=== PATIENT | female | born 1945 | race Caucasian/White ===

== ENCOUNTER 2020-11-27 16:31 | Inpatient (IN) | payer MEDICAID ==
[~2020-11-27] VITALS: Ht 160 cm; Wt 92.0 kg
[2020-11-27 19:00] VITALS: BP 133/82
[2020-11-27 23:00] VITALS: BP 123/80
[2020-11-27] MEDS: IV NORMAL SALINE 1000ML BAG 1,000 ML IV SCH (23:12)
[2020-11-27] MEDS: MORPHINE SULFATE 2 MG/ML VIAL. IV PRN (23:12)
[2020-11-27] MEDS: CIPROFLOXACIN 200MG PREMIX 100 ML IV SCH (23:13)
[2020-11-28] MEDS: MORPHINE SULFATE 2 MG/ML VIAL. IV PRN ×4 (02:33→18:28)
[2020-11-28 03:00] VITALS: BP 152/104
[2020-11-28 05:34] LABS: BASO % 0 % (0-3); EOS # 0.1 x10^3/uL (0.0-0.7); EOS % 1 % (0-3); HEMATOCRIT 39.7 % (36.0-47.0); HEMOGLOBIN 12.9 g/dL (12.0-15.5); LYMPH # 1.6 x10^3/uL (1.0-4.8); LYMPH % 12 % (24-48); MEAN CORPUSCULAR HEMOGLOBIN 27 pg (25-35); MEAN CORPUSCULAR HGB CONC 33 g/dL (31-37); MEAN CORPUSCULAR VOLUME 84 fL (79-100); MONO # 0.8 x10^3/uL (0.0-1.1); MONO % 7 % (0-9); NEUT # 10.2 x10^3/uL (1.8-7.7); NEUT % 80 % (31-73); PLATELET COUNT 415 x10^3/uL (140-400); RED BLOOD COUNT 4.73 x10^6/uL (3.50-5.40); RED CELL DISTRIBUTION WIDTH 15.4 % (11.5-14.5); WHITE BLOOD COUNT 12.7 x10^3/uL (4.0-11.0)
[2020-11-28 06:24] LABS: ALBUMIN 3.3 g/dL (3.4-5.0); ALBUMIN/GLOBULIN RATIO 0.9 (1.0-1.7); CALCIUM 8.9 mg/dL (8.5-10.1); CREATININE 0.8 mg/dL (0.6-1.0); GFR 70.5; POTASSIUM 3.5 mmol/L (3.5-5.1); TOTAL BILIRUBIN 0.4 mg/dL (0.2-1.0); TOTAL PROTEIN 7.1 g/dL (6.4-8.2)
[2020-11-28 07:00] VITALS: BP 116/73
--- NOTE | 2020-11-28 09:01 | PDOC2 ---
CONSULT Date of Consult Date of Consult DATE: 11/28/20 TIME: 08:52 Reason for Consult Reason for Consult: cholelithiasis Referring Physician Referring Physician: ER Identification/Chief Complaint Chief Complaint abdominal pain Source Source: Chart review, Patient History of Present Illness Reason for Visit: Patient is a poor historian. Report longstanding hx of upper abdominal pain. Worsening this last week. Acidic foods seem to aggravate pain. She does report intermittent issues with diarrhea chronically Thinks shes had ulcers in the past, not really sure-her almond sorter is not present Past Medical History Past Medical History fibromyalsia CENTRAL NERVOUS SYSTEM: Seizure GI: GERD, Peptic Ulcer disease (?) Psych: Depression Past Surgical History Past Surgical History: Cholecystectomy, Hysterectomy Family History Family History: Family History Unknown Social History No ALCOHOL: none Drugs: None Current Medications Current Medications Current Medications Sodium Chloride 1,000 ml @ 75 mls/hr [id number] IV Last administered on 11/27/20at 23:12; Start 11/27/20 at 22:45 Metronidazole 100 ml @ 100 mls/hr Q12HR IV Last administered on 11/27/20at 23:45; Start 11/27/20 at 23:00 Ciprofloxacin/ Dextrose 100 ml @ 100 mls/hr Q12HR IV Last administered on 11/27/20at 23:13; Start 11/27/20 at 23:00 Morphine Sulfate (Morphine Sulfate) 2 mg PRN Q3HRS PRN IV PAIN Last administered on 11/28/20at 05:38; Start 11/27/20 at 22:45 Ondansetron HCl (Zofran) 4 mg PRN Q4HRS PRN IVP NAUSEA/VOMITING; Start 11/27/20 at 22:45 Allergies Allergies: Coded Allergies: No Known Drug Allergies (Unverified , 11/27/20) ROS General: YES: Fatigue; No: Chills PSYCHOLOGICAL ROS: No: Anxiety, Depression Eyes: No Blurry vision, No Double vision HEENT: No: Heacaches, Sore Throat Hematological and Lymphatic: No: Bleeding Problems, Blood Clots Respiratory: No: Cough, Shortness of breath Cardiovascular: No Chest Pain, No Palpitations Gastrointestinal: Yes Other (see hpi) Genitourinary: No Dysuria, No Retention Musculoskeletal: No Joint Pain, No Muscle Pain Neurological: No Impaired Coord/balance, No Numbness/Tingling Skin: No Pruritus, No Rash Physical Exam General: Alert, Oriented X3, Cooperative HEENT: Atraumatic, PERRLA Lungs: Clear to auscultation, Normal air movement Heart: Regular rate, Normal S1, Normal S2 Abdomen: Normal bowel sounds, Soft, Other (mild epigastric TTP) Extremities: No clubbing, No cyanosis Skin: No rashes, No breakdown Neuro: Normal gait, Normal speech Psych/Mental Status: Mental status NL, Mood NL MUSCULOSKELETAL: No deformity, No swelling Vitals VITALS Vital Signs Date Time Temp Pulse Resp B/P (MAP) Pulse Ox O2 Delivery O2 Flow Rate FiO2 11/28/20 07:00 97.5 85 18 116/73 (87) 95 Room Air 97.5 Labs Labs Laboratory Tests Test 11/28/20 04:10 White Blood Count 12.7 x10^3/uL (4.0-11.0) Red Blood Count 4.73 x10^6/uL (3.50-5.40) Hemoglobin 12.9 g/dL (12.0-15.5) Hematocrit 39.7 % (36.0-47.0) Mean Corpuscular Volume 84 fL (79-100) Mean Corpuscular Hemoglobin 27 pg (25-35) Mean Corpuscular Hemoglobin Concent 33 g/dL (31-37) Red Cell Distribution Width 15.4 % (11.5-14.5) Platelet Count 415 x10^3/uL (140-400) Neutrophils (%) (Auto) 80 % (31-73) Lymphocytes (%) (Auto) 12 % (24-48) Monocytes (%) (Auto) 7 % (0-9) Eosinophils (%) (Auto) 1 % (0-3) Basophils (%) (Auto) 0 % (0-3) Neutrophils # (Auto) 10.2 x10^3/uL (1.8-7.7) Lymphocytes # (Auto) 1.6 x10^3/uL (1.0-4.8) Monocytes # (Auto) 0.8 x10^3/uL (0.0-1.1) Eosinophils # (Auto) 0.1 x10^3/uL (0.0-0.7) Basophils # (Auto) 0.0 x10^3/uL (0.0-0.2) Sodium Level 142 mmol/L (136-145) Potassium Level 3.5 mmol/L (3.5-5.1) Chloride Level 104 mmol/L (98-107) Carbon Dioxide Level 25 mmol/L (21-32) Anion Gap 13 (6-14) Blood Urea Nitrogen 11 mg/dL (7-20) Creatinine 0.8 mg/dL (0.6-1.0) Estimated GFR (Cockcroft-Gault) 70.5 BUN/Creatinine Ratio 14 (6-20) Glucose Level 124 mg/dL (70-99) Calcium Level 8.9 mg/dL (8.5-10.1) Total Bilirubin 0.4 mg/dL (0.2-1.0) Aspartate Amino Transf (AST/SGOT) 36 U/L (15-37) Alanine Aminotransferase (ALT/SGPT) 21 U/L (14-59) Alkaline Phosphatase 102 U/L (46-116) Total Protein 7.1 g/dL (6.4-8.2) Albumin 3.3 g/dL (3.4-5.0) Albumin/Globulin Ratio 0.9 (1.0-1.7) Laboratory Tests Test 11/28/20 04:10 White Blood Count 12.7 x10^3/uL (4.0-11.0) Red Blood Count 4.73 x10^6/uL (3.50-5.40) Hemoglobin 12.9 g/dL (12.0-15.5) Hematocrit 39.7 % (36.0-47.0) Mean Corpuscular Volume 84 fL (79-100) Mean Corpuscular Hemoglobin 27 pg (25-35) Mean Corpuscular Hemoglobin Concent 33 g/dL (31-37) Red Cell Distribution Width 15.4 % (11.5-14.5) Platelet Count 415 x10^3/uL (140-400) Neutrophils (%) (Auto) 80 % (31-73) Lymphocytes (%) (Auto) 12 % (24-48) Monocytes (%) (Auto) 7 % (0-9) Eosinophils (%) (Auto) 1 % (0-3) Basophils (%) (Auto) 0 % (0-3) Neutrophils # (Auto) 10.2 x10^3/uL (1.8-7.7) Lymphocytes # (Auto) 1.6 x10^3/uL (1.0-4.8) Monocytes # (Auto) 0.8 x10^3/uL (0.0-1.1) Eosinophils # (Auto) 0.1 x10^3/uL (0.0-0.7) Basophils # (Auto) 0.0 x10^3/uL (0.0-0.2) Sodium Level 142 mmol/L (136-145) Potassium Level 3.5 mmol/L (3.5-5.1) Chloride Level 104 mmol/L (98-107) Carbon Dioxide Level 25 mmol/L (21-32) Anion Gap 13 (6-14) Blood Urea Nitrogen 11 mg/dL (7-20) Creatinine 0.8 mg/dL (0.6-1.0) Estimated GFR (Cockcroft-Gault) 70.5 BUN/Creatinine Ratio 14 (6-20) Glucose Level 124 mg/dL (70-99) Calcium Level 8.9 mg/dL (8.5-10.1) Total Bilirubin 0.4 mg/dL (0.2-1.0) Aspartate Amino Transf (AST/SGOT) 36 U/L (15-37) Alanine Aminotransferase (ALT/SGPT) 21 U/L (14-59) Alkaline Phosphatase 102 U/L (46-116) Total Protein 7.1 g/dL (6.4-8.2) Albumin 3.3 g/dL (3.4-5.0) Albumin/Globulin Ratio 0.9 (1.0-1.7) Assessment/Plan Assessment/Plan abdominal pain s/p marc many years ago Ct findings with possible distal CBD stone--LFTS normal wall thickening to duodenum--possible doudenitis vs PUD, possible doudenal soft tissue density await Gi RAQUEL Pimentel APRN Nov 28, 2020 09:01
[2020-11-28] MEDS: CIPROFLOXACIN 200MG PREMIX 100 ML IV SCH ×2 (09:05→21:27)
--- NOTE | 2020-11-28 09:23 | PDOC2 ---
GI CONSULT Date of Service: DATE: 11/28/20 TIME: 09:23 Reason For Consult: cholelithiasis HPI: HPI: 74 y/o female sent from [facility]. Ill for >1 month w/ fatigue and "pins and needles" feeling all over abdomen (but mostly BLQ) - occurs randomly. Also describes intermittent epigastric pain and says "I can't eat citrus." No n/v. Had diarrhea once a couple days ago. CT A/P w/ IV contrast showed focal mucosal defect in the left lateral wall of the duodenal bulb with mild wall thickening and subtle adjacent fat stranding suggestive of mild duodenitis probably secondary to peptic ulcer disease, also anterior to this there is an ill-defined 1.4cm soft tissue density within the duodenal bulb (prominent fold vs neoplasm), slightly worsening intrapheatic and extrahepatic biliary ductal dilation w/ smooth tapering distally w/ 6cm calcified focus in distal CBD, sigmoid diverticulosis, small to moderate hiatal hernia, atrophic pancreas w/ fat infiltration. H/o GERD - thinks she takes a pill for this but not sure what; her shellfish shucker manages her medications. No dysphagia, constipation, hematochezia, or melena. Has lost 24 pounds - timing unclear. Reports previous EGDs and colonoscopies - "it's been a long time." These were performed in [place] and somewhere in the area. Says "I have four ulcers." Thinks she had cholecystectomy at time of hysterectomy after miscarriage. Doesn't recall specific details. Denies liver and pancreas history. Denies NSAID use. D/w nurse - no med list available for review. PMH: PMH: fibromyalgia, depression, seizures hysterectomy, cholecystectomy, ankle surgeries w/ hardware FH: Family History: No pertinent hx Social History: Smoke: No ALCOHOL: rare (on New Year's Christine if her doctor says it's okay) Drugs: None ROS: GEN: +fatigue HEENT: Denies blurred vision, sore throat CV: Denies chest pain RESP: Denies shortness of air, cough GI: Per HPI : Denies hematuria, dysuria ENDO: +weight loss NEURO: Denies confusion, dizziness MSK: Denies weakness, joint pain/swelling SKIN: Denies jaundice, pruritus Vitals: Vitals: Vital Signs Date Time Temp Pulse Resp B/P (MAP) Pulse Ox O2 Delivery O2 Flow Rate FiO2 11/28/20 07:00 97.5 85 18 116/73 (87) 95 Room Air 97.5 Labs: Labs: Laboratory Tests Test 11/28/20 04:10 White Blood Count 12.7 x10^3/uL (4.0-11.0) Red Blood Count 4.73 x10^6/uL (3.50-5.40) Hemoglobin 12.9 g/dL (12.0-15.5) Hematocrit 39.7 % (36.0-47.0) Mean Corpuscular Volume 84 fL (79-100) Mean Corpuscular Hemoglobin 27 pg (25-35) Mean Corpuscular Hemoglobin Concent 33 g/dL (31-37) Red Cell Distribution Width 15.4 % (11.5-14.5) Platelet Count 415 x10^3/uL (140-400) Neutrophils (%) (Auto) 80 % (31-73) Lymphocytes (%) (Auto) 12 % (24-48) Monocytes (%) (Auto) 7 % (0-9) Eosinophils (%) (Auto) 1 % (0-3) Basophils (%) (Auto) 0 % (0-3) Neutrophils # (Auto) 10.2 x10^3/uL (1.8-7.7) Lymphocytes # (Auto) 1.6 x10^3/uL (1.0-4.8) Monocytes # (Auto) 0.8 x10^3/uL (0.0-1.1) Eosinophils # (Auto) 0.1 x10^3/uL (0.0-0.7) Basophils # (Auto) 0.0 x10^3/uL (0.0-0.2) Sodium Level 142 mmol/L (136-145) Potassium Level 3.5 mmol/L (3.5-5.1) Chloride Level 104 mmol/L (98-107) Carbon Dioxide Level 25 mmol/L (21-32) Anion Gap 13 (6-14) Blood Urea Nitrogen 11 mg/dL (7-20) Creatinine 0.8 mg/dL (0.6-1.0) Estimated GFR (Cockcroft-Gault) 70.5 BUN/Creatinine Ratio 14 (6-20) Glucose Level 124 mg/dL (70-99) Calcium Level 8.9 mg/dL (8.5-10.1) Total Bilirubin 0.4 mg/dL (0.2-1.0) Aspartate Amino Transf (AST/SGOT) 36 U/L (15-37) Alanine Aminotransferase (ALT/SGPT) 21 U/L (14-59) Alkaline Phosphatase 102 U/L (46-116) Total Protein 7.1 g/dL (6.4-8.2) Albumin 3.3 g/dL (3.4-5.0) Albumin/Globulin Ratio 0.9 (1.0-1.7) Allergies: Coded Allergies: No Known Drug Allergies (Unverified , 11/27/20) Medications: Current Medications Medications (Trade) Dose Ordered Sig/Lucas Route PRN Reason Start Time Stop Time Status Last Admin Dose Admin Sodium Chloride 1,000 ml @ 75 mls/hr [id number] IV 11/27/20 22:45 11/27/20 23:12 Metronidazole 100 ml @ 100 mls/hr Q12HR IV 11/27/20 23:00 11/27/20 23:45 Ciprofloxacin/ Dextrose 100 ml @ 100 mls/hr Q12HR IV 11/27/20 23:00 11/28/20 09:05 Morphine Sulfate (Morphine Sulfate) 2 mg PRN Q3HRS PRN IV PAIN 11/27/20 22:45 11/28/20 05:38 Imaging: Imaging: per HPI PE: GEN: NAD HEENT: Atraumatic, PERRL LUNGS: CTAB HEART: RRR ABD: NABS, S/ND/NT EXTREMITY: No edema SKIN: No rashes, no jaundice NEURO/PSYCH: A & O 3 A/P: A/P: Fatigue, abd pain, weight loss Leukocytosis Abnormal CT: focal mucosal defect in left lateral wall of duodenal bulb with mild wall thickening and subtle adjacent fat stranding suggestive of mild duodenitis, 1.4cm soft tissue density within duodenal bulb, slightly worsening intrapheatic and extrahepatic biliary ductal dilation w/ smooth tapering distally, 6cm calcified focus in distal CBD GERD, hiatal hernia, h/o PUD CRC screen - reports normal colonoscopies in the past Diverticulosis S/p cholecystectomy ?dementia -- Abd pain and weight loss w/ duodenal abnormalities, ?choledocholithaisis, worsening biliary dilation - LFTs normal. D/w Deanne/surgery. D/w Dr. Horowitz - will ask for MRCP. NPO, IV PPI for now. ?need for atbx MELONIE CASTANO Nov 28, 2020 09:23
--- NOTE | 2020-11-28 10:10 | NUR ---
SW following. Discussed with RN, pt from home alone, room air, NPO. Surgery and GI following. RN ordering PT/OT. Pt reporting she has a caregiver everyday. SW awaiting further plan of care. SW will continue to follow.
[2020-11-28] MEDS: ONDANSETRON PF 4 MG/2 ML VIAL. IVP PRN ×2 (10:30→18:20)
[2020-11-28] MEDS: PANTOPRAZOLE IV PUSH 40 MG VIAL. IVP SCH (10:30)
--- NOTE | 2020-11-28 10:52 | PDOC1 ---
History and Physical Date of Admission Date of Admission DATE: 11/28/20 TIME: 10:51 Identification/Chief Complaint Chief Complaint abdominal pain, transfer from [facility] History of Present Illness History of Present Illness 74 yr old female with complaint of persistent abdominal pain Reports previous EGDs and colonoscopies with hx PUD Past Medical History Past Medical History PMH: PMH: fibromyalgia, depression, seizures hysterectomy, cholecystectomy, ankle surgeries w/ hardware FH: Family History: No pertinent hx Social History: Smoke: No ALCOHOL: rare (on New Year's Christine if her doctor says it's okay) Drugs: None CENTRAL NERVOUS SYSTEM: Seizure GI: GERD, Peptic Ulcer disease (?) Psych: Depression Dermatology: No pertinent hx Past Surgical History Past Surgical History: Cholecystectomy, Hysterectomy Family History Family History: Family History Unknown Social History Smoke: No ALCOHOL: none Drugs: None Current Medications Current Medications Current Medications Sodium Chloride 1,000 ml @ 75 mls/hr [id number] IV Last administered on 11/27/20at 23:12; Start 11/27/20 at 22:45 Metronidazole 100 ml @ 100 mls/hr Q12HR IV Last administered on 11/28/20at 10:20; Start 11/27/20 at 23:00 Ciprofloxacin/ Dextrose 100 ml @ 100 mls/hr Q12HR IV Last administered on 11/28/20at 09:05; Start 11/27/20 at 23:00 Morphine Sulfate (Morphine Sulfate) 2 mg PRN Q3HRS PRN IV PAIN Last administered on 11/28/20at 10:27; Start 11/27/20 at 22:45 Ondansetron HCl (Zofran) 4 mg PRN Q4HRS PRN IVP NAUSEA/VOMITING Last administered on 11/28/20at 10:30; Start 11/27/20 at 22:45 Pantoprazole Sodium (PROTONIX VIAL for IV PUSH) 40 mg DAILYAC IVP Last administered on 11/28/20at 10:30; Start 11/28/20 at 10:00 Allergies Allergies: Coded Allergies: No Known Drug Allergies (Unverified , 11/27/20) ROS General: No: Chills, Night Sweats, Fatigue, Malaise, Appetite, Other PSYCHOLOGICAL ROS: No: Anxiety, Behavioral Disorder, Concentration difficultie, Decreased libido, Depression, Disorientation, Hallucinations, Hostility, Ir ritablity, Memory difficulties, Mood Swings, Obsessive thoughts, Physical abuse, Sexual abuse, Sleep disturbances, Suicidal ideation, Other Eyes: No Blurry vision, No Decreased vision, No Double vision, No Dry eyes, No Excessive tearing, No Eye Pain, No Itchy Eyes, No Loss of vision, No Photophobia, No Scotomata, No Uses contacts, No Uses glasses, No Other HEENT: No: Heacaches, Visual Changes, Hearing change, Nasal congestion, Nasal discharge, Oral lesions, Sinus pain, Sore Throat, Epistaxis, Sneezing, Snoring, Tinnitus, Vertigo, Vocal changes, Other ALLERGY AND IMMUNOLOGY: No: Hives, Insect Bite Sensitivity, Itchy/Watery Eyes, Nasal Congestion, Post Nasal Drip, Seasonal Allergies, Other Hematological and Lymphatic: No: Bleeding Problems, Blood Clots, Blood Transfusions, Brusing, Night Sweats, Pallor, Swollen Lymph Nodes, Other ENDOCRINE: No: Breast Changes, Galactorrhea, Hair Pattern Changes, Hot Flashes, Malaise/lethargy, Mood Swings, Palpitations, Polydipsia/polyuria, Skin Changes, Temperature Intolerance, Unexpected Weight Changes, Other Breast: No New/Changing Breast Lumps, No Nipple changes, No Nipple discharge, No Other Respiratory: No: Cough, Hemoptysis, Orthopnea, Pleuritic Pain, Shortness of breath, SOB with excertion, Sputum Changes, Stridor, Tachypnea, Wheezing, Other Cardiovascular: No Chest Pain, No Palpitations, No Orthopnea, No Paroxysmal Noc. Dyspnea, No Edema, No Lt Headedness, No Other Gastrointestinal: Yes Nausea, Yes Abdominal Pain; No Vomiting, No Diarrhea, No Constipation, No Melena, No Hematochezia, No Other Genitourinary: No Dysuria, No Frequency, No Incontinence, No Hematuria, No Retention, No Discharge, No Urgency, No Pain, No Flank Pain, No Other, No , No , No , No , No , No , No Musculoskeletal: Yes Gait Disturbance Neurological: No Behavorial Changes, No Bowel/Bladder ControlChng, No Confusion, No Dizziness, No Gait Disturbance, No Headaches, No Impaired Coord/balance, No Memory Loss, No Numbness/Tingling, No Seizures, No Speech Pr oblems, No Tremors, No Visual Changes, No Weakness, No Other Skin: No Dry Skin, No Eczema, No Hair Changes, No Lumps, No Mole Changes, No Mottling, No Nail Changes, No Pruritus, No Rash, No Skin Lesion Changes, No Other, No Acne Physical Exam General: Alert, Oriented X3, Cooperative, No acute distress HEENT: PERRLA Lungs: Clear to auscultation, Normal air movement Heart: RRR Breasts: Not examined Abdomen: Normal bowel sounds, Soft, No tenderness Rectal Exam: not examined PELVIC: Examination not indicated Extremities: No cyanosis Neuro: Normal speech, Strength at 5/5 X4 ext, Cranial nerves 3-12 NL Psych/Mental Status: Mental status NL, Mood NL Vitals Vitals Vital Signs Date Time Temp Pulse Resp B/P (MAP) Pulse Ox O2 Delivery O2 Flow Rate FiO2 11/28/20 07:00 97.5 85 18 116/73 (87) 95 Room Air 97.5 Labs Labs Laboratory Tests Test 11/28/20 04:10 White Blood Count 12.7 x10^3/uL (4.0-11.0) Red Blood Count 4.73 x10^6/uL (3.50-5.40) Hemoglobin 12.9 g/dL (12.0-15.5) Hematocrit 39.7 % (36.0-47.0) Mean Corpuscular Volume 84 fL (79-100) Mean Corpuscular Hemoglobin 27 pg (25-35) Mean Corpuscular Hemoglobin Concent 33 g/dL (31-37) Red Cell Distribution Width 15.4 % (11.5-14.5) Platelet Count 415 x10^3/uL (140-400) Neutrophils (%) (Auto) 80 % (31-73) Lymphocytes (%) (Auto) 12 % (24-48) Monocytes (%) (Auto) 7 % (0-9) Eosinophils (%) (Auto) 1 % (0-3) Basophils (%) (Auto) 0 % (0-3) Neutrophils # (Auto) 10.2 x10^3/uL (1.8-7.7) Lymphocytes # (Auto) 1.6 x10^3/uL (1.0-4.8) Monocytes # (Auto) 0.8 x10^3/uL (0.0-1.1) Eosinophils # (Auto) 0.1 x10^3/uL (0.0-0.7) Basophils # (Auto) 0.0 x10^3/uL (0.0-0.2) Sodium Level 142 mmol/L (136-145) Potassium Level 3.5 mmol/L (3.5-5.1) Chloride Level 104 mmol/L (98-107) Carbon Dioxide Level 25 mmol/L (21-32) Anion Gap 13 (6-14) Blood Urea Nitrogen 11 mg/dL (7-20) Creatinine 0.8 mg/dL (0.6-1.0) Estimated GFR (Cockcroft-Gault) 70.5 BUN/Creatinine Ratio 14 (6-20) Glucose Level 124 mg/dL (70-99) Calcium Level 8.9 mg/dL (8.5-10.1) Total Bilirubin 0.4 mg/dL (0.2-1.0) Aspartate Amino Transf (AST/SGOT) 36 U/L (15-37) Alanine Aminotransferase (ALT/SGPT) 21 U/L (14-59) Alkaline Phosphatase 102 U/L (46-116) Total Protein 7.1 g/dL (6.4-8.2) Albumin 3.3 g/dL (3.4-5.0) Albumin/Globulin Ratio 0.9 (1.0-1.7) Laboratory Tests Test 11/28/20 04:10 White Blood Count 12.7 x10^3/uL (4.0-11.0) Red Blood Count 4.73 x10^6/uL (3.50-5.40) Hemoglobin 12.9 g/dL (12.0-15.5) Hematocrit 39.7 % (36.0-47.0) Mean Corpuscular Volume 84 fL (79-100) Mean Corpuscular Hemoglobin 27 pg (25-35) Mean Corpuscular Hemoglobin Concent 33 g/dL (31-37) Red Cell Distribution Width 15.4 % (11.5-14.5) Platelet Count 415 x10^3/uL (140-400) Neutrophils (%) (Auto) 80 % (31-73) Lymphocytes (%) (Auto) 12 % (24-48) Monocytes (%) (Auto) 7 % (0-9) Eosinophils (%) (Auto) 1 % (0-3) Basophils (%) (Auto) 0 % (0-3) Neutrophils # (Auto) 10.2 x10^3/uL (1.8-7.7) Lymphocytes # (Auto) 1.6 x10^3/uL (1.0-4.8) Monocytes # (Auto) 0.8 x10^3/uL (0.0-1.1) Eosinophils # (Auto) 0.1 x10^3/uL (0.0-0.7) Basophils # (Auto) 0.0 x10^3/uL (0.0-0.2) Sodium Level 142 mmol/L (136-145) Potassium Level 3.5 mmol/L (3.5-5.1) Chloride Level 104 mmol/L (98-107) Carbon Dioxide Level 25 mmol/L (21-32) Anion Gap 13 (6-14) Blood Urea Nitrogen 11 mg/dL (7-20) Creatinine 0.8 mg/dL (0.6-1.0) Estimated GFR (Cockcroft-Gault) 70.5 BUN/Creatinine Ratio 14 (6-20) Glucose Level 124 mg/dL (70-99) Calcium Level 8.9 mg/dL (8.5-10.1) Total Bilirubin 0.4 mg/dL (0.2-1.0) Aspartate Amino Transf (AST/SGOT) 36 U/L (15-37) Alanine Aminotransferase (ALT/SGPT) 21 U/L (14-59) Alkaline Phosphatase 102 U/L (46-116) Total Protein 7.1 g/dL (6.4-8.2) Albumin 3.3 g/dL (3.4-5.0) Albumin/Globulin Ratio 0.9 (1.0-1.7) Images Images It helps to think and talk about your own wishes for healthcare in case youre ever not able to tell your loved ones or healthcare team what your wishes are. If you became really sick tomorrow, would your loved ones or healthcare team know what your wishes were? Here are some examples of different sets of goals and health care directives for your conversations: My wish is to use all medical therapies including resuscitation (such as CPR) and artificial life- sustaining treatments (such as machines and medicine) in an intensive care unit, to keep me alive if at all possible. My wish is to live as long as possible, but I dont want attempts to bring me back to life if my heart and breathing stop. I would like full medical care but without using resuscitation or artificial life-sustaining intensive treatments, if these are unlikely to make me live longer or restore me to a certain quality of life. I will accept treatments that try to fix medical problems, but if Im not getting better or going to have a certain quality of life, I would want to switch to focusing only on my comfort and letting my happen naturally. My wish is for healthcare to focus on my comfort and lessen suffering. I would like medical care that focuses only on my quality of life and that allows me to naturally. Consider: What does a good quality of life mean for me? For many people, it is the ability to live independently and tell their own story. I may define it differently. Under what circumstances would I not want to be kept alive by medical treatments, resuscitation, or intensive care? What kind of changes to my health or life might make me change my mind? If I clearly am facing the last chapter of my life, how do I want the story to end? Who do I want to speak for me if I cant speak for myself? Do they understand my preferences? Are they willing to assume the role of my Durable Power of Casing Tester? Can I change my Goals of Care Designation? Yes, your Goals of Care Designation can be changed at any time. It should be reviewed if: your health condition changes your circumstances change (such as new understanding) you are transferred or admitted to another healthcare setting dpoa review to pt portal and questions 22 min VTE Prophylaxis Ordered VTE Prophylaxis Devices: Yes VTE Pharmacological Prophylaxi: Yes Assessment/Plan Assessment/Plan impression Intractable abdominal hi Choledocholithiasis Ct findings with possible distal CBD stone--LFTS normal wall thickening to duodenum--possible doudenitis vs PUD, possible doudenal soft tissue density morbid obesity hx CAD PREDIABETES MAJOR depressive disorder osteoarthritis incontinence, urinary, chronis HX PUD, Duodenal ulcer hyperlipidemia Epilepsy hx COPD PLAN Admit per GI/ Dr. Horowitz - MRCP. NPO, IV PPI for now. iv pain control D/W ER Justifications for Admission Other Justification KHAI CARTER MD Nov 28, 2020 10:51
[2020-11-28] MEDS ORDERED: TRAZ-118 PO (10:58)
[2020-11-28] MEDS ORDERED: ONDA4TAB7 PO (10:58)
[2020-11-28 11:00] VITALS: BP 134/77
[2020-11-28] MEDS ORDERED: DULO60CA6 PO (11:00)
[2020-11-28] MEDS ORDERED: CETI10TA74 PO (11:00)
[2020-11-28] MEDS ORDERED: LEVE500T6 PO (11:00)
[2020-11-28] MEDS ORDERED: MONT10TA49 PO (11:01)
[2020-11-28] MEDS ORDERED: LISI2.5T PO (11:07)
[2020-11-28] MEDS ORDERED: PROAIR RESPICL90 MCG IH (11:07)
[2020-11-28] MEDS ORDERED: PRAV40TA2 PO (11:07)
[2020-11-28] MEDS ORDERED: DICL20GE TP (11:07)
[2020-11-28] MEDS ORDERED: CARV25TA2 PO (11:07)
[2020-11-28] MEDS ORDERED: FLUT9.9S NS (11:07)
[2020-11-28] MEDS ORDERED: FAMO40TA4 PO (11:07)
[2020-11-28] MEDS ORDERED: QUET50TA5 PO (11:07)
[2020-11-28] MEDS ORDERED: SUCR1TAB PO (11:07)
[2020-11-28] MEDS: IV NORMAL SALINE 1000ML BAG 1,000 ML IV SCH (12:14)
[2020-11-28 15:00] VITALS: BP 110/69
--- NOTE | 2020-11-28 17:04 | NUR ---
Dr. Manriquez gave order to decrease pt IV fluids to 50ml/hr
[2020-11-28 19:00] VITALS: BP 119/76
[2020-11-28 23:00] VITALS: BP 109/66
[2020-11-29 02:26] LABS: BILIRUBIN,URINE NEGATIVE (NEG); CLARITY,URINE CLEAR; COLOR,URINE YELLOW; NITRITE,URINE NEGATIVE (NEG); PH,URINE 6.5 (<5.0-8.0); PROTEIN,URINE NEGATIVE (NEG-TRACE); UROBILINOGEN,URINE 0.2 mg/dL (0.2 mg/dL)
[2020-11-29 02:32] LABS: BACTERIA,URINE 0 /HPF (0-FEW); RBC,URINE 0 /HPF (0-2)
[2020-11-29 03:00] VITALS: BP 99/45
[2020-11-29] MEDS: IV NORMAL SALINE 1000ML BAG 1,000 ML IV SCH ×2 (03:27→14:45)
[2020-11-29 07:00] VITALS: BP 99/52
[2020-11-29] MEDS: MORPHINE SULFATE 2 MG/ML VIAL. IV PRN (07:43)
[2020-11-29] MEDS: ONDANSETRON PF 4 MG/2 ML VIAL. IVP PRN (07:43)
[2020-11-29] MEDS: PANTOPRAZOLE IV PUSH 40 MG VIAL. IVP SCH (07:43)
[2020-11-29 07:51] LABS: HEMATOCRIT 34.9 % (36.0-47.0); HEMOGLOBIN 11.3 g/dL (12.0-15.5); RED BLOOD COUNT 4.12 x10^6/uL (3.50-5.40); RED CELL DISTRIBUTION WIDTH 15.5 % (11.5-14.5); WHITE BLOOD COUNT 9.8 x10^3/uL (4.0-11.0)
[2020-11-29 08:01] LABS: ALBUMIN 2.7 g/dL (3.4-5.0); ALBUMIN/GLOBULIN RATIO 0.8 (1.0-1.7); CALCIUM 8.2 mg/dL (8.5-10.1); CREATININE 0.9 mg/dL (0.6-1.0); GFR 61.5; POTASSIUM 3.5 mmol/L (3.5-5.1); TOTAL BILIRUBIN 0.3 mg/dL (0.2-1.0); TOTAL PROTEIN 5.9 g/dL (6.4-8.2)
[2020-11-29] MEDS: CIPROFLOXACIN 200MG PREMIX 100 ML IV SCH ×4 (08:34→20:28)
--- NOTE | 2020-11-29 09:27 | PDOC ---
Date of Service: DATE: 11/29/20 TIME: 09:22 Subjective: Subjective: Feels fine, just waiting. Had a hard time sleeping because it gets light so early. Objective: Vital Signs: Vital Signs Date Time Temp Pulse Resp B/P (MAP) Pulse Ox O2 Delivery O2 Flow Rate FiO2 11/29/20 07:00 98.0 72 18 99/52 (68) 94 Room Air 98.0 Labs: Laboratory Tests Test 11/29/20 02:00 11/29/20 07:00 Urine Collection Type Unknown Urine Color Yellow Urine Clarity Clear Urine pH 6.5 Urine Specific [place] <=1.005 Urine Protein Negative mg/dL Urine Glucose (UA) Negative mg/dL Urine Ketones (Stick) Negative mg/dL Urine Blood Negative Urine Nitrite Negative Urine Bilirubin Negative Urine Urobilinogen Dipstick 0.2 mg/dL Urine Leukocyte Esterase Trace Urine RBC 0 /HPF Urine WBC 5-10 /HPF Urine Squamous Epithelial Cells Few /LPF Urine Bacteria 0 /HPF White Blood Count 9.8 x10^3/uL Red Blood Count 4.12 x10^6/uL Hemoglobin 11.3 g/dL Hematocrit 34.9 % Mean Corpuscular Volume 85 fL Mean Corpuscular Hemoglobin 27 pg Mean Corpuscular Hemoglobin Concent 32 g/dL Red Cell Distribution Width 15.5 % Platelet Count 369 x10^3/uL Sodium Level 143 mmol/L Potassium Level 3.5 mmol/L Chloride Level 109 mmol/L Carbon Dioxide Level 26 mmol/L Anion Gap 8 Blood Urea Nitrogen 6 mg/dL Creatinine 0.9 mg/dL Estimated GFR (Cockcroft-Gault) 61.5 BUN/Creatinine Ratio 7 Glucose Level 97 mg/dL Calcium Level 8.2 mg/dL Total Bilirubin 0.3 mg/dL Aspartate Amino Transf (AST/SGOT) 24 U/L Alanine Aminotransferase (ALT/SGPT) 19 U/L Alkaline Phosphatase 84 U/L Total Protein 5.9 g/dL Albumin 2.7 g/dL Albumin/Globulin Ratio 0.8 PE: GEN: NAD LUNGS: CTAB HEART: RRR ABD: NABS, S/ND/NT NEURO/PSYCH: A & O 3 A/P: Fatigue, abd pain (none today), weight loss Mild anemia Abnormal duodenum, biliary dilation, focus in distal CBD s/p cholecystectomy w/ h/o PUD -- Awaiting MRCP. LFTs still normal. Urine cx pending. Check anemia parameters for completeness. Justicifation of Admission Dx: Justifications for Admission: Justification of Admission Dx: Yes MELONIE CASTANO Nov 29, 2020 09:27
--- NOTE | 2020-11-29 10:22 | NUR ---
SW following. Discussed with RN, pt from home alone, room air, NPO. Pt having an MRCP today. PT/OT ordered - RN feels pt doesn't really need therapy, as she got up to the restroom with ASHLEY JOEL speaking to Dr. Manriquez about cancelling therapy orders. RN advised no SW needs at this time. SW will continue to follow.
--- NOTE | 2020-11-29 13:32 | PDOC ---
[employer] PROGRESS NOTE Date of Service DOS: DATE: 11/29/20 TIME: 13:29 Chief Complaint Chief Complaint Intractable abdominal hi Choledocholithiasis Ct findings with possible distal CBD stone--LFTS normal wall thickening to duodenum--possible doudenitis vs PUD, possible doudenal soft tissue density morbid obesity hx CAD PREDIABETES MAJOR depressive disorder osteoarthritis incontinence, urinary, chronis HX PUD, Duodenal ulcer hyperlipidemia Epilepsy hx COPD PLAN Admit per GI/ Dr. Horowitz - MRCP. NPO, IV PPI for now. iv pain control History of Present Illness History of Present Illness 74 yr old female with complaint of persistent abdominal pain Reports previous EGDs and colonoscopies with hx PUD 11/29/2020: Afebrile. Patient reports improvement in abdominal pain. Plan for MRCP today. Discussed with RN. Vitals/I&O Vitals/I&O: Vital Signs Date Time Temp Pulse Resp B/P (MAP) Pulse Ox O2 Delivery O2 Flow Rate FiO2 11/29/20 08:00 Room Air 11/29/20 07:00 98.0 72 18 99/52 (68) 94 98.0 I & O 11/28/20 11/28/20 11/29/20 15:00 23:00 07:00 Intake Total 120 ml 1425 ml Balance 120 ml 1425 ml Physical Exam General: Alert, Oriented X3, Cooperative, No acute distress Heart: Regular rate, Normal S1, Normal S2 Abdomen: Normal bowel sounds, Soft Extremities: No cyanosis Skin: No rashes, No breakdown Labs Labs: Laboratory Tests Test 11/29/20 02:00 11/29/20 07:00 Urine Collection Type Unknown Urine Color Yellow Urine Clarity Clear Urine pH 6.5 (<5.0-8.0) Urine Specific [place] <=1.005 (1.000-1.030) Urine Protein Negative mg/dL (NEG-TRACE) Urine Glucose (UA) Negative mg/dL (NEG) Urine Ketones (Stick) Negative mg/dL (NEG) Urine Blood Negative (NEG) Urine Nitrite Negative (NEG) Urine Bilirubin Negative (NEG) Urine Urobilinogen Dipstick 0.2 mg/dL (0.2 mg/dL) Urine Leukocyte Esterase Trace (NEG) Urine RBC 0 /HPF (0-2) Urine WBC 5-10 /HPF (0-4) Urine Squamous Epithelial Cells Few /LPF Urine Bacteria 0 /HPF (0-FEW) White Blood Count 9.8 x10^3/uL (4.0-11.0) Red Blood Count 4.12 x10^6/uL (3.50-5.40) Hemoglobin 11.3 g/dL (12.0-15.5) Hematocrit 34.9 % (36.0-47.0) Mean Corpuscular Volume 85 fL (79-100) Mean Corpuscular Hemoglobin 27 pg (25-35) Mean Corpuscular Hemoglobin Concent 32 g/dL (31-37) Red Cell Distribution Width 15.5 % (11.5-14.5) Platelet Count 369 x10^3/uL (140-400) Sodium Level 143 mmol/L (136-145) Potassium Level 3.5 mmol/L (3.5-5.1) Chloride Level 109 mmol/L (98-107) Carbon Dioxide Level 26 mmol/L (21-32) Anion Gap 8 (6-14) Blood Urea Nitrogen 6 mg/dL (7-20) Creatinine 0.9 mg/dL (0.6-1.0) Estimated GFR (Cockcroft-Gault) 61.5 BUN/Creatinine Ratio 7 (6-20) Glucose Level 97 mg/dL (70-99) Calcium Level 8.2 mg/dL (8.5-10.1) Iron Level 28 ug/dL (50-170) Total Iron Binding Capacity 307 ug/dL (250-450) Iron Saturation 9 % (15-34) Total Bilirubin 0.3 mg/dL (0.2-1.0) Aspartate Amino Transf (AST/SGOT) 24 U/L (15-37) Alanine Aminotransferase (ALT/SGPT) 19 U/L (14-59) Alkaline Phosphatase 84 U/L (46-116) Total Protein 5.9 g/dL (6.4-8.2) Albumin 2.7 g/dL (3.4-5.0) Albumin/Globulin Ratio 0.8 (1.0-1.7) Vitamin B12 Level 480 pg/mL (247-911) Comment Review of Relevant I have reviewed the following items anurag (where applicable) has been applied. Justifications for Admission Other Justification ROSS LIZARRAGA MD Nov 29, 2020 13:32
--- NOTE | 2020-11-29 14:49 | RAD ---
EXAMINATION: MRI and MRCP abdomen without IV contrast. INDICATION: Abdominal pain and weight loss, possible choledocholithiasis on CT exam. TECHNIQUE: Multiplanar multisequence MRI and MRCP abdomen without IV contrast. 3-D coronal heavily T2 -weighted MRCP sequence performed. COMPARISON: CT dated 11/27/2020. FINDINGS: Within limitation of noncontrast exam, Normal morphology and size of the liver without focal lesion. No steatosis or deposition. Cholecystec jayesh. Dilated central intrahepatic and extrahepatic ducts with smooth tapering distally, the maximum diameter of the common bile duct measures 1.2 cm. There is a 5 mm nonobstructing distal choledocholit hiasis. Additional, questionable 3 mm filling defect at the ampulla. No splenomegaly. Moderate atrophic pancreatic parenchyma with fat infiltration. Prominent main pancre atic duct at the head with smooth tapering distally, measures 4 mm in maximum diameter. No adrenal nodule. No hydronephrosis. Subcentimeter simple right renal cysts measuring up to 0.9 mm. Unchanged small to moderate size hiatal hernia. Small uncomplicated D2 duodenal diverticulum. Redemon strated ill-defined 1.4 cm intermediate T2 signal intensity soft tissue within the duodenal bulb (ser ies 9 image 18). No bowel dilation. No lymphadenopathy in the abdomen by size criteria. No ascites. N ormal caliber abdominal aorta. No suspicious osseous lesion. Degenerative changes in the spine. Trace bilateral pleural effusions, new since prior exam. IMPRESSION: Within limitation of noncontrast exam, 1. Redemonstrated central intra and extrahepatic biliary ductal dilation with smooth tapering distall y. Questionable 3 mm filling defect at the ampulla, may represent an obstructing choledocholithiasis. Additional, 5 mm nonobstructing distal choledocholithiasis identified. 2. Redemonstrated ill-defined 1.4 cm soft tissue within the duodenal bulb, differential again include s prominent fold versus neoplasm. Recommend correlation with upper GI endoscopy. 3. New trace bilateral pleural effusions. Electronically signed by: Hector Nuñez MD (11/29/2020 2:46 PM) [facility]
[2020-11-29 15:00] VITALS: BP 113/65
--- NOTE | 2020-11-29 15:55 | PDOC ---
SURGICAL PROGRESS NOTE DATE: 11/29/20 TIME: 15:53 Subjective Pt without c/o, no n/V, denies significant pain Vital Signs Vital Signs Date Time Temp Pulse Resp B/P (MAP) Pulse Ox O2 Delivery O2 Flow Rate FiO2 11/29/20 08:00 Room Air 11/29/20 07:00 98.0 72 18 99/52 (68) 94 98.0 I&O Intake and Output 11/29/20 07:00 Intake Total 1545 ml Balance 1545 ml Intake Oral 120 ml IV Total 525 ml Other 900 ml # Voids 2 General: Alert, Oriented X3, Cooperative, No acute distress Abdomen: Soft, No tenderness Labs Laboratory Tests Test 11/28/20 04:10 11/29/20 02:00 11/29/20 07:00 White Blood Count 12.7 x10^3/uL (4.0-11.0) 9.8 x10^3/uL (4.0-11.0) Red Blood Count 4.73 x10^6/uL (3.50-5.40) 4.12 x10^6/uL (3.50-5.40) Hemoglobin 12.9 g/dL (12.0-15.5) 11.3 g/dL (12.0-15.5) Hematocrit 39.7 % (36.0-47.0) 34.9 % (36.0-47.0) Mean Corpuscular Volume 84 fL (79-100) 85 fL (79-100) Mean Corpuscular Hemoglobin 27 pg (25-35) 27 pg (25-35) Mean Corpuscular Hemoglobin Concent 33 g/dL (31-37) 32 g/dL (31-37) Red Cell Distribution Width 15.4 % (11.5-14.5) 15.5 % (11.5-14.5) Platelet Count 415 x10^3/uL (140-400) 369 x10^3/uL (140-400) Neutrophils (%) (Auto) 80 % (31-73) Lymphocytes (%) (Auto) 12 % (24-48) Monocytes (%) (Auto) 7 % (0-9) Eosinophils (%) (Auto) 1 % (0-3) Basophils (%) (Auto) 0 % (0-3) Neutrophils # (Auto) 10.2 x10^3/uL (1.8-7.7) Lymphocytes # (Auto) 1.6 x10^3/uL (1.0-4.8) Monocytes # (Auto) 0.8 x10^3/uL (0.0-1.1) Eosinophils # (Auto) 0.1 x10^3/uL (0.0-0.7) Basophils # (Auto) 0.0 x10^3/uL (0.0-0.2) Sodium Level 142 mmol/L (136-145) 143 mmol/L (136-145) Potassium Level 3.5 mmol/L (3.5-5.1) 3.5 mmol/L (3.5-5.1) Chloride Level 104 mmol/L (98-107) 109 mmol/L (98-107) Carbon Dioxide Level 25 mmol/L (21-32) 26 mmol/L (21-32) Anion Gap 13 (6-14) 8 (6-14) Blood Urea Nitrogen 11 mg/dL (7-20) 6 mg/dL (7-20) Creatinine 0.8 mg/dL (0.6-1.0) 0.9 mg/dL (0.6-1.0) Estimated GFR (Cockcroft-Gault) 70.5 61.5 BUN/Creatinine Ratio 14 (6-20) 7 (6-20) Glucose Level 124 mg/dL (70-99) 97 mg/dL (70-99) Calcium Level 8.9 mg/dL (8.5-10.1) 8.2 mg/dL (8.5-10.1) Total Bilirubin 0.4 mg/dL (0.2-1.0) 0.3 mg/dL (0.2-1.0) Aspartate Amino Transf (AST/SGOT) 36 U/L (15-37) 24 U/L (15-37) Alanine Aminotransferase (ALT/SGPT) 21 U/L (14-59) 19 U/L (14-59) Alkaline Phosphatase 102 U/L (46-116) 84 U/L (46-116) Total Protein 7.1 g/dL (6.4-8.2) 5.9 g/dL (6.4-8.2) Albumin 3.3 g/dL (3.4-5.0) 2.7 g/dL (3.4-5.0) Albumin/Globulin Ratio 0.9 (1.0-1.7) 0.8 (1.0-1.7) Urine Collection Type Unknown Urine Color Yellow Urine Clarity Clear Urine pH 6.5 (<5.0-8.0) Urine Specific [place] <=1.005 (1.000-1.030) Urine Protein Negative mg/dL (NEG-TRACE) Urine Glucose (UA) Negative mg/dL (NEG) Urine Ketones (Stick) Negative mg/dL (NEG) Urine Blood Negative (NEG) Urine Nitrite Negative (NEG) Urine Bilirubin Negative (NEG) Urine Urobilinogen Dipstick 0.2 mg/dL (0.2 mg/dL) Urine Leukocyte Esterase Trace (NEG) Urine RBC 0 /HPF (0-2) Urine WBC 5-10 /HPF (0-4) Urine Squamous Epithelial Cells Few /LPF Urine Bacteria 0 /HPF (0-FEW) Iron Level 28 ug/dL (50-170) Total Iron Binding Capacity 307 ug/dL (250-450) Iron Saturation 9 % (15-34) Vitamin B12 Level 480 pg/mL (247-911) Laboratory Tests Test 11/29/20 02:00 11/29/20 07:00 Urine Collection Type Unknown Urine Color Yellow Urine Clarity Clear Urine pH 6.5 (<5.0-8.0) Urine Specific [place] <=1.005 (1.000-1.030) Urine Protein Negative mg/dL (NEG-TRACE) Urine Glucose (UA) Negative mg/dL (NEG) Urine Ketones (Stick) Negative mg/dL (NEG) Urine Blood Negative (NEG) Urine Nitrite Negative (NEG) Urine Bilirubin Negative (NEG) Urine Urobilinogen Dipstick 0.2 mg/dL (0.2 mg/dL) Urine Leukocyte Esterase Trace (NEG) Urine RBC 0 /HPF (0-2) Urine WBC 5-10 /HPF (0-4) Urine Squamous Epithelial Cells Few /LPF Urine Bacteria 0 /HPF (0-FEW) White Blood Count 9.8 x10^3/uL (4.0-11.0) Red Blood Count 4.12 x10^6/uL (3.50-5.40) Hemoglobin 11.3 g/dL (12.0-15.5) Hematocrit 34.9 % (36.0-47.0) Mean Corpuscular Volume 85 fL (79-100) Mean Corpuscular Hemoglobin 27 pg (25-35) Mean Corpuscular Hemoglobin Concent 32 g/dL (31-37) Red Cell Distribution Width 15.5 % (11.5-14.5) Platelet Count 369 x10^3/uL (140-400) Sodium Level 143 mmol/L (136-145) Potassium Level 3.5 mmol/L (3.5-5.1) Chloride Level 109 mmol/L (98-107) Carbon Dioxide Level 26 mmol/L (21-32) Anion Gap 8 (6-14) Blood Urea Nitrogen 6 mg/dL (7-20) Creatinine 0.9 mg/dL (0.6-1.0) Estimated GFR (Cockcroft-Gault) 61.5 BUN/Creatinine Ratio 7 (6-20) Glucose Level 97 mg/dL (70-99) Calcium Level 8.2 mg/dL (8.5-10.1) Iron Level 28 ug/dL (50-170) Total Iron Binding Capacity 307 ug/dL (250-450) Iron Saturation 9 % (15-34) Total Bilirubin 0.3 mg/dL (0.2-1.0) Aspartate Amino Transf (AST/SGOT) 24 U/L (15-37) Alanine Aminotransferase (ALT/SGPT) 19 U/L (14-59) Alkaline Phosphatase 84 U/L (46-116) Total Protein 5.9 g/dL (6.4-8.2) Albumin 2.7 g/dL (3.4-5.0) Albumin/Globulin Ratio 0.8 (1.0-1.7) Vitamin B12 Level 480 pg/mL (247-911) I have reviewed the following MRCP with concern for CBD stone Assessment/Plan duodenal abnormals agree with w/u per GI OK to try clears and ADAT and work towards d/c Justicifation of Admission Dx: Justifications for Admission: Justification of Admission Dx: Yes ALANNA DELGADO MD Nov 29, 2020 15:55
[2020-11-29 19:00] VITALS: BP 105/50
[2020-11-29 23:00] VITALS: BP 115/66
[2020-11-30] MEDS: IV NORMAL SALINE 1000ML BAG 1,000 ML IV SCH ×2 (01:37→17:18)
[2020-11-30 03:00] VITALS: BP 119/53
[2020-11-30 07:00] VITALS: BP 125/75
[2020-11-30] MEDS: CIPROFLOXACIN 200MG PREMIX 100 ML IV SCH ×2 (08:47→20:43)
[2020-11-30] MEDS: PANTOPRAZOLE 40 MG TABLET.DR. PO SCH (08:52)
--- NOTE | 2020-11-30 10:08 | PDOC ---
PROGRESS NOTES Date of Service: DATE: 11/30/20 TIME: 10:07 Chief Complaint Chief Complaint Intractable abdominal pain Choledocholithiasis Ct findings with possible distal CBD stone--LFTS normal wall thickening to duodenum--possible doudenitis vs PUD, possible doudenal soft tissue density morbid obesity hx CAD PREDIABETES MAJOR depressive disorder osteoarthritis incontinence, urinary, chronis HX PUD, Duodenal ulcer hyperlipidemia Epilepsy hx COPD PLAN Admit per GI/ Dr. Horowitz - MRCP. NPO, IV PPI for now. iv pain control History of Present Illness History of Present Illness 74 yr old female with complaint of persistent abdominal pain Reports previous EGDs and colonoscopies with hx PUD 11/29/2020: Afebrile. Patient reports improvement in abdominal pain. Plan for MRCP today. Discussed with RN. 11/30/2020: Intractable abdominal pain Choledocholithiasis Ct findings with possible distal CBD stone--LFTS normal wall thickening to duodenum--possible doudenitis vs PUD, possible doudenal soft tissue density morbid obesity hx CAD PREDIABETES MAJOR depressive disorder osteoarthritis incontinence, urinary, chronis Afebrile. improvement in abdominal pain. Plan for MRCP 11-29. Discussed with RN. try clears and ADAT distal CBD s/p cholecystectomy w/ h/o PUD pursue outpt ERCP. Vitals Vitals Vital Signs Date Time Temp Pulse Resp B/P (MAP) Pulse Ox O2 Delivery O2 Flow Rate FiO2 11/30/20 07:00 98.4 78 18 125/75 (92) 93 Room Air 98.4 Physical Exam Physical Exam lying in bed in NAD General: Alert, Oriented X3, Cooperative, No acute distress Heart: Regular rate, Normal S1, Normal S2 Lungs: Clear Abdomen: Normal bowel sounds, Soft, No tenderness Extremities: No cyanosis Skin: No rashes, No breakdown Labs LABS INDICATION: Abdominal pain and weight loss, possible choledocholithiasis on CT exam. TECHNIQUE: Multiplanar multisequence MRI and MRCP abdomen without IV contrast. 3-D coronal heavily T2-weighted MRCP sequence performed. COMPARISON: CT dated 11/27/2020. FINDINGS: Within limitation of noncontrast exam, Normal morphology and size of the liver without focal lesion. No steatosis or deposition. Cholecystectomy. Dilated central intrahepatic and extrahepatic ducts with smooth tapering distally, the maximum diameter of the common bile duct measures 1.2 cm. There is a 5 mm nonobstructing distal choledocholithiasis. Additional, questionable 3 mm filling defect at the ampulla. No splenomegaly. Moderate atrophic pancreatic parenchyma with fat infiltration. Prominent main pancreatic duct at the head with smooth tapering distally, measures 4 mm in maximum diameter. No adrenal nodule. No hydronephrosis. Subcentimeter simple right renal cysts measuring up to 0.9 mm. Unchanged small to moderate size hiatal hernia. Small uncomplicated D2 duodenal diverticulum. Redemonstrated ill-defined 1.4 cm intermediate T2 signal intensity soft tissue within the duodenal bulb (series 9 image 18). No bowel dilation. No lymphadenopathy in the abdomen by size criteria. No ascites. Normal caliber abdominal aorta. No suspicious osseous lesion. Degenerative changes in the spine. Trace bilateral pleural effusions, new since prior exam. IMPRESSION: Within limitation of noncontrast exam, 1. Redemonstrated central intra and extrahepatic biliary ductal dilation with smooth tapering distally. Questionable 3 mm filling defect at the ampulla, may represent an obstructing choledocholithiasis. Additional, 5 mm nonobstructing distal choledocholithiasis identified. 2. Redemonstrated ill-defined 1.4 cm soft tissue within the duodenal bulb, differential again includes prominent fold versus neoplasm. Recommend correlation with upper GI endoscopy. 3. New trace bilateral pleural effusions. Electronically signed by: Hector Nuñez MD (11/29/2020 2:46 PM) [facility] DICTATED and SIGNED BY: HECTOR NUÑEZ MD DATE: 11/29/20 [id number] 0 Comment Review of Relevant I have reviewed the following items anurag (where applicable) has been applied. Labs Laboratory Tests Test 11/29/20 02:00 11/29/20 07:00 Urine Collection Type Unknown Urine Color Yellow Urine Clarity Clear Urine pH 6.5 (<5.0-8.0) Urine Specific [place] <=1.005 (1.000-1.030) Urine Protein Negative mg/dL (NEG-TRACE) Urine Glucose (UA) Negative mg/dL (NEG) Urine Ketones (Stick) Negative mg/dL (NEG) Urine Blood Negative (NEG) Urine Nitrite Negative (NEG) Urine Bilirubin Negative (NEG) Urine Urobilinogen Dipstick 0.2 mg/dL (0.2 mg/dL) Urine Leukocyte Esterase Trace (NEG) Urine RBC 0 /HPF (0-2) Urine WBC 5-10 /HPF (0-4) Urine Squamous Epithelial Cells Few /LPF Urine Bacteria 0 /HPF (0-FEW) White Blood Count 9.8 x10^3/uL (4.0-11.0) Red Blood Count 4.12 x10^6/uL (3.50-5.40) Hemoglobin 11.3 g/dL (12.0-15.5) Hematocrit 34.9 % (36.0-47.0) Mean Corpuscular Volume 85 fL (79-100) Mean Corpuscular Hemoglobin 27 pg (25-35) Mean Corpuscular Hemoglobin Concent 32 g/dL (31-37) Red Cell Distribution Width 15.5 % (11.5-14.5) Platelet Count 369 x10^3/uL (140-400) Sodium Level 143 mmol/L (136-145) Potassium Level 3.5 mmol/L (3.5-5.1) Chloride Level 109 mmol/L (98-107) Carbon Dioxide Level 26 mmol/L (21-32) Anion Gap 8 (6-14) Blood Urea Nitrogen 6 mg/dL (7-20) Creatinine 0.9 mg/dL (0.6-1.0) Estimated GFR (Cockcroft-Gault) 61.5 BUN/Creatinine Ratio 7 (6-20) Glucose Level 97 mg/dL (70-99) Calcium Level 8.2 mg/dL (8.5-10.1) Iron Level 28 ug/dL (50-170) Total Iron Binding Capacity 307 ug/dL (250-450) Iron Saturation 9 % (15-34) Total Bilirubin 0.3 mg/dL (0.2-1.0) Aspartate Amino Transf (AST/SGOT) 24 U/L (15-37) Alanine Aminotransferase (ALT/SGPT) 19 U/L (14-59) Alkaline Phosphatase 84 U/L (46-116) Total Protein 5.9 g/dL (6.4-8.2) Albumin 2.7 g/dL (3.4-5.0) Albumin/Globulin Ratio 0.8 (1.0-1.7) Vitamin B12 Level 480 pg/mL (247-911) Microbiology 11/29/20 Urine Culture - Final, Complete Medications Current Medications Sodium Chloride 1,000 ml @ 75 mls/hr [id number] IV Last administered on 11/30/20 01:37; Start 11/27/20 at 22:45 Metronidazole 100 ml @ 100 mls/hr Q12HR IV Last administered on 11/30/20 08:49; Start 11/27/20 at 23:00 Ciprofloxacin/ Dextrose 100 ml @ 100 mls/hr Q12HR IV Last administered on 11/30/20at 08:47; Start 11/27/20 at 23:00 Morphine Sulfate (Morphine Sulfate) 2 mg PRN Q3HRS PRN IV PAIN Last administered on 11/29/20 07:43; Start 11/27/20 at 22:45 Ondansetron HCl (Zofran) 4 mg PRN Q4HRS PRN IVP NAUSEA/VOMITING Last administered on 11/29/20 07:43; Start 11/27/20 at 22:45 Pantoprazole Sodium (PROTONIX VIAL for IV PUSH) 40 mg DAILYAC IVP Last administered on 11/29/20 07:43; Start 11/28/20 at 10:00; Stop 11/29/20 at 15:15; Status DC Pantoprazole Sodium (Protonix) 40 mg DAILYAC PO Last administered on 11/30/20at 08:52; Start 11/30/20 at 07:30 Active Scripts Active Reported Proair Respiclick (Albuterol Sulfate) 90 Mcg Aer.pow.ba 2 Puff IH PRN Q4-6HRS PRN Flonase Allergy Relief (Fluticasone Propionate) 9.9 Ml Welch.susp 2 Sprays NS DAILY Lisinopril 2.5 Mg Tablet 1 Tab PO DAILY Carvedilol 25 Mg Tablet 3.125 Mg PO BIDWMEALS Pravastatin Sodium 40 Mg Tablet 1 Tab PO QHS Seroquel (Quetiapine Fumarate) 50 Mg Tablet 50 Mg PO HS Famotidine 40 Mg Tablet 40 Mg PO HS Voltaren Arthritis Pain (Diclofenac Sodium) 20 Gm Gel..gram. 20 Gm TP QID Sucralfate 1 Gm Tablet 1 Tab PO QID Singulair Tablet (Montelukast Sodium) 10 Mg Tablet 10 Mg PO HS Levetiracetam 500 Mg Tablet 1 Tab PO BID Cymbalta (Duloxetine Hcl) 60 Mg Capsule.dr 1 Cap PO BID Zyrtec (Cetirizine Hcl) 10 Mg Tablet 1 Tab PO DAILY Zofran (Ondansetron Hcl) 4 Mg Tablet 1 Tab PO Q6HRS Trazodone Hcl 50 Mg Tablet 1 Tab PO QHS Vitals/I & O Vital Sign - Last 24 Hours 11/29/20 11/29/20 11/29/20 11/29/20 15:00 19:00 19:30 23:00 Temp 98.0 98.3 98.0 98.0 98.3 98.0 Pulse 77 75 74 Resp 18 18 18 B/P (MAP) 113/65 (81) 105/50 (68) 115/66 (82) Pulse Ox 93 94 95 O2 Delivery Room Air Room Air Room Air Room Air 11/30/20 11/30/20 03:00 07:00 Temp 97.6 98.4 97.6 98.4 Pulse 74 78 Resp 18 18 B/P (MAP) 119/53 (75) 125/75 (92) Pulse Ox 94 93 O2 Delivery Room Air Room Air Intake and Output 11/29/20 11/29/20 11/30/20 15:00 23:00 07:00 Intake Total 780 ml Balance 780 ml Justicifation of Admission Dx: Justifications for Admission: Justification of Admission Dx: Yes KHAI CARTER MD Nov 30, 2020 10:07
[2020-11-30 11:00] VITALS: BP 130/91
--- NOTE | 2020-11-30 11:14 | PDOC ---
SURGICAL PROGRESS NOTE DATE: 11/30/20 TIME: 11:13 Subjective Pt without c/o, sol diet Vital Signs Vital Signs Date Time Temp Pulse Resp B/P (MAP) Pulse Ox O2 Delivery O2 Flow Rate FiO2 11/30/20 07:00 98.4 78 18 125/75 (92) 93 Room Air 98.4 I&O Intake and Output 11/30/20 07:00 Intake Total 780 ml Balance 780 ml Intake Oral 780 ml # Voids 5 General: Alert, Oriented X3, Cooperative, No acute distress Abdomen: Soft, No tenderness Labs Laboratory Tests Test 11/29/20 02:00 11/29/20 07:00 Urine Collection Type Unknown Urine Color Yellow Urine Clarity Clear Urine pH 6.5 (<5.0-8.0) Urine Specific [place] <=1.005 (1.000-1.030) Urine Protein Negative mg/dL (NEG-TRACE) Urine Glucose (UA) Negative mg/dL (NEG) Urine Ketones (Stick) Negative mg/dL (NEG) Urine Blood Negative (NEG) Urine Nitrite Negative (NEG) Urine Bilirubin Negative (NEG) Urine Urobilinogen Dipstick 0.2 mg/dL (0.2 mg/dL) Urine Leukocyte Esterase Trace (NEG) Urine RBC 0 /HPF (0-2) Urine WBC 5-10 /HPF (0-4) Urine Squamous Epithelial Cells Few /LPF Urine Bacteria 0 /HPF (0-FEW) White Blood Count 9.8 x10^3/uL (4.0-11.0) Red Blood Count 4.12 x10^6/uL (3.50-5.40) Hemoglobin 11.3 g/dL (12.0-15.5) Hematocrit 34.9 % (36.0-47.0) Mean Corpuscular Volume 85 fL (79-100) Mean Corpuscular Hemoglobin 27 pg (25-35) Mean Corpuscular Hemoglobin Concent 32 g/dL (31-37) Red Cell Distribution Width 15.5 % (11.5-14.5) Platelet Count 369 x10^3/uL (140-400) Sodium Level 143 mmol/L (136-145) Potassium Level 3.5 mmol/L (3.5-5.1) Chloride Level 109 mmol/L (98-107) Carbon Dioxide Level 26 mmol/L (21-32) Anion Gap 8 (6-14) Blood Urea Nitrogen 6 mg/dL (7-20) Creatinine 0.9 mg/dL (0.6-1.0) Estimated GFR (Cockcroft-Gault) 61.5 BUN/Creatinine Ratio 7 (6-20) Glucose Level 97 mg/dL (70-99) Calcium Level 8.2 mg/dL (8.5-10.1) Iron Level 28 ug/dL (50-170) Total Iron Binding Capacity 307 ug/dL (250-450) Iron Saturation 9 % (15-34) Total Bilirubin 0.3 mg/dL (0.2-1.0) Aspartate Amino Transf (AST/SGOT) 24 U/L (15-37) Alanine Aminotransferase (ALT/SGPT) 19 U/L (14-59) Alkaline Phosphatase 84 U/L (46-116) Total Protein 5.9 g/dL (6.4-8.2) Albumin 2.7 g/dL (3.4-5.0) Albumin/Globulin Ratio 0.8 (1.0-1.7) Vitamin B12 Level 480 pg/mL (247-911) Assessment/Plan CBD stone, duodenal abnormality agree with ADAT and work towards d/c agree with GI plans for endoscopy and ERCP electively Justicifation of Admission Dx: Justifications for Admission: Justification of Admission Dx: Yes ALANNA DELGADO MD Nov 30, 2020 11:14
[2020-11-30] MEDS ORDERED: NON FORMULARY ITEM (Albuterol Sulfate (Proair Respiclick) 2 PUFF) IH PRN (13:45)
[2020-11-30] MEDS ORDERED: ONDANSETRON ODT 4 MG TAB.RAPDIS. PO PRN (14:00)
[2020-11-30] MEDS ORDERED: ALBUTEROL SULFATE 2.5 MG/3 ML NEBU. NEB PRN (14:00)
[2020-11-30] MEDS: CETIRIZINE HCL 10 MG TABLET. PO SCH (14:55)
[2020-11-30] MEDS: levETIRAcetam 500 MG TABLET PO SCH ×2 (14:55→20:44)
[2020-11-30] MEDS: DULoxetine HCL 30 MG CAPSULE.DR PO SCH ×2 (14:55→20:44)
[2020-11-30] MEDS: LISINOPRIL 5 MG TABLET. PO SCH (14:56)
[2020-11-30 15:00] VITALS: BP 126/66
[2020-11-30] MEDS: DICLOFENAC SODIUM 1% TOPICAL GEL 100GM TUBE. TP SCH ×2 (17:00→20:45)
[2020-11-30] MEDS: CARVEDILOL 3.125 MG TABLET. PO SCH (17:14)
[2020-11-30] MEDS: SUCRALFATE 1 GM TABLET. PO SCH ×2 (17:19→21:59)
[2020-11-30 19:00] VITALS: BP 109/59
[2020-11-30] MEDS: MONTELUKAST SODIUM 10 MG TABLET. PO SCH (20:43)
[2020-11-30] MEDS: ATORVASTATIN CALCIUM 10 MG TABLET. PO SCH (20:44)
[2020-11-30] MEDS: QUEtiapine 25 MG TABLET. PO SCH (20:44)
[2020-11-30] MEDS: FAMOTIDINE 20 MG TABLET. PO SCH (20:44)
[2020-11-30] MEDS: traZODone 50 MG TABLET. PO SCH (20:44)
[2020-11-30 23:00] VITALS: BP 119/61
[2020-12-01 03:00] VITALS: BP 96/48
[2020-12-01] MEDS: IV NORMAL SALINE 1000ML BAG 1,000 ML IV SCH ×2 (06:24→21:09)
[2020-12-01 07:00] VITALS: BP 94/52
[2020-12-01 07:07] LABS: BASO % 0 % (0-3); EOS # 0.1 x10^3/uL (0.0-0.7); EOS % 2 % (0-3); HEMATOCRIT 31.7 % (36.0-47.0); HEMOGLOBIN 10.4 g/dL (12.0-15.5); LYMPH # 1.9 x10^3/uL (1.0-4.8); LYMPH % 26 % (24-48); MEAN CORPUSCULAR HEMOGLOBIN 28 pg (25-35); MEAN CORPUSCULAR HGB CONC 33 g/dL (31-37); MEAN CORPUSCULAR VOLUME 85 fL (79-100); MONO # 0.8 x10^3/uL (0.0-1.1); MONO % 10 % (0-9); NEUT # 4.6 x10^3/uL (1.8-7.7); NEUT % 62 % (31-73); PLATELET COUNT 317 x10^3/uL (140-400); RED BLOOD COUNT 3.75 x10^6/uL (3.50-5.40); RED CELL DISTRIBUTION WIDTH 15.7 % (11.5-14.5); WHITE BLOOD COUNT 7.5 x10^3/uL (4.0-11.0)
[2020-12-01 07:23] LABS: ALBUMIN 2.4 g/dL (3.4-5.0); ALBUMIN/GLOBULIN RATIO 0.8 (1.0-1.7); CALCIUM 7.7 mg/dL (8.5-10.1); CREATININE 0.9 mg/dL (0.6-1.0); GFR 61.4; POTASSIUM 3.2 mmol/L (3.5-5.1); TOTAL BILIRUBIN 0.3 mg/dL (0.2-1.0); TOTAL PROTEIN 5.3 g/dL (6.4-8.2)
[2020-12-01] MEDS: LISINOPRIL 5 MG TABLET. PO SCH (09:00)
[2020-12-01] MEDS: CETIRIZINE HCL 10 MG TABLET. PO SCH (09:46)
[2020-12-01] MEDS: PANTOPRAZOLE 40 MG TABLET.DR. PO SCH (09:46)
[2020-12-01] MEDS: levETIRAcetam 500 MG TABLET PO SCH ×2 (09:46→21:06)
[2020-12-01] MEDS: CARVEDILOL 3.125 MG TABLET. PO SCH ×2 (09:46→16:08)
[2020-12-01] MEDS: DULoxetine HCL 30 MG CAPSULE.DR PO SCH ×2 (09:46→21:06)
[2020-12-01] MEDS: FLUTICASONE 50MCG/NASAL SPRAY 16GM BOTTLE. NS SCH (09:47)
[2020-12-01] MEDS: DICLOFENAC SODIUM 1% TOPICAL GEL 100GM TUBE. TP SCH ×4 (09:47→21:06)
[2020-12-01] MEDS: CIPROFLOXACIN 200MG PREMIX 100 ML IV SCH ×2 (09:48→21:05)
[2020-12-01] MEDS: SUCRALFATE 1 GM TABLET. PO SCH ×4 (09:49→21:06)
--- NOTE | 2020-12-01 09:50 | NUR ---
Patient insisting on RN to leave medications for this morning at bedside. Patient states she will work on medications.
--- NOTE | 2020-12-01 10:07 | PDOC ---
RAQUEL SAMANIEGO DIRECTOR INTERNAL COMMUNICATIONS 12/01/20 1007: SURGICAL PROGRESS NOTE DATE: 12/01/20 TIME: 10:07 Subjective sleeping during rounds supportive care Vital Signs Vital Signs Date Time Temp Pulse Resp B/P (MAP) Pulse Ox O2 Delivery O2 Flow Rate FiO2 12/01/20 09:46 71 94/52 12/01/20 07:00 97.9 18 95 Room Air 97.9 I&O Intake and Output 12/01/20 06:59 Intake Total 100 ml Balance 100 ml IV Total 100 ml # Voids 4 # Bowel Movements 1 Labs Laboratory Tests Test 12/01/20 06:25 White Blood Count 7.5 x10^3/uL (4.0-11.0) Red Blood Count 3.75 x10^6/uL (3.50-5.40) Hemoglobin 10.4 g/dL (12.0-15.5) Hematocrit 31.7 % (36.0-47.0) Mean Corpuscular Volume 85 fL (79-100) Mean Corpuscular Hemoglobin 28 pg (25-35) Mean Corpuscular Hemoglobin Concent 33 g/dL (31-37) Red Cell Distribution Width 15.7 % (11.5-14.5) Platelet Count 317 x10^3/uL (140-400) Neutrophils (%) (Auto) 62 % (31-73) Lymphocytes (%) (Auto) 26 % (24-48) Monocytes (%) (Auto) 10 % (0-9) Eosinophils (%) (Auto) 2 % (0-3) Basophils (%) (Auto) 0 % (0-3) Neutrophils # (Auto) 4.6 x10^3/uL (1.8-7.7) Lymphocytes # (Auto) 1.9 x10^3/uL (1.0-4.8) Monocytes # (Auto) 0.8 x10^3/uL (0.0-1.1) Eosinophils # (Auto) 0.1 x10^3/uL (0.0-0.7) Basophils # (Auto) 0.0 x10^3/uL (0.0-0.2) Sodium Level 148 mmol/L (136-145) Potassium Level 3.2 mmol/L (3.5-5.1) Chloride Level 114 mmol/L (98-107) Carbon Dioxide Level 26 mmol/L (21-32) Anion Gap 8 (6-14) Blood Urea Nitrogen 4 mg/dL (7-20) Creatinine 0.9 mg/dL (0.6-1.0) Estimated GFR (Cockcroft-Gault) 61.4 BUN/Creatinine Ratio 4 (6-20) Glucose Level 85 mg/dL (70-99) Calcium Level 7.7 mg/dL (8.5-10.1) Total Bilirubin 0.3 mg/dL (0.2-1.0) Aspartate Amino Transf (AST/SGOT) 14 U/L (15-37) Alanine Aminotransferase (ALT/SGPT) 12 U/L (14-59) Alkaline Phosphatase 70 U/L (46-116) Total Protein 5.3 g/dL (6.4-8.2) Albumin 2.4 g/dL (3.4-5.0) Albumin/Globulin Ratio 0.8 (1.0-1.7) Laboratory Tests Test 12/01/20 06:25 White Blood Count 7.5 x10^3/uL (4.0-11.0) Red Blood Count 3.75 x10^6/uL (3.50-5.40) Hemoglobin 10.4 g/dL (12.0-15.5) Hematocrit 31.7 % (36.0-47.0) Mean Corpuscular Volume 85 fL (79-100) Mean Corpuscular Hemoglobin 28 pg (25-35) Mean Corpuscular Hemoglobin Concent 33 g/dL (31-37) Red Cell Distribution Width 15.7 % (11.5-14.5) Platelet Count 317 x10^3/uL (140-400) Neutrophils (%) (Auto) 62 % (31-73) Lymphocytes (%) (Auto) 26 % (24-48) Monocytes (%) (Auto) 10 % (0-9) Eosinophils (%) (Auto) 2 % (0-3) Basophils (%) (Auto) 0 % (0-3) Neutrophils # (Auto) 4.6 x10^3/uL (1.8-7.7) Lymphocytes # (Auto) 1.9 x10^3/uL (1.0-4.8) Monocytes # (Auto) 0.8 x10^3/uL (0.0-1.1) Eosinophils # (Auto) 0.1 x10^3/uL (0.0-0.7) Basophils # (Auto) 0.0 x10^3/uL (0.0-0.2) Sodium Level 148 mmol/L (136-145) Potassium Level 3.2 mmol/L (3.5-5.1) Chloride Level 114 mmol/L (98-107) Carbon Dioxide Level 26 mmol/L (21-32) Anion Gap 8 (6-14) Blood Urea Nitrogen 4 mg/dL (7-20) Creatinine 0.9 mg/dL (0.6-1.0) Estimated GFR (Cockcroft-Gault) 61.4 BUN/Creatinine Ratio 4 (6-20) Glucose Level 85 mg/dL (70-99) Calcium Level 7.7 mg/dL (8.5-10.1) Total Bilirubin 0.3 mg/dL (0.2-1.0) Aspartate Amino Transf (AST/SGOT) 14 U/L (15-37) Alanine Aminotransferase (ALT/SGPT) 12 U/L (14-59) Alkaline Phosphatase 70 U/L (46-116) Total Protein 5.3 g/dL (6.4-8.2) Albumin 2.4 g/dL (3.4-5.0) Albumin/Globulin Ratio 0.8 (1.0-1.7) Justicifation of Admission Dx: Justifications for Admission: Justification of Admission Dx: Yes ALANNA DELGADO MD 12/01/20 1902: RAQUEL SAMANIEGO APRN Dec 01, 2020 10:07 ALANNA DELGADO MD Dec 01, 2020 19:02
--- NOTE | 2020-12-01 10:58 | PDOC ---
PROGRESS NOTES Date of Service: DATE: 12/01/20 TIME: 10:58 Chief Complaint Chief Complaint IMPRESSION Intractable abdominal pain Choledocholithiasis Ct findings with possible distal CBD stone--LFTS normal wall thickening to duodenum--possible doudenitis vs PUD, possible doudenal soft tissue density morbid obesity hx CAD PREDIABETES MAJOR depressive disorder osteoarthritis incontinence, urinary, chronis HX PUD, Duodenal ulcer hyperlipidemia Epilepsy hx COPD PLAN Admit per GI/ Dr. Horowitz - MRCP. ADAT , IV PPI for now. iv pain control work towards d/c GI plans for endoscopy and ERCP electively 12-01 Intractable abdominal pain, IMPROVED Choledocholithiasis Ct findings with possible distal CBD stone--LFTS normal wall thickening to duodenum--possible doudenitis vs PUD, possible doudenal soft tissue density morbid obesity hx CAD PREDIABETES MAJOR depressive disorder osteoarthritis incontinence, urinary, chronis HX PUD, Duodenal ulcer hyperlipidemia LESS PAIN Advance diet to full liquids D/W RN History of Present Illness History of Present Illness 74 yr old female with complaint of persistent abdominal pain Reports previous EGDs and colonoscopies with hx PUD 11/29/2020: Afebrile. Patient reports improvement in abdominal pain. Plan for MRCP today. Discussed with RN. 11/30/2020: Intractable abdominal pain Choledocholithiasis Ct findings with possible distal CBD stone--LFTS normal wall thickening to duodenum--possible doudenitis vs PUD, possible doudenal soft tissue density morbid obesity hx CAD PREDIABETES MAJOR depressive disorder osteoarthritis incontinence, urinary, chronis Afebrile. improvement in abdominal pain. Plan for MRCP 11-29. Discussed with RN. try clears and ADAT distal CBD s/p cholecystectomy w/ h/o PUD pursue outpt ERCP. 12-01 Intractable abdominal pain, IMPROVED Choledocholithiasis Ct findings with possible distal CBD stone--LFTS normal wall thickening to duodenum--possible doudenitis vs PUD, possible doudenal soft tissue density morbid obesity hx CAD PREDIABETES MAJOR depressive disorder osteoarthritis incontinence, urinary, chronis HX PUD, Duodenal ulcer hyperlipidemia LESS PAIN Advance diet to full liquids D/W RN Vitals Vitals Vital Signs Date Time Temp Pulse Resp B/P (MAP) Pulse Ox O2 Delivery O2 Flow Rate FiO2 12/01/20 09:46 71 94/52 12/01/20 07:00 97.9 18 95 Room Air 97.9 Physical Exam Physical Exam lying in bed in NAD General: Alert, Oriented X3, Cooperative, No acute distress Heart: Regular rate, Normal S1, Normal S2 Lungs: Clear Abdomen: Normal bowel sounds, Soft, No tenderness, No masses Extremities: No cyanosis Skin: No rashes, No breakdown Labs LABS PATIENT: JAMAR TAVARES ACCOUNT: [id number] : 1945 LOCATION: [address] [place] [address] AGE: 74 SEX: F EXAM STATUS: ADM IN ORD. PHYSICIAN: MELONIE CASTANO REASON: abd pain, weight loss, possible choledocholithiasis on CT PROCEDURE: MRCP WO CONTRAST EXAMINATION: MRI and MRCP abdomen without IV contrast. INDICATION: Abdominal pain and weight loss, possible choledocholithiasis on CT exam. TECHNIQUE: Multiplanar multisequence MRI and MRCP abdomen without IV contrast. 3-D coronal heavily T2-weighted MRCP sequence performed. COMPARISON: CT dated 11/27/2020. FINDINGS: Within limitation of noncontrast exam, Normal morphology and size of the liver without focal lesion. No steatosis or deposition. Cholecystectomy. Dilated central intrahepatic and extrahepatic ducts with smooth tapering distally, the maximum diameter of the common bile duct measures 1.2 cm. There is a 5 mm nonobstructing distal choledocholithiasis. Additional, questionable 3 mm filling defect at the ampulla. No splenomegaly. Moderate atrophic pancreatic parenchyma with fat infiltration. Prominent main pancreatic duct at the head with smooth tapering distally, measures 4 mm in maximum diameter. No adrenal nodule. No hydronephrosis. Subcentimeter simple right renal cysts measuring up to 0.9 mm. Unchanged small to moderate size hiatal hernia. Small uncomplicated D2 duodenal diverticulum. Redemonstrated ill-defined 1.4 cm intermediate T2 signal intensity soft tissue within the duodenal bulb (series 9 image 18). No bowel dilation. No lymphadenopathy in the abdomen by size criteria. No ascites. Normal caliber abdominal aorta. No suspicious osseous lesion. Degenerative changes in the spine. Trace bilateral pleural effusions, new since prior exam. IMPRESSION: Within limitation of noncontrast exam, 1. Redemonstrated central intra and extrahepatic biliary ductal dilation with smooth tapering distally. Questionable 3 mm filling defect at the ampulla, may represent an obstructing choledocholithiasis. Additional, 5 mm nonobstructing distal choledocholithiasis identified. 2. Redemonstrated ill-defined 1.4 cm soft tissue within the duodenal bulb, differential again includes prominent fold versus neoplasm. Recommend correlation with upper GI endoscopy. 3. New trace bilateral pleural effusions. Electronically signed by: Kamaljit Nuñez MD (11/29/2020 2:46 PM) [facility] DICTATED and SIGNED BY: KAMALJIT NUÑEZ MD DATE: 11/29/20 [id number] Laboratory Tests Test 12/01/20 06:25 White Blood Count 7.5 x10^3/uL (4.0-11.0) Red Blood Count 3.75 x10^6/uL (3.50-5.40) Hemoglobin 10.4 g/dL (12.0-15.5) Hematocrit 31.7 % (36.0-47.0) Mean Corpuscular Volume 85 fL (79-100) Mean Corpuscular Hemoglobin 28 pg (25-35) Mean Corpuscular Hemoglobin Concent 33 g/dL (31-37) Red Cell Distribution Width 15.7 % (11.5-14.5) Platelet Count 317 x10^3/uL (140-400) Neutrophils (%) (Auto) 62 % (31-73) Lymphocytes (%) (Auto) 26 % (24-48) Monocytes (%) (Auto) 10 % (0-9) Eosinophils (%) (Auto) 2 % (0-3) Basophils (%) (Auto) 0 % (0-3) Neutrophils # (Auto) 4.6 x10^3/uL (1.8-7.7) Lymphocytes # (Auto) 1.9 x10^3/uL (1.0-4.8) Monocytes # (Auto) 0.8 x10^3/uL (0.0-1.1) Eosinophils # (Auto) 0.1 x10^3/uL (0.0-0.7) Basophils # (Auto) 0.0 x10^3/uL (0.0-0.2) Sodium Level 148 mmol/L (136-145) Potassium Level 3.2 mmol/L (3.5-5.1) Chloride Level 114 mmol/L (98-107) Carbon Dioxide Level 26 mmol/L (21-32) Anion Gap 8 (6-14) Blood Urea Nitrogen 4 mg/dL (7-20) Creatinine 0.9 mg/dL (0.6-1.0) Estimated GFR (Cockcroft-Gault) 61.4 BUN/Creatinine Ratio 4 (6-20) Glucose Level 85 mg/dL (70-99) Calcium Level 7.7 mg/dL (8.5-10.1) Total Bilirubin 0.3 mg/dL (0.2-1.0) Aspartate Amino Transf (AST/SGOT) 14 U/L (15-37) Alanine Aminotransferase (ALT/SGPT) 12 U/L (14-59) Alkaline Phosphatase 70 U/L (46-116) Total Protein 5.3 g/dL (6.4-8.2) Albumin 2.4 g/dL (3.4-5.0) Albumin/Globulin Ratio 0.8 (1.0-1.7) Comment Review of Relevant I have reviewed the following items anurag (where applicable) has been applied. Labs Laboratory Tests Test 12/01/20 06:25 White Blood Count 7.5 x10^3/uL (4.0-11.0) Red Blood Count 3.75 x10^6/uL (3.50-5.40) Hemoglobin 10.4 g/dL (12.0-15.5) Hematocrit 31.7 % (36.0-47.0) Mean Corpuscular Volume 85 fL (79-100) Mean Corpuscular Hemoglobin 28 pg (25-35) Mean Corpuscular Hemoglobin Concent 33 g/dL (31-37) Red Cell Distribution Width 15.7 % (11.5-14.5) Platelet Count 317 x10^3/uL (140-400) Neutrophils (%) (Auto) 62 % (31-73) Lymphocytes (%) (Auto) 26 % (24-48) Monocytes (%) (Auto) 10 % (0-9) Eosinophils (%) (Auto) 2 % (0-3) Basophils (%) (Auto) 0 % (0-3) Neutrophils # (Auto) 4.6 x10^3/uL (1.8-7.7) Lymphocytes # (Auto) 1.9 x10^3/uL (1.0-4.8) Monocytes # (Auto) 0.8 x10^3/uL (0.0-1.1) Eosinophils # (Auto) 0.1 x10^3/uL (0.0-0.7) Basophils # (Auto) 0.0 x10^3/uL (0.0-0.2) Sodium Level 148 mmol/L (136-145) Potassium Level 3.2 mmol/L (3.5-5.1) Chloride Level 114 mmol/L (98-107) Carbon Dioxide Level 26 mmol/L (21-32) Anion Gap 8 (6-14) Blood Urea Nitrogen 4 mg/dL (7-20) Creatinine 0.9 mg/dL (0.6-1.0) Estimated GFR (Cockcroft-Gault) 61.4 BUN/Creatinine Ratio 4 (6-20) Glucose Level 85 mg/dL (70-99) Calcium Level 7.7 mg/dL (8.5-10.1) Total Bilirubin 0.3 mg/dL (0.2-1.0) Aspartate Amino Transf (AST/SGOT) 14 U/L (15-37) Alanine Aminotransferase (ALT/SGPT) 12 U/L (14-59) Alkaline Phosphatase 70 U/L (46-116) Total Protein 5.3 g/dL (6.4-8.2) Albumin 2.4 g/dL (3.4-5.0) Albumin/Globulin Ratio 0.8 (1.0-1.7) Laboratory Tests Test 12/01/20 06:25 White Blood Count 7.5 x10^3/uL (4.0-11.0) Red Blood Count 3.75 x10^6/uL (3.50-5.40) Hemoglobin 10.4 g/dL (12.0-15.5) Hematocrit 31.7 % (36.0-47.0) Mean Corpuscular Volume 85 fL (79-100) Mean Corpuscular Hemoglobin 28 pg (25-35) Mean Corpuscular Hemoglobin Concent 33 g/dL (31-37) Red Cell Distribution Width 15.7 % (11.5-14.5) Platelet Count 317 x10^3/uL (140-400) Neutrophils (%) (Auto) 62 % (31-73) Lymphocytes (%) (Auto) 26 % (24-48) Monocytes (%) (Auto) 10 % (0-9) Eosinophils (%) (Auto) 2 % (0-3) Basophils (%) (Auto) 0 % (0-3) Neutrophils # (Auto) 4.6 x10^3/uL (1.8-7.7) Lymphocytes # (Auto) 1.9 x10^3/uL (1.0-4.8) Monocytes # (Auto) 0.8 x10^3/uL (0.0-1.1) Eosinophils # (Auto) 0.1 x10^3/uL (0.0-0.7) Basophils # (Auto) 0.0 x10^3/uL (0.0-0.2) Sodium Level 148 mmol/L (136-145) Potassium Level 3.2 mmol/L (3.5-5.1) Chloride Level 114 mmol/L (98-107) Carbon Dioxide Level 26 mmol/L (21-32) Anion Gap 8 (6-14) Blood Urea Nitrogen 4 mg/dL (7-20) Creatinine 0.9 mg/dL (0.6-1.0) Estimated GFR (Cockcroft-Gault) 61.4 BUN/Creatinine Ratio 4 (6-20) Glucose Level 85 mg/dL (70-99) Calcium Level 7.7 mg/dL (8.5-10.1) Total Bilirubin 0.3 mg/dL (0.2-1.0) Aspartate Amino Transf (AST/SGOT) 14 U/L (15-37) Alanine Aminotransferase (ALT/SGPT) 12 U/L (14-59) Alkaline Phosphatase 70 U/L (46-116) Total Protein 5.3 g/dL (6.4-8.2) Albumin 2.4 g/dL (3.4-5.0) Albumin/Globulin Ratio 0.8 (1.0-1.7) Microbiology 11/29/20 Urine Culture - Final, Complete Medications Current Medications Sodium Chloride 1,000 ml @ 75 mls/hr [id number] IV Last administered on 12/01/20 06:24; Start 11/27/20 at 22:45 Metronidazole 100 ml @ 100 mls/hr Q12HR IV Last administered on 12/01/20 09:48; Start 11/27/20 at 23:00 Ciprofloxacin/ Dextrose 100 ml @ 100 mls/hr Q12HR IV Last administered on 12/01/20 09:48; Start 11/27/20 at 23:00 Morphine Sulfate (Morphine Sulfate) 2 mg PRN Q3HRS PRN IV PAIN Last administered on 11/29/20 07:43; Start 11/27/20 at 22:45 Ondansetron HCl (Zofran) 4 mg PRN Q4HRS PRN IVP NAUSEA/VOMITING Last administered on 11/29/20 07:43; Start 11/27/20 at 22:45 Pantoprazole Sodium (PROTONIX VIAL for IV PUSH) 40 mg DAILYAC IVP Last administered on 11/29/20 07:43; Start 11/28/20 at 10:00; Stop 11/29/20 at 15:15; Status DC Pantoprazole Sodium (Protonix) 40 mg DAILYAC PO Last administered on 12/01/20 09:46; Start 11/30/20 at 07:30 Cetirizine HCl (ZyrTEC) 10 mg DAILY PO Last administered on 12/01/20 09:46; Start 11/30/20 at 14:00 Diclofenac Sodium (Voltaren) 1 jennifer QID TP Last administered on 12/01/20 09:47; Start 11/30/20 at 17:00 Levetiracetam (Keppra) 500 mg BID PO Last administered on 12/01/20 09:46; Start 11/30/20 at 14:00 Montelukast Sodium (Singulair) 10 mg HS PO Last administered on 11/30/20 20:43; Start 11/30/20 at 21:00 Sucralfate (Carafate) 1 gm QIDPMEDS PO Last administered on 11/30/20 21:59; Start 11/30/20 at 18:00 Trazodone HCl (Desyrel) 50 mg QHS PO Last administered on 6/26/21at 20:44; Start 11/30/20 at 21:00 Non-Formulary Medication (Albuterol Sulfate (Proair Respiclick)) 2 puff PRN Q4- 6HRS PRN IH shortness of breath; Start 11/30/20 at 13:45; Status UNV Carvedilol (Coreg) 3.125 mg BIDWMEALS PO Last administered on 12/01/20 09:46; Start 11/30/20 at 17:00 Duloxetine HCl (Cymbalta) 60 mg BID PO Last administered on 12/01/20 09:46; Start 11/30/20 at 14:00 Famotidine (Pepcid) 40 mg HS PO Last administered on 11/30/20at 20:44; Start 11/30/20 at 21:00 Fluticasone Propionate (Flonase) 2 spray DAILY NS Last administered on 12/01/20 09:47; Start 12/01/20 at 09:00 Lisinopril (Prinivil) 2.5 mg DAILY PO Last administered on 11/30/20at 14:56; Start 11/30/20 at 14:00 Ondansetron HCl (Zofran Odt) 4 mg Q6HRS PRN PO NAUSEA/VOMITING; Start 11/30/20 at 14:00 Atorvastatin Calcium (Lipitor) 10 mg QHS PO Last administered on 11/30/20at 20:44; Start 11/30/20 at 21:00 Quetiapine Fumarate (SEROquel) 50 mg HS PO Last administered on 11/30/20at 20:44; Start 11/30/20 at 21:00 Albuterol Sulfate (Ventolin Neb Soln) 2.5 mg PRN Q4HRS PRN NEB SHORTNESS OF BREATH; Start 11/30/20 at 14:00 Active Scripts Active Reported Proair Respiclick (Albuterol Sulfate) 90 Mcg Aer.pow.ba 2 Puff IH PRN Q4-6HRS PRN Flonase Allergy Relief (Fluticasone Propionate) 9.9 Ml [place].susp 2 Sprays NS DAILY Lisinopril 2.5 Mg Tablet 1 Tab PO DAILY Carvedilol 25 Mg Tablet 3.125 Mg PO BIDWMEALS Pravastatin Sodium 40 Mg Tablet 1 Tab PO QHS Seroquel (Quetiapine Fumarate) 50 Mg Tablet 50 Mg PO HS Famotidine 40 Mg Tablet 40 Mg PO HS Voltaren Arthritis Pain (Diclofenac Sodium) 20 Gm Gel..gram. 20 Gm TP QID Sucralfate 1 Gm Tablet 1 Tab PO QID Singulair Tablet (Montelukast Sodium) 10 Mg Tablet 10 Mg PO HS Levetiracetam 500 Mg Tablet 1 Tab PO BID Cymbalta (Duloxetine Hcl) 60 Mg Capsule.dr 1 Cap PO BID Zyrtec (Cetirizine Hcl) 10 Mg Tablet 1 Tab PO DAILY Zofran (Ondansetron Hcl) 4 Mg Tablet 1 Tab PO Q6HRS Trazodone Hcl 50 Mg Tablet 1 Tab PO QHS Vitals/I & O Vital Sign - Last 24 Hours 11/30/20 11/30/20 11/30/20 11/30/20 11:00 14:56 15:00 17:14 Temp 98.6 98.5 98.6 98.5 Pulse 75 75 82 82 Resp 18 18 B/P (MAP) 130/91 (104) 130/91 126/66 (86) 126/66 Pulse Ox 93 94 O2 Delivery Room Air Room Air 11/30/20 11/30/20 11/30/20 12/01/20 19:00 20:10 23:00 03:00 Temp 98.0 97.5 98.0 98.0 97.5 98.0 Pulse 68 85 83 Resp 18 18 18 B/P (MAP) 109/59 (76) 119/61 (80) 96/48 (64) Pulse Ox 93 93 96 O2 Delivery Room Air Room Air Room Air Room Air 12/01/20 12/01/20 07:00 09:46 Temp 97.9 97.9 Pulse 71 71 Resp 18 B/P (MAP) 94/52 (66) 94/52 Pulse Ox 95 O2 Delivery Room Air Intake and Output 11/30/20 11/30/20 12/01/20 15:00 23:00 07:00 Intake Total 100 ml Balance 100 ml Justicifation of Admission Dx: Justifications for Admission: Justification of Admission Dx: Yes KHAI CARTER MD Dec 01, 2020 10:58
[2020-12-01 11:00] VITALS: BP 116/62
[2020-12-01 15:00] VITALS: BP 125/66
[2020-12-01] MEDS ORDERED: POTASSIUM CHLORIDE 20 MEQ TABLET.ER. PO ONE (16:00)
[2020-12-01 19:00] VITALS: BP 105/69
[2020-12-01] MEDS: QUEtiapine 25 MG TABLET. PO SCH (21:06)
[2020-12-01] MEDS: traZODone 50 MG TABLET. PO SCH (21:06)
[2020-12-01] MEDS: FAMOTIDINE 20 MG TABLET. PO SCH (21:07)
[2020-12-01] MEDS: MONTELUKAST SODIUM 10 MG TABLET. PO SCH (21:17)
[2020-12-01] MEDS: ATORVASTATIN CALCIUM 10 MG TABLET. PO SCH (21:17)
[2020-12-01 23:00] VITALS: BP 99/63
[2020-12-02 03:00] VITALS: BP 111/72
--- NOTE | 2020-12-02 03:34 | NUR ---
PT VERY TALKATIVE THIS SHIFT. UPON ARRIVING TO ROOM PT HAS LOTS OF NONE ENDING ADVENTURES/STORIES TO TELL THIS RN. PT IS ALERT AND ORIENT TIMES FOUR, A BIT FORGETFUL AT TIMES. FOLLOW COMMANDS. DENIES PAIN, SOB AND N/V. VSS, AFEBRILE. CURRENTLY TOLERATING CLEAR LIQUIDS, CAN ADAT. SLOW PROGRESS, WILL CONTINUE TO MONITOR.
[2020-12-02 07:59] VITALS: BP 137/70
[2020-12-02] MEDS: CARVEDILOL 3.125 MG TABLET. PO SCH (08:37)
[2020-12-02] MEDS: DULoxetine HCL 30 MG CAPSULE.DR PO SCH (08:37)
[2020-12-02] MEDS: CETIRIZINE HCL 10 MG TABLET. PO SCH (08:37)
[2020-12-02] MEDS: FLUTICASONE 50MCG/NASAL SPRAY 16GM BOTTLE. NS SCH (08:37)
[2020-12-02] MEDS: levETIRAcetam 500 MG TABLET PO SCH (08:38)
[2020-12-02] MEDS: LISINOPRIL 5 MG TABLET. PO SCH (08:38)
[2020-12-02] MEDS: PANTOPRAZOLE 40 MG TABLET.DR. PO SCH (08:39)
[2020-12-02] MEDS: DICLOFENAC SODIUM 1% TOPICAL GEL 100GM TUBE. TP SCH ×2 (08:40→13:00)
[2020-12-02] MEDS: CIPROFLOXACIN 200MG PREMIX 100 ML IV SCH (08:41)
[2020-12-02] MEDS: SUCRALFATE 1 GM TABLET. PO SCH ×2 (10:03→14:00)
[2020-12-02] MEDS: IV NORMAL SALINE 1000ML BAG 1,000 ML IV SCH (10:04)
[2020-12-02 11:02] VITALS: BP 114/70
--- NOTE | 2020-12-02 11:28 | PDOC ---
Date of Service: DATE: 12/02/20 TIME: 11:24 Subjective: Subjective: I saw her earlier this morning. No complaints. No abd pain. Still on clear liquid diet - hungry. Asks how many stones she has. Agrees to continue workup as outpt. Objective: Vital Signs: Vital Signs Date Time Temp Pulse Resp B/P (MAP) Pulse Ox O2 Delivery O2 Flow Rate FiO2 12/02/20 11:02 97.1 74 20 114/70 (85) 97 Room Air 97.1 Imaging: MRCP 11/29 IMPRESSION: 1. Redemonstrated central intra and extrahepatic biliary ductal dilation with sm ooth tapering distally. Questionable 3 mm filling defect at the ampulla, may represent an obstructing choledocholithiasis. Additional, 5 mm nonobstructing distal choledocholithiasis identified. 2. Redemonstrated ill-defined 1.4 cm soft tissue within the duodenal bulb, differential again includes prominent fold versus neoplasm. Recommend correlation with upper GI endoscopy. 3. New trace bilateral pleural effusions. PE: GEN: NAD LUNGS: CTAB HEART: RRR ABD: S/ND/NT NEURO/PSYCH: A & O 3 A/P: Fatigue, weight loss BLUE ?choledocholithiasis (normal LFTs) Abnormal duodenal imaging, ?h/o DU - on H2 deepthi, PPI, and Carafate here -- Confirmed w/ Dr. Horowitz - can consider outpt ERCP considering MRCP findings. ADAT, DC per primary. 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 ?need to continue atbx? Justicifation of Admission Dx: Justifications for Admission: Justification of Admission Dx: Yes MELONIE CASTANO Dec 02, 2020 11:28
--- NOTE | 2020-12-02 12:48 | NUR ---
SW following. Discussed with RN, pt from home alone, room air, clear liquid diet. Therapy stating no needs. Discharge order for home with self care. RN advised no SW needs.
--- NOTE | 2020-12-02 12:51 | PDOC ---
SURGICAL PROGRESS NOTE DATE: 12/02/20 TIME: 12:50 Subjective no pain tolerating diet Vital Signs Vital Signs Date Time Temp Pulse Resp B/P (MAP) Pulse Ox O2 Delivery O2 Flow Rate FiO2 12/02/20 11:02 97.1 74 20 114/70 (85) 97 Room Air 97.1 I&O Intake and Output 12/02/20 07:00 Intake Total 600 ml Balance 600 ml Intake Oral 600 ml # Voids 3 # Bowel Movements 1 General: Cooperative Abdomen: Soft, No tenderness Labs Laboratory Tests Test 12/01/20 06:25 White Blood Count 7.5 x10^3/uL (4.0-11.0) Red Blood Count 3.75 x10^6/uL (3.50-5.40) Hemoglobin 10.4 g/dL (12.0-15.5) Hematocrit 31.7 % (36.0-47.0) Mean Corpuscular Volume 85 fL (79-100) Mean Corpuscular Hemoglobin 28 pg (25-35) Mean Corpuscular Hemoglobin Concent 33 g/dL (31-37) Red Cell Distribution Width 15.7 % (11.5-14.5) Platelet Count 317 x10^3/uL (140-400) Neutrophils (%) (Auto) 62 % (31-73) Lymphocytes (%) (Auto) 26 % (24-48) Monocytes (%) (Auto) 10 % (0-9) Eosinophils (%) (Auto) 2 % (0-3) Basophils (%) (Auto) 0 % (0-3) Neutrophils # (Auto) 4.6 x10^3/uL (1.8-7.7) Lymphocytes # (Auto) 1.9 x10^3/uL (1.0-4.8) Monocytes # (Auto) 0.8 x10^3/uL (0.0-1.1) Eosinophils # (Auto) 0.1 x10^3/uL (0.0-0.7) Basophils # (Auto) 0.0 x10^3/uL (0.0-0.2) Sodium Level 148 mmol/L (136-145) Potassium Level 3.2 mmol/L (3.5-5.1) Chloride Level 114 mmol/L (98-107) Carbon Dioxide Level 26 mmol/L (21-32) Anion Gap 8 (6-14) Blood Urea Nitrogen 4 mg/dL (7-20) Creatinine 0.9 mg/dL (0.6-1.0) Estimated GFR (Cockcroft-Gault) 61.4 BUN/Creatinine Ratio 4 (6-20) Glucose Level 85 mg/dL (70-99) Calcium Level 7.7 mg/dL (8.5-10.1) Total Bilirubin 0.3 mg/dL (0.2-1.0) Aspartate Amino Transf (AST/SGOT) 14 U/L (15-37) Alanine Aminotransferase (ALT/SGPT) 12 U/L (14-59) Alkaline Phosphatase 70 U/L (46-116) Total Protein 5.3 g/dL (6.4-8.2) Albumin 2.4 g/dL (3.4-5.0) Albumin/Globulin Ratio 0.8 (1.0-1.7) Assessment/Plan agree wtih ADAT GI outpt FU no current surgery plans Justicifation of Admission Dx: Justifications for Admission: Justification of Admission Dx: Yes 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
--- NOTE | 2020-12-02 15:19 | PDOC ---
[employer] PROGRESS NOTE Date of Service DOS: DATE: 12/02/20 TIME: 15:19 Chief Complaint Chief Complaint Intractable abdominal pain Choledocholithiasis Ct findings with possible distal CBD stone--LFTS normal wall thickening to duodenum--possible doudenitis vs PUD, possible doudenal soft tissue density morbid obesity hx CAD PREDIABETES MAJOR depressive disorder osteoarthritis incontinence, urinary, chronis HX PUD, Duodenal ulcer hyperlipidemia Epilepsy hx COPD PLAN Admit per GI/ Dr. Horowitz - MRCP. ADAT , IV PPI for now. iv pain control work towards d/c GI plans for endoscopy and ERCP electively 12-01 Intractable abdominal pain, IMPROVED Choledocholithiasis Ct findings with possible distal CBD stone--LFTS normal wall thickening to duodenum--possible doudenitis vs PUD, possible doudenal soft tissue density morbid obesity hx CAD PREDIABETES MAJOR depressive disorder osteoarthritis incontinence, urinary, chronis HX PUD, Duodenal ulcer hyperlipidemia LESS PAIN Advance diet to full liquids D/W RN History of Present Illness History of Present Illness pland DC today 74 yr old female with complaint of persistent abdominal pain Reports previous EGDs and colonoscopies with hx PUD 11/29/2020: Afebrile. Patient reports improvement in abdominal pain. Plan for MRCP today. Discussed with RN. 11/30/2020: Intractable abdominal pain Choledocholithiasis Ct findings with possible distal CBD stone--LFTS normal wall thickening to duodenum--possible doudenitis vs PUD, possible doudenal soft tissue density morbid obesity hx CAD PREDIABETES MAJOR depressive disorder osteoarthritis incontinence, urinary, chronis Afebrile. improvement in abdominal pain. Plan for MRCP 11-29. Discussed with RN. try clears and ADAT distal CBD s/p cholecystectomy w/ h/o PUD pursue outpt ERCP. 12-01 Intractable abdominal pain, IMPROVED Choledocholithiasis Ct findings with possible distal CBD stone--LFTS normal wall thickening to duodenum--possible doudenitis vs PUD, possible doudenal soft tissue density morbid obesity hx CAD PREDIABETES MAJOR depressive disorder osteoarthritis incontinence, urinary, chronis HX PUD, Duodenal ulcer hyperlipidemia LESS PAIN Advance diet to full liquids D/W RN Vitals/I&O Vitals/I&O: Vital Signs Date Time Temp Pulse Resp B/P (MAP) Pulse Ox O2 Delivery O2 Flow Rate FiO2 12/02/20 11:02 97.1 74 20 114/70 (85) 97 Room Air 97.1 I & O 12/01/20 12/01/20 12/02/20 15:00 23:00 07:00 Intake Total 600 ml Balance 600 ml Physical Exam Physical Exam: lying in bed in NAD General: Cooperative Heart: Regular rate, Normal S1, Normal S2 Lungs: Clear Abdomen: Soft, No tenderness Extremities: No cyanosis Skin: No rashes, No breakdown Comment Review of Relevant I have reviewed the following items anurag (where applicable) has been applied. Medications: Current Medications Medications (Trade) Dose Ordered Sig/Lucas Route PRN Reason Start Time Stop Time Status Last Admin Dose Admin Potassium Chloride (Klor-Con) 40 meq 1X ONCE PO 12/01/20 16:00 12/01/20 16:01 DC 12/01/20 16:08 Justifications for Admission Other Justification SIMONA BOWDEN MD Dec 02, 2020 15:19
--- NOTE | 2020-12-02 15:21 | PDOC3 ---
Discharge Summary Visit Information Date of Admission: Nov 28, 2020 Date of Discharge: Dec 02, 2020 Final Diagnosis ntractable abdominal pain Choledocholithiasis Ct findings with possible distal CBD stone--LFTS normal wall thickening to duodenum--possible doudenitis vs PUD, possible doudenal soft tissue density morbid obesity hx CAD PREDIABETES MAJOR depressive disorder osteoarthritis incontinence, urinary, chronis HX PUD, Duodenal ulcer hyperlipidemia Epilepsy hx COPD Brief Hospital Course Allergies Allergies Coded Allergies Type Severity Reaction Last Updated Verified No Known Drug Allergies 11/27/20 No Vital Signs Vital Signs Date Time Temp Pulse Resp B/P (MAP) Pulse Ox O2 Delivery O2 Flow Rate FiO2 12/02/20 11:02 97.1 74 20 114/70 (85) 97 Room Air 97.1 Lab Results Laboratory Tests Test 12/01/20 06:25 White Blood Count 7.5 x10^3/uL (4.0-11.0) Red Blood Count 3.75 x10^6/uL (3.50-5.40) Hemoglobin 10.4 g/dL (12.0-15.5) Hematocrit 31.7 % (36.0-47.0) Mean Corpuscular Volume 85 fL (79-100) Mean Corpuscular Hemoglobin 28 pg (25-35) Mean Corpuscular Hemoglobin Concent 33 g/dL (31-37) Red Cell Distribution Width 15.7 % (11.5-14.5) Platelet Count 317 x10^3/uL (140-400) Neutrophils (%) (Auto) 62 % (31-73) Lymphocytes (%) (Auto) 26 % (24-48) Monocytes (%) (Auto) 10 % (0-9) Eosinophils (%) (Auto) 2 % (0-3) Basophils (%) (Auto) 0 % (0-3) Neutrophils # (Auto) 4.6 x10^3/uL (1.8-7.7) Lymphocytes # (Auto) 1.9 x10^3/uL (1.0-4.8) Monocytes # (Auto) 0.8 x10^3/uL (0.0-1.1) Eosinophils # (Auto) 0.1 x10^3/uL (0.0-0.7) Basophils # (Auto) 0.0 x10^3/uL (0.0-0.2) Sodium Level 148 mmol/L (136-145) Potassium Level 3.2 mmol/L (3.5-5.1) Chloride Level 114 mmol/L (98-107) Carbon Dioxide Level 26 mmol/L (21-32) Anion Gap 8 (6-14) Blood Urea Nitrogen 4 mg/dL (7-20) Creatinine 0.9 mg/dL (0.6-1.0) Estimated GFR (Cockcroft-Gault) 61.4 BUN/Creatinine Ratio 4 (6-20) Glucose Level 85 mg/dL (70-99) Calcium Level 7.7 mg/dL (8.5-10.1) Total Bilirubin 0.3 mg/dL (0.2-1.0) Aspartate Amino Transf (AST/SGOT) 14 U/L (15-37) Alanine Aminotransferase (ALT/SGPT) 12 U/L (14-59) Alkaline Phosphatase 70 U/L (46-116) Total Protein 5.3 g/dL (6.4-8.2) Albumin 2.4 g/dL (3.4-5.0) Albumin/Globulin Ratio 0.8 (1.0-1.7) Brief Hospital Course Ms. Conley is a 75 old female,admit with acute abd pain, nausea and vomiting, gallstones, will consider ERCP as outpateint, per GI/ Dr. Horowitz - did well with full liquids before DC Discharge Information Condition at Discharge: Improved Follow Up: Weeks Disposition/Orders: D/C to Home Scheduled Carvedilol (Carvedilol) 25 Mg Tablet, 3.125 MG PO BIDWMEALS for CARDIAC, (Reported) Entered as Reported by: ADDISON BRUNO on 11/28/20 1107 Last Taken: Unknown Dose on 11/27/20 Last Action: Converted on 11/30/20 1341 by JAQUAN HEREDIA RP Cetirizine Hcl (Zyrtec) 10 Mg Tablet, 1 TAB PO DAILY for na, #30 Ref 2 (Reported) Entered as Reported by: ADDISON BRUNO on 11/28/20 1100 Last Taken: Unknown Dose on 11/27/20 Last Action: Continued on 11/30/20 1341 by JAQUAN HEREDIA RP Diclofenac Sodium (Voltaren Arthritis Pain) 20 Gm Gel..gram., 20 GM TP QID for na, (Reported) Entered as Reported by: ADDISON BRUNO on 11/28/201106 Last Taken: Unknown Dose on 11/27/20 Last Action: Continued on 11/30/201340 by JAQUAN HEREDIA, GRUPO Duloxetine Hcl (Cymbalta) 60 Mg Capsule.dr, 1 CAP PO BID for na, #90 Ref 3 (Re ported) Entered as Reported by: ADDISON BRUNO on 11/28/20 1100 Last Taken: Unknown Dose on 11/27/20 Last Action: Converted on 11/30/201340 by JAQUAN HEREDIA, RP Famotidine (Famotidine) 40 Mg Tablet, 40 MG PO HS for na, (Reported) Entered as Reported by: ADDISON BRUNO on 11/28/201106 Last Taken: Unknown Dose on 11/27/20 Last Action: Converted on 11/30/201340 by JAQUAN HEREDIA, RPH Fluticasone Propionate (Flonase Allergy Relief) 9.9 Ml [place].susp, 2 SPRAYS NS DAILY for allergies, (Reported) Entered as Reported by: ADDISON BRUNO on 11/28/201106 Last Taken: Unknown Dose on 11/27/20 Last Action: Converted on 11/30/201340 by JAQUAN HEREDIA, RP Levetiracetam (Levetiracetam) 500 Mg Tablet, 1 TAB PO BID for na, #180 Ref 3 (Reported) Entered as Reported by: ADDISON BRUNO on 11/28/20 1100 Last Taken: Unknown Dose on 11/27/20 Last Action: Continued on 11/30/201340 by JAQUAN HEREDIA, RP Lisinopril (Lisinopril) 2.5 Mg Tablet, 1 TAB PO DAILY for BP, #30 Ref 5 (Reported) Entered as Reported by: ADDISON BRUNO on 11/28/201106 Last Taken: Unknown Dose on 11/27/20 Last Action: Converted on 11/30/201340 by JAQUAN HEREDIA, GRUPO Montelukast Sodium (Singulair Tablet ) 10 Mg Tablet, 10 MG PO HS for FOR ASTHMA, Ref 0 (Reported) Entered as Reported by: ADDISON BRUNO on 11/28/201100 Last Taken: Unknown Dose on 11/27/20 Last Action: Continued on 11/30/201340 by JAQUAN SHEETS, [facility] Ondansetron Hcl (Zofran) 4 Mg Tablet, 1 TAB PO Q6HRS for nausea, #20 (Reported) Entered as Reported by: ADDISON BRUNO on 11/28/201057 Last Taken: Unknown Dose on 11/27/20 Last Action: Converted on 11/30/201340 by JAQUAN SHEETS, RP Pravastatin Sodium (Pravastatin Sodium) 40 Mg Tablet, 1 TAB PO QHS for na, #90 Ref 3 (Reported) Entered as Reported by: ADDISON BRUNO on 11/28/201106 Last Taken: Unknown Dose on 11/27/20 Last Action: Converted on 11/30/201340 by JAQUAN SHEETS, [facility] Quetiapine Fumarate (Seroquel) 50 Mg Tablet, 50 MG PO HS for na, (Reported) Entered as Reported by: ADDISON BRUNO on 11/28/201106 Last Action: Converted on 11/30/201340 by JAQUAN SHEETS, [facility] Sucralfate (Sucralfate) 1 Gm Tablet, 1 TAB PO QID for na, #120 Ref 3 (Reported) Entered as Reported by: ADDISON BRUNO on 11/28/201106 Last Taken: Unknown Dose on 11/27/20 Last Action: Continued on 11/30/201340 by JAQUAN SHEETS, [facility] Trazodone Hcl (Trazodone Hcl) 50 Mg Tablet, 1 TAB PO QHS for sleep, #30 Ref 1 (Reported) Entered as Reported by: ADDISON BRUNO on 11/28/201057 Last Taken: Unknown Dose on 11/27/20 Last Action: Continued on 11/30/201340 by JAQUAN SHEETS, [facility] Scheduled PRN Albuterol Sulfate (Proair Respiclick) 90 Mcg Aer.pow.ba, 2 PUFF IH PRN Q4-6HRS PRN for shortness of breath, #1 Ref 0 (Reported) Entered as Reported by: ADDISON BRUNO on 11/28/201106 Last Taken: Unknown Dose on 11/27/20 Last Action: Converted on 11/30/201340 by JAQUAN SHEETS, [facility] Patient Instructions Patient Instructions > 30 min p[t seen and discussed Justicifation of Admission Dx: Justifications for Admission: Justification of Admission Dx: Yes SIMONA BOWDEN MD Dec 02, 2020 15:21
--- NOTE | 2020-12-02 15:39 | NUR ---
patient verbalized understanding of discharge instructions. Patient discharged home with self care. Cab pass provided.
== END 2020-12-02 15:30 | disposition home or self-care (01) | DRG 445 ==
LOC: 4 NORTH 19:35
PROVIDERS: ADMIT Family Medicine; ATTEND Family Medicine
DX: K80.51 Calculus of bile duct without cholangitis or cholecystitis with obstruction (principal); E44.1 Mild protein-calorie malnutrition; M79.7 Fibromyalgia; F32.9 Major depressive disorder, single episode, unspecified; K21.9 Gastro-esophageal reflux disease without esophagitis; K83.8 Other specified diseases of biliary tract; D64.9 Anemia, unspecified; I25.10 Atherosclerotic heart disease of native coronary artery without angina pectoris; R73.03 Prediabetes; M19.90 Unspecified osteoarthritis, unspecified site; E66.01 Morbid (severe) obesity due to excess calories; K27.9 Peptic ulcer, site unspecified, unspecified as acute or chronic, without hemorrhage or perforation; R32 Unspecified urinary incontinence; E78.5 Hyperlipidemia, unspecified; J44.9 Chronic obstructive pulmonary disease, unspecified; Z68.35 Body mass index [BMI] 35.0-35.9, adult; Z87.11 Personal history of peptic ulcer disease; Z90.710 Acquired absence of both cervix and uterus; Z90.49 Acquired absence of other specified parts of digestive tract
CPT/HCPCS: 36415; 74181; 80053; 81001; 82607; 83540; 83550; 85025; 85027; 87086; C9113; J0744; J2270; J2405; J3490; J7030; G0378

== ENCOUNTER 2020-12-10 03:21 | Inpatient (IN) | payer MEDICAID, MEDICARE ==
[~2020-12-10] VITALS: Ht 167.6 cm; Wt 93.6 kg
[~2020-12-10 03:21] MED LIST: CARV25TA2 PO; CETI10TA74 PO; DICL20GE TP; DULO60CA6 PO; FAMO40TA4 PO; FLUT9.9S NS; LEVE500T6 PO; LISI2.5T PO; MONT10TA49 PO; ONDA4TAB7 PO; PRAV40TA2 PO; PROAIR RESPICL90 MCG IH; QUET50TA5 PO; SUCR1TAB PO; TRAZ-118 PO
[2020-12-10 03:51] LABS: BASO % 0 % (0-3); EOS # 0.3 x10^3/uL (0.0-0.7); EOS % 3 % (0-3); HEMOGLOBIN 10.2 g/dL (12.0-15.5); LYMPH # 2.1 x10^3/uL (1.0-4.8); LYMPH % 24 % (24-48); MEAN CORPUSCULAR HEMOGLOBIN 28 pg (25-35); MEAN CORPUSCULAR HGB CONC 33 g/dL (31-37); MEAN CORPUSCULAR VOLUME 84 fL (79-100); MONO # 1.1 x10^3/uL (0.0-1.1); MONO % 12 % (0-9); NEUT # 5.5 x10^3/uL (1.8-7.7); NEUT % 61 % (31-73); PLATELET COUNT 355 x10^3/uL (140-400); RED CELL DISTRIBUTION WIDTH 16.5 % (11.5-14.5)
[2020-12-10 04:00] LABS: CALCIUM 8.1 mg/dL (8.5-10.1); CREATININE 0.8 mg/dL (0.6-1.0); GFR 70.3; POTASSIUM 3.5 mmol/L (3.5-5.1)
[2020-12-10 04:05] LABS: ALBUMIN 2.4 g/dL (3.4-5.0); ALBUMIN/GLOBULIN RATIO 0.8 (1.0-1.7); TOTAL BILIRUBIN 0.2 mg/dL (0.2-1.0); TOTAL PROTEIN 5.5 g/dL (6.4-8.2)
--- NOTE | 2020-12-10 04:11 | PHYS DOC ---
Past Medical History Past Medical History: Other Additional Past Medical Histor: gallstones, lower bake pain Past Surgical History: Hysterectomy, Other Additional Past Surgical Histo: bilat ankles. Smoking Status: Never Smoker Alcohol Use: None General Adult EDM: Chief Complaint: ABDOMINAL PAIN HPI: HPI: Patient is a 75 year old female who was brought here by EMS from home due to epigastric abdominal pain. Patient had this pain been going on for months. Patient was admitted here last month, had MRCP done, showed she had dilated common bile duct with a obstructing gallstone in the common bile duct.. Patient was discharged home, was scheduled to have an outpatient ERCP done. Patient was then readmitted here 4 days ago with the same pain, her lab work was normal . Patient was then discharged home on Wednesday, she says she is scheduled for an outpatient ERCP. patient called EMS to take her here because the pain got worse tonight. Patient denies any cough or fever, denies any trouble breathing Review of Systems: Review of Systems: Constitutional: Denies fever or chills. [] Eyes: Denies change in visual acuity. [] HENT: Denies nasal congestion or sore throat. [] Respiratory: Denies cough or shortness of breath. [] Cardiovascular: Denies chest pain or edema. [] GI: Positive for epigastric abdominal pain, no nausea vomiting, no diarrhea. : Denies dysuria. [] Musculoskeletal: Denies back pain or joint pain. [] Integument: Denies rash. [] Neurologic: Denies headache, focal weakness or sensory changes. [] Endocrine: Denies polyuria or polydipsia. [] Lymphatic: Denies swollen glands. [] Psychiatric: Denies depression or anxiety. [] Heart Score: C/O Chest Pain: N/A Risk Factors: Risk Factors: DM, Current or recent (<one month) smoker, HTN, HLP, family history of CAD, obesity. Risk Scores: Score 0 - 3: 2.5% MACE over next 6 weeks - Discharge Home Score 4 - 6: 20.3% MACE over next 6 weeks - Admit for Clinical Observation Score 7 - 10: 72.7% MACE over next 6 weeks - Early Invasive Strategies Allergies: Allergies: Allergies Coded Allergies Type Severity Reaction Last Updated Verified No Known Drug Allergies 11/27/20 No Physical Exam: PE: Constitutional: Well developed, well nourished, no acute distress, non-toxic appearance. [] HENT: Normocephalic, atraumatic, bilateral external ears normal, oropharynx moist, no oral exudates, nose normal. [] Eyes: PERRLA, EOMI, conjunctiva normal, no discharge. [] Neck: Normal range of motion, no tenderness, supple, no stridor. [] Cardiovascular:Heart rate regular rhythm, no murmur [] Lungs & Thorax: Bilateral breath sounds clear to auscultation [] Abdomen: Bowel sounds normal, soft, there is tenderness to palpation in the epigastric area, no masses, no pulsatile masses. [] Skin: Warm, dry, no erythema, no rash. [] Back: No tenderness, no CVA tenderness. [] Extremities: No tenderness, no cyanosis, no clubbing, ROM intact, no edema. [] Neurologic: Alert and oriented X 3, normal motor function, normal sensory function, no focal deficits noted. [] Psychologic: Affect normal, judgement normal, mood normal. [] Current Patient Data: Labs: Laboratory Tests Test 12/10/20 03:33 White Blood Count 9.0 x10^3/uL (4.0-11.0) Red Blood Count 3.70 x10^6/uL (3.50-5.40) Hemoglobin 10.2 g/dL (12.0-15.5) L Hematocrit 31.0 % (36.0-47.0) L Mean Corpuscular Volume 84 fL (79-100) Mean Corpuscular Hemoglobin 28 pg (25-35) Mean Corpuscular Hemoglobin Concent 33 g/dL (31-37) Red Cell Distribution Width 16.5 % (11.5-14.5) H Platelet Count 355 x10^3/uL (140-400) Neutrophils (%) (Auto) 61 % (31-73) Lymphocytes (%) (Auto) 24 % (24-48) Monocytes (%) (Auto) 12 % (0-9) H Eosinophils (%) (Auto) 3 % (0-3) Basophils (%) (Auto) 0 % (0-3) Neutrophils # (Auto) 5.5 x10^3/uL (1.8-7.7) Lymphocytes # (Auto) 2.1 x10^3/uL (1.0-4.8) Monocytes # (Auto) 1.1 x10^3/uL (0.0-1.1) Eosinophils # (Auto) 0.3 x10^3/uL (0.0-0.7) Basophils # (Auto) 0.0 x10^3/uL (0.0-0.2) Sodium Level 143 mmol/L (136-145) Potassium Level 3.5 mmol/L (3.5-5.1) Chloride Level 108 mmol/L (98-107) H Carbon Dioxide Level 31 mmol/L (21-32) Anion Gap 4 (6-14) L Blood Urea Nitrogen 14 mg/dL (7-20) Creatinine 0.8 mg/dL (0.6-1.0) Estimated GFR (Cockcroft-Gault) 70.3 BUN/Creatinine Ratio 18 (6-20) Glucose Level 100 mg/dL (70-99) H Calcium Level 8.1 mg/dL (8.5-10.1) L Total Bilirubin 0.2 mg/dL (0.2-1.0) Aspartate Amino Transferase (AST) 13 U/L (15-37) L Alanine Aminotransferase (ALT) 7 U/L (14-59) L Alkaline Phosphatase 58 U/L (46-116) Troponin I Quantitative < 0.017 ng/mL (0.000-0.055) Total Protein 5.5 g/dL (6.4-8.2) L Albumin 2.4 g/dL (3.4-5.0) L Albumin/Globulin Ratio 0.8 (1.0-1.7) L Lipase 72 U/L (73-393) L Laboratory Tests 12/10/20 03:33 Laboratory Tests 12/10/20 03:33 Vital Signs: Vital Signs Date Time Temp Pulse Resp B/P (MAP) Pulse Ox O2 Delivery O2 Flow Rate FiO2 12/10/20 03:23 98.0 68 18 128/69 (88) 97 Room Air 98.0 EKG: EKG: [] Radiology/Procedures: Radiology/Procedures: [][facility] [address] [place] [address] IMAGING REPORT Signed PATIENT: JAMAR TAVARES ACCOUNT: [id number] : 1945 LOCATION: ER AGE: 75 SEX: F EXAM STATUS: REG ER ORD. PHYSICIAN: COMPA RODGERS DO REASON: ABDOMINAL PAIN PROCEDURE: ACUTE ABDOMEN SERIES EXAM: ABDOMEN 2 VIEWS WITH PA CHEST History: Abdominal pain TECHNIQUE: An upright view the chest and upright and supine views of the abdomen COMPARISON: None available. FINDINGS: The cardiomediastinal silhouette grossly appears unremarkable. Minimal left lung base atelectasis or infiltrate.. Moderate amount of stool identified throughout the colon. IMPRESSION: 1. Minimal left lung base atelectasis or infiltrate. 2. Moderate amount of stool identified throughout the colon likely constipation. Electronically signed by: Gelacio Manuel MD (12/10/2020 4:34 AM) [id number] DICTATED and SIGNED BY: GELACIO MANUEL MD DATE: 12/10/20 [id number] 0 Course & Med Decision Making: Course & Med Decision Making Pertinent Labs and Imaging studies reviewed. (See chart for details) Patient is a 74-year-old female who presented to the ER due to epigastric abdominal pain, patient had MRCP done about 10 days ago which shows she has gallstone in the common bile duct, she is scheduled for outpatient ERCP. patient Come back here due to increased pain, her lab work was normal again. Patient will be admitted to hospital. Betty Disclaimer: Betty Disclaimer: This electronic medical record was generated, in whole or in part, using a voice recognition dictation system. Departure Departure Impression: Primary Impression: Abdominal pain Disposition: ADMITTED INPATIENT Admitting Physician: STEPHY (Dr. Calvin) Condition: STABLE (Dr. Calvin) Referrals: SHARON STAUFFER MD (PCP) COMPA RODGERS DO Dec 10, 2020 04:11
[2020-12-10] MEDS ORDERED: LIDO:MAALOX 1:1 20 ML SINGLE DOSE. SWSW ONE (04:30)
[2020-12-10] MEDS ORDERED: PANTOPRAZOLE IV PUSH 40 MG VIAL. IVP ONE (04:30)
--- NOTE | 2020-12-10 04:36 | RAD ---
EXAM: ABDOMEN 2 VIEWS WITH PA CHEST History: Abdominal pain TECHNIQUE: An upright view the chest and upright and supine views of the abdomen COMPARISON: None available. FINDINGS: The cardiomediastinal silhouette grossly appears unremarkable. Minimal left lung base atele ctasis or infiltrate.. Moderate amount of stool identified throughout the colon. IMPRESSION: 1. Minimal left lung base atelectasis or infiltrate. 2. Moderate amount of stool identified throughout the colon likely constipation. Electronically signed by: Gelacio Manuel MD (12/10/2020 4:34 AM) [id number]
[2020-12-10] MEDS ORDERED: ONDANSETRON PF 4 MG/2 ML VIAL. IV PRN (05:00)
[2020-12-10] MEDS: IV NORMAL SALINE 1000ML BAG 1,000 ML IV SCH ×2 (05:09→19:03)
[2020-12-10] MEDS: MORPHINE SULFATE 2 MG/ML INJ. IV PRN ×3 (05:13→21:37)
--- NOTE | 2020-12-10 05:24 | EKG ---
[facility] [address] [place] [address] Test Date: 2020-12-10 Test Time: 04:09:11 Pat Name: JAMAR TAVARES Department: Room: [facility] Gender: F [employer]: : 1945 Requested By: COMPA RODGERS Order Number: [id number] Reading MD: Timi Iverson Measurements Intervals [place] Rate: 70 P: 0 OR: 152 QRS: -30 QRSD: 114 T: 15 QT: 448 QTc: 487 Interpretive Statements SINUS RHYTHM ABNORMAL LEFT AXIS DEVIATION LEFT ANTERIOR FASCICULAR BLOCK PROLONGED QT ABNORMAL ECG RI6.01 No previous ECG available for comparison Electronically Signed On 12-11-2020 11:52:29 CDT by Timi Iverson
[2020-12-10 06:00] VITALS: BP 103/58
--- NOTE | 2020-12-10 06:48 | PDOC1 ---
History and Physical Date of Admission Date of Admission DATE: 12/10/20 TIME: 06:40 Identification/Chief Complaint Chief Complaint Abdominal pain Source Source: Chart review, Patient History of Present Illness History of Present Illness This is a 72-year-old female with past medical history of cholelithiasis, who presents to the ED with complaints of epigastric abdominal pain. She has a history of similar pain over the past months, recently been admitted on 11/27/2020 and again on 12/06/2020 for similar complaints. She was seen by GI at that time and recommended ERCP or EUS in the very near future. These have been arranged with Dr. Horowitz with GI. Pain acutely worsened last night, so she presented to the ED. Labs in the ED showed WBC 9.0, hemoglobin 10.2, hematocrit 31.0, albumin 2.4. Acute abdomen series showed constipation. Will admit patient for further medical management. Past Medical History CENTRAL NERVOUS SYSTEM: Seizure GI: GERD, Peptic Ulcer disease Psych: Depression Past Surgical History Past Surgical History: Cholecystectomy, Hysterectomy Family History Family History: Family History Unknown Social History Smoke: No ALCOHOL: rare Drugs: None Current Problem List Problem List Problems Medical Problems: (1) Abdominal pain Status: Acute Current Medications Current Medications Current Medications Multi-Ingredient Mouthwash/Gargle (Gi Cocktail) 20 ml 1X ONCE SWSW Last administered on 12/10/20at 05:09; Start 12/10/20 at 04:30; Stop 12/10/20 at 04:31; Status DC Pantoprazole Sodium (PROTONIX VIAL for IV PUSH) 40 mg 1X ONCE IVP Last administered on 12/10/20at 05:12; Start 12/10/20 at 04:30; Stop 12/10/20 at 04:31; Status DC Ondansetron HCl (Zofran) 4 mg PRN Q8HRS PRN IV NAUSEA/VOMITING 1ST CHOICE Last administered on 12/10/20at 05:12; Start 12/10/20 at 05:00; Stop 12/11/20 at 04:59 Morphine Sulfate (Morphine Sulfate) 2 mg PRN Q2HR PRN IV SEVERE PAIN 7-10 Last administered on 12/10/20at 05:13; Start 12/10/20 at 05:00; Stop 12/11/20 at 04:59 Sodium Chloride 1,000 ml @ 75 mls/hr [id number] IV Last administered on 12/10/20at 05:09; Start 12/10/20 at 05:00; Stop 12/11/20 at 04:59 Active Scripts Active Reported Proair Respiclick (Albuterol Sulfate) 90 Mcg Aer.pow.ba 2 Puff IH PRN Q4-6HRS PRN Flonase Allergy Relief (Fluticasone Propionate) 9.9 Ml Palmer.susp 2 Sprays NS DAILY Lisinopril 2.5 Mg Tablet 1 Tab PO DAILY Carvedilol 25 Mg Tablet 3.125 Mg PO BIDWMEALS Pravastatin Sodium 40 Mg Tablet 1 Tab PO QHS Seroquel (Quetiapine Fumarate) 50 Mg Tablet 50 Mg PO HS Famotidine 40 Mg Tablet 40 Mg PO HS Voltaren Arthritis Pain (Diclofenac Sodium) 20 Gm Gel..gram. 20 Gm TP QID Sucralfate 1 Gm Tablet 1 Tab PO QID Singulair Tablet (Montelukast Sodium) 10 Mg Tablet 10 Mg PO HS Levetiracetam 500 Mg Tablet 1 Tab PO BID Cymbalta (Duloxetine Hcl) 60 Mg Capsule.dr 1 Cap PO BID Zyrtec (Cetirizine Hcl) 10 Mg Tablet 1 Tab PO DAILY Zofran (Ondansetron Hcl) 4 Mg Tablet 1 Tab PO Q6HRS Trazodone Hcl 50 Mg Tablet 1 Tab PO QHS Allergies Allergies: Coded Allergies: No Known Drug Allergies (Unverified , 11/27/20) ROS Review of System GENERAL: No history of weight change, weakness or fevers. SKIN: No bruising, hair changes or rashes. EYES: No blurred, double or loss of vision. NOSE AND THROAT: No history of nosebleeds, hoarseness or sore throat. HEART: Denies chest pain, denies palpitations. LUNGS: Denies cough, hemoptysis, wheezing or shortness of breath. GASTROINTESTINAL: Abdominal pain. Denies nausea, vomiting. GENITOURINARY: Denies dysuria, frequency, urgency, hematuria. NEUROLOGIC: Denies history of numbness, tingling, tremor or weakness. PSYCHIATRIC: Denies anxiety, denies depression. ENDOCRINE: No history of heat or cold intolerance, polyuria or polydipsia. EXTREMITIES: Denies muscle weakness, joint pain, pain on walking or stiffness. Physical Exam Physical Exam General: Alert, Oriented X3, Cooperative, No acute distress HEENT: PERRLA, EOMI Lungs: Clear to auscultation, Normal air movement Heart: RRR, no murmurs Cardiovascular: S1, S2 Abdomen: Epigastric abdominal tenderness. Normal bowel sounds, Soft. Extremities: No clubbing, No cyanosis Skin: No rashes, No significant lesion Neuro: Normal speech, Normal tone, Sensation intact Psych/Mental Status: Mental status NL, Mood NL Vitals Vitals Vital Signs Date Time Temp Pulse Resp B/P (MAP) Pulse Ox O2 Delivery O2 Flow Rate FiO2 12/10/20 05:13 96 Room Air 12/10/20 05:00 62 20 123/70 (87) 12/10/20 03:23 98.0 98.0 Labs Labs Laboratory Tests Test 12/10/20 03:33 White Blood Count 9.0 x10^3/uL (4.0-11.0) Red Blood Count 3.70 x10^6/uL (3.50-5.40) Hemoglobin 10.2 g/dL (12.0-15.5) Hematocrit 31.0 % (36.0-47.0) Mean Corpuscular Volume 84 fL (79-100) Mean Corpuscular Hemoglobin 28 pg (25-35) Mean Corpuscular Hemoglobin Concent 33 g/dL (31-37) Red Cell Distribution Width 16.5 % (11.5-14.5) Platelet Count 355 x10^3/uL (140-400) Neutrophils (%) (Auto) 61 % (31-73) Lymphocytes (%) (Auto) 24 % (24-48) Monocytes (%) (Auto) 12 % (0-9) Eosinophils (%) (Auto) 3 % (0-3) Basophils (%) (Auto) 0 % (0-3) Neutrophils # (Auto) 5.5 x10^3/uL (1.8-7.7) Lymphocytes # (Auto) 2.1 x10^3/uL (1.0-4.8) Monocytes # (Auto) 1.1 x10^3/uL (0.0-1.1) Eosinophils # (Auto) 0.3 x10^3/uL (0.0-0.7) Basophils # (Auto) 0.0 x10^3/uL (0.0-0.2) Sodium Level 143 mmol/L (136-145) Potassium Level 3.5 mmol/L (3.5-5.1) Chloride Level 108 mmol/L (98-107) Carbon Dioxide Level 31 mmol/L (21-32) Anion Gap 4 (6-14) Blood Urea Nitrogen 14 mg/dL (7-20) Creatinine 0.8 mg/dL (0.6-1.0) Estimated GFR (Cockcroft-Gault) 70.3 BUN/Creatinine Ratio 18 (6-20) Glucose Level 100 mg/dL (70-99) Calcium Level 8.1 mg/dL (8.5-10.1) Total Bilirubin 0.2 mg/dL (0.2-1.0) Aspartate Amino Transf (AST/SGOT) 13 U/L (15-37) Alanine Aminotransferase (ALT/SGPT) 7 U/L (14-59) Alkaline Phosphatase 58 U/L (46-116) Troponin I Quantitative < 0.017 ng/mL (0.000-0.055) Total Protein 5.5 g/dL (6.4-8.2) Albumin 2.4 g/dL (3.4-5.0) Albumin/Globulin Ratio 0.8 (1.0-1.7) Lipase 72 U/L (73-393) Laboratory Tests Test 12/10/20 03:33 White Blood Count 9.0 x10^3/uL (4.0-11.0) Red Blood Count 3.70 x10^6/uL (3.50-5.40) Hemoglobin 10.2 g/dL (12.0-15.5) Hematocrit 31.0 % (36.0-47.0) Mean Corpuscular Volume 84 fL (79-100) Mean Corpuscular Hemoglobin 28 pg (25-35) Mean Corpuscular Hemoglobin Concent 33 g/dL (31-37) Red Cell Distribution Width 16.5 % (11.5-14.5) Platelet Count 355 x10^3/uL (140-400) Neutrophils (%) (Auto) 61 % (31-73) Lymphocytes (%) (Auto) 24 % (24-48) Monocytes (%) (Auto) 12 % (0-9) Eosinophils (%) (Auto) 3 % (0-3) Basophils (%) (Auto) 0 % (0-3) Neutrophils # (Auto) 5.5 x10^3/uL (1.8-7.7) Lymphocytes # (Auto) 2.1 x10^3/uL (1.0-4.8) Monocytes # (Auto) 1.1 x10^3/uL (0.0-1.1) Eosinophils # (Auto) 0.3 x10^3/uL (0.0-0.7) Basophils # (Auto) 0.0 x10^3/uL (0.0-0.2) Sodium Level 143 mmol/L (136-145) Potassium Level 3.5 mmol/L (3.5-5.1) Chloride Level 108 mmol/L (98-107) Carbon Dioxide Level 31 mmol/L (21-32) Anion Gap 4 (6-14) Blood Urea Nitrogen 14 mg/dL (7-20) Creatinine 0.8 mg/dL (0.6-1.0) Estimated GFR (Cockcroft-Gault) 70.3 BUN/Creatinine Ratio 18 (6-20) Glucose Level 100 mg/dL (70-99) Calcium Level 8.1 mg/dL (8.5-10.1) Total Bilirubin 0.2 mg/dL (0.2-1.0) Aspartate Amino Transf (AST/SGOT) 13 U/L (15-37) Alanine Aminotransferase (ALT/SGPT) 7 U/L (14-59) Alkaline Phosphatase 58 U/L (46-116) Troponin I Quantitative < 0.017 ng/mL (0.000-0.055) Total Protein 5.5 g/dL (6.4-8.2) Albumin 2.4 g/dL (3.4-5.0) Albumin/Globulin Ratio 0.8 (1.0-1.7) Lipase 72 U/L (73-393) Images Images PATIENT: JAMAR TAVARES ACCOUNT: [id number] : 1945 LOCATION: ER AGE: 75 SEX: F EXAM STATUS: REG ER ORD. PHYSICIAN: COMPA RODGERS DO REASON: ABDOMINAL PAIN PROCEDURE: ACUTE ABDOMEN SERIES EXAM: ABDOMEN 2 VIEWS WITH PA CHEST History: Abdominal pain TECHNIQUE: An upright view the chest and upright and supine views of the abdomen COMPARISON: None available. FINDINGS: The cardiomediastinal silhouette grossly appears unremarkable. Minimal left lung base atelectasis or infiltrate.. Moderate amount of stool identified throughout the colon. IMPRESSION: 1. Minimal left lung base atelectasis or infiltrate. 2. Moderate amount of stool identified throughout the colon likely constipation. VTE Prophylaxis Ordered VTE Prophylaxis Devices: No VTE Pharmacological Prophylaxi: Yes Assessment/Plan Assessment/Plan Choledocholithiasis Acute abdominal pain History of fibromyalgia History of depression History of GERD and peptic ulcer disease Plan: Consultation placed to GI IV pain management Famotidine GI prophylaxis Resume home medications FEN - Cardiac diet PPX - Lovenox DNR Dispo - inpatient for above Advance Care Planning: Total time spent [id number] with patient 16 minutes in discussion with goals of care, comfort care, end-of-life care, pain management, code status; patient names her daughter (Carol Maya) as surrogate decision- maker. Justifications for Admission Other Justification Cholelithiasis ROSS LIZARRAGA MD Dec 10, 2020 06:48
[2020-12-10] MEDS ORDERED: BISACODYL 10 MG SUPP.RECT. PR PRN (07:15)
[2020-12-10] MEDS ORDERED: ACETAMINOPHEN 325 MG TABLET. PO PRN (07:15)
[2020-12-10] MEDS ORDERED: ONDANSETRON PF 4 MG/2 ML VIAL. IVP PRN (07:15)
[2020-12-10] MEDS ORDERED: HYDROcodone/APAP 5/325MG 1 TAB TABLET PO PRN (07:15)
[2020-12-10] MEDS ORDERED: CALCIUM CARBONATE 500 MG TAB.CHEW PO PRN (07:15)
[2020-12-10] MEDS ORDERED: MAGNESIUM HYDROXIDE 2,400 MG/30 ML ORAL.SUSP. PO PRN (07:15)
[2020-12-10] MEDS ORDERED: ZOLPIDEM 5 MG TABLET. PO PRN (07:15)
[2020-12-10] MEDS ORDERED: MAG HYDROX/ALUMINUM HYD/SIMETH 30 ML ORAL.SUSP PO PRN (07:15)
[2020-12-10] MEDS: SUCRALFATE 1 GM TABLET. PO SCH ×4 (07:30→21:39)
[2020-12-10 07:33] VITALS: BP_SYST 107; BP_SYST 109; BP_DIAS 109; BP_DIAS 62
[2020-12-10] MEDS: CARVEDILOL 3.125 MG TABLET. PO SCH ×2 (08:00→17:56)
[2020-12-10] MEDS: CETIRIZINE HCL 10 MG TABLET. PO SCH (09:00)
[2020-12-10] MEDS: levETIRAcetam 500 MG TABLET PO SCH ×2 (09:00→21:39)
[2020-12-10] MEDS: DULoxetine HCL 30 MG CAPSULE.DR PO SCH ×2 (09:00→21:38)
[2020-12-10] MEDS: LISINOPRIL 5 MG TABLET. PO SCH (09:00)
--- NOTE | 2020-12-10 10:08 | PDOC ---
Date of Service: DATE: 12/10/20 TIME: 10:08 Subjective: Subjective: Third admission since 11/27/20 - please see past two GI consults and progress notes. Awoke in the middle of the night w/ epigastric pain. Doesn't think related to eating because she was not bothered after dinner. No n/v or diarrhea. Stooled yesterday. Was taking Tums at home. Nurse present - pt requesting to get up to urinate, says she can't do it herself because she's too weak from pain - also thinks she might have already gone. Objective: Objective: Note GI cocktail was given - unclear if this was helpful. Vital Signs: Vital Signs Date Time Temp Pulse Resp B/P (MAP) Pulse Ox O2 Delivery O2 Flow Rate FiO2 12/10/20 07:33 97.0 68 16 109/62 (78) 95 Room Air 97.0 Labs: Laboratory Tests Test 12/10/20 03:33 White Blood Count 9.0 x10^3/uL Red Blood Count 3.70 x10^6/uL Hemoglobin 10.2 g/dL Hematocrit 31.0 % Mean Corpuscular Volume 84 fL Mean Corpuscular Hemoglobin 28 pg Mean Corpuscular Hemoglobin Concent 33 g/dL Red Cell Distribution Width 16.5 % Platelet Count 355 x10^3/uL Neutrophils (%) (Auto) 61 % Lymphocytes (%) (Auto) 24 % Monocytes (%) (Auto) 12 % Eosinophils (%) (Auto) 3 % Basophils (%) (Auto) 0 % Neutrophils # (Auto) 5.5 x10^3/uL Lymphocytes # (Auto) 2.1 x10^3/uL Monocytes # (Auto) 1.1 x10^3/uL Eosinophils # (Auto) 0.3 x10^3/uL Basophils # (Auto) 0.0 x10^3/uL Sodium Level 143 mmol/L Potassium Level 3.5 mmol/L Chloride Level 108 mmol/L Carbon Dioxide Level 31 mmol/L Anion Gap 4 Blood Urea Nitrogen 14 mg/dL Creatinine 0.8 mg/dL Estimated GFR (Cockcroft-Gault) 70.3 BUN/Creatinine Ratio 18 Glucose Level 100 mg/dL Calcium Level 8.1 mg/dL Total Bilirubin 0.2 mg/dL Aspartate Amino Transf (AST/SGOT) 13 U/L Alanine Aminotransferase (ALT/SGPT) 7 U/L Alkaline Phosphatase 58 U/L Troponin I Quantitative < 0.017 ng/mL Total Protein 5.5 g/dL Albumin 2.4 g/dL Albumin/Globulin Ratio 0.8 Lipase 72 U/L Imaging: [facility] 12/09 IMPRESSION: 1. Minimal left lung base atelectasis or infiltrate. 2. Moderate amount of stool identified throughout the colon likely constipation. PE: GEN: NAD - was asleep, seem uncomfortable LUNGS: CTAB HEART: RRR ABD: soft, epigastric discomfort NEURO/PSYCH: A & O 3 but poor historian/not too forthcoming A/P: Epigastric pain BLUE Abnormal duodenal imaging, ?h/o DU ?choledocholithiasis - LFTs remain WNL Fatty liver, CBD 13mm s/p cholecystectomy -- Have previously recommended outpt EGD and colonoscopy w/ consideration for ERCP but admitted again. Will return to see later w/ Dr. Horowitz. Currently NPO. Will review diet w/ Dr. Horowitz. Defer IVF to primary. 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 Justicifation of Admission Dx: Justifications for Admission: Justification of Admission Dx: Yes MELONIE CASTANO Dec 10, 2020 10:08
[2020-12-10] MEDS: ENOXAPARIN 40 MG/0.4 ML SYRINGE. SQ SCH (10:35)
[2020-12-10] MEDS: DICLOFENAC SODIUM 1% TOPICAL GEL 100GM TUBE. TP SCH ×4 (10:38→21:40)
[2020-12-10 10:56] VITALS: BP 118/60
--- NOTE | 2020-12-10 11:06 | NUR ---
SW following. Discussed with RN, pt from home alone, room air, NPO. PT/OT ordered. GI following. SW will continue to follow.
[2020-12-10 15:08] VITALS: BP 120/63
[2020-12-10 19:25] VITALS: BP 128/71
[2020-12-10] MEDS: traZODone 50 MG TABLET. PO SCH (21:39)
[2020-12-10] MEDS: FAMOTIDINE 20 MG TABLET. PO SCH (21:39)
[2020-12-10] MEDS: QUEtiapine 25 MG TABLET. PO SCH (21:39)
[2020-12-10] MEDS: ATORVASTATIN CALCIUM 10 MG TABLET. PO SCH (21:39)
[2020-12-10 23:15] VITALS: BP 112/65
[2020-12-11] VITALS (7 sets, daily range): BP systolic 113–139; BP diastolic 61–75
[2020-12-11] MEDS: SUCRALFATE 1 GM TABLET. PO SCH ×4 (07:30→21:09)
--- NOTE | 2020-12-11 08:35 | PDOC ---
[employer] PROGRESS NOTE Date of Service DOS: DATE: 12/11/20 TIME: 08:29 Chief Complaint Chief Complaint Choledocholithiasis Acute abdominal pain History of fibromyalgia History of depression History of GERD and peptic ulcer disease Plan: Consultation placed to GI IV pain management Famotidine GI prophylaxis Resume home medications FEN - Cardiac diet PPX - Lovenox DNR Dispo - inpatient for above Advance Care Planning: Total time spent [id number] with patient 16 minutes in discussion with goals of care, comfort care, end-of-life care, pain management, code status; patient names her daughter (Carol Maya) as surrogate decision- maker. History of Present Illness History of Present Illness This is a 72-year-old female with past medical history of cholelithiasis, who presents to the ED with complaints of epigastric abdominal pain. She has a history of similar pain over the past months, recently been admitted on 11/27/2020 and again on 12/06/2020 for similar complaints. She was seen by GI at that time and recommended ERCP or EUS in the very near future. These have been arranged with Dr. Horowitz with GI. Pain acutely worsened last night, so she presented to the ED. Labs in the ED showed WBC 9.0, hemoglobin 10.2, hematocrit 31.0, albumin 2.4. Acute abdomen series showed constipation. Will admit patient for further medical management. 12/11/2020: Afebrile, no events overnight. Still with abdominal pain, but denies nausea or vomiting. LFTs largely within normal limits, certainly not significantly elevated like expected with choledocholithiasis. Per GI, EGD today to search for other causes of her epigastric pain; however ultimately may need ERCP. Vitals/I&O Vitals/I&O: Vital Signs Date Time Temp Pulse Resp B/P (MAP) Pulse Ox O2 Delivery O2 Flow Rate FiO2 12/11/20 03:09 98.2 59 20 118/66 (83) 93 Nasal Cannula 2.0 98.2 I & O 12/10/20 12/10/20 12/11/20 15:00 23:00 07:00 Intake Total 280 ml Output Total 3 ml Balance 277 ml Physical Exam General: Alert, Oriented X3, Cooperative, mild distress Heart: Regular rate Lungs: Clear Abdomen: Soft, Other (Epigastric abdominal tenderness) Extremities: No clubbing, No cyanosis Skin: No rashes, No breakdown Assessment and Plan Assessmemt and Plan Problems Medical Problems: (1) Abdominal pain Status: Acute Comment Review of Relevant I have reviewed the following items anurag (where applicable) has been applied. Medications: Current Medications Medications (Trade) Dose Ordered Sig/Lucas Route PRN Reason Start Time Stop Time Status Last Admin Dose Admin Diclofenac Sodium (Voltaren) 1 jennifer QID TP 12/10/20 09:00 12/10/20 21:40 Levetiracetam (Keppra) 500 mg BID PO 12/10/20 09:00 12/10/20 21:39 Trazodone HCl (Desyrel) 50 mg QHS PO 12/10/20 21:00 12/10/20 21:39 Duloxetine HCl (Cymbalta) 60 mg BID PO 12/10/20 09:00 12/10/20 21:38 Famotidine (Pepcid) 40 mg HS PO 12/10/20 21:00 12/10/20 21:39 Atorvastatin Calcium (Lipitor) 10 mg QHS PO 12/10/20 21:00 12/10/20 21:39 Quetiapine Fumarate (SEROquel) 50 mg HS PO 12/10/20 21:00 12/10/20 21:39 Enoxaparin Sodium (Lovenox 40mg Syringe) 40 mg Q24H SQ 12/10/20 09:00 12/10/20 10:35 Justifications for Admission Other Justification Cholelithiasis ROSS LIZARRAGA MD Dec 11, 2020 08:35
[2020-12-11] MEDS ORDERED: PANTOPRAZOLE 40 MG TABLET.DR. PO SCH (09:00)
[2020-12-11] MEDS: DULoxetine HCL 30 MG CAPSULE.DR PO SCH ×2 (09:00→21:10)
[2020-12-11] MEDS: ENOXAPARIN 40 MG/0.4 ML SYRINGE. SQ SCH (09:00)
[2020-12-11] MEDS: CETIRIZINE HCL 10 MG TABLET. PO SCH (09:00)
[2020-12-11] MEDS: LISINOPRIL 5 MG TABLET. PO SCH (09:00)
[2020-12-11] MEDS: levETIRAcetam 500 MG TABLET PO SCH ×2 (09:00→21:09)
[2020-12-11] MEDS: CARVEDILOL 3.125 MG TABLET. PO SCH ×2 (09:23→17:31)
[2020-12-11] MEDS: MORPHINE SULFATE 4 MG/ML INJ. IV PRN ×2 (09:38→21:06)
[2020-12-11] MEDS: DICLOFENAC SODIUM 1% TOPICAL GEL 100GM TUBE. TP SCH ×4 (09:45→21:10)
[2020-12-11] MEDS ORDERED: IV RINGERS,LACTATED 1000ML 1,000 ML IV SCH (10:15)
[2020-12-11] MEDS ORDERED: LIDOCAINE 2% PF 5 ML VIAL. ONE (12:35)
[2020-12-11] MEDS ORDERED: PROPOFOL 10 MG/ML (20ML) VIAL. IV ONE (12:35)
--- NOTE | 2020-12-11 12:52 | PDOC4 ---
PROCEDURE Procedure EGD/biopsies Indication: Epigastric pain/abnormal imaging Meds: per anesthesia Findings: E--normal. GEJ at 35cm. G--Large HH. Prepyloric deformity. Biopsies antrum re: H.pylori. D--~1cm ulcer anterior wall bulb with neighboring stricture; able to pass into second portion with small caliber scope (Don't think ERCP scope would fit). Jasmyne. well. IMP: DU REC: PPI daily. F/u biopsies. OK to feed. REGI FLORES MD Dec 11, 2020 12:51
[2020-12-11] MEDS: ATORVASTATIN CALCIUM 10 MG TABLET. PO SCH (21:09)
[2020-12-11] MEDS: FAMOTIDINE 20 MG TABLET. PO SCH (21:10)
[2020-12-11] MEDS: QUEtiapine 25 MG TABLET. PO SCH (21:10)
[2020-12-11] MEDS: traZODone 50 MG TABLET. PO SCH (21:10)
[2020-12-12 03:00] VITALS: BP 112/45
[2020-12-12 07:00] VITALS: BP 109/57
[2020-12-12] MEDS: SUCRALFATE 1 GM TABLET. PO SCH ×3 (07:30→16:23)
[2020-12-12] MEDS: CARVEDILOL 3.125 MG TABLET. PO SCH ×2 (08:00→16:22)
[2020-12-12] MEDS: LISINOPRIL 5 MG TABLET. PO SCH (09:00)
[2020-12-12 11:00] VITALS: BP 87/49
[2020-12-12] MEDS: levETIRAcetam 500 MG TABLET PO SCH ×2 (11:25→20:51)
[2020-12-12] MEDS: DULoxetine HCL 30 MG CAPSULE.DR PO SCH ×2 (11:25→20:51)
[2020-12-12] MEDS: ENOXAPARIN 40 MG/0.4 ML SYRINGE. SQ SCH (11:26)
[2020-12-12] MEDS: CETIRIZINE HCL 10 MG TABLET. PO SCH (11:26)
[2020-12-12] MEDS: DICLOFENAC SODIUM 1% TOPICAL GEL 100GM TUBE. TP SCH ×4 (11:35→20:52)
[2020-12-12] MEDS: MORPHINE SULFATE 4 MG/ML INJ. IV PRN (11:40)
--- NOTE | 2020-12-12 12:25 | PDOC ---
Date of Service: DATE: 12/12/20 TIME: 12:19 Subjective: Subjective: Her back itches and she'd like some Benadryl cream - doesn't really want to sit up to let me look at her back but she doesn't think there's a rash. Tolerating diet but wants me know tell the kitchen she drinks tea and not coffee. We discussed EGD results and need to continue PPI. As in the past, she says "I have four ulcers" and also asks about "my gallstone." Reports ongoing abd pain. Objective: Vital Signs: Vital Signs Date Time Temp Pulse Resp B/P (MAP) Pulse Ox O2 Delivery O2 Flow Rate FiO2 12/12/20 11:40 93 Nasal Cannula 2.0 12/12/20 11:00 98.2 76 18 87/49 (62) 98.2 Imaging: EGD E--normal. GEJ at 35cm. G--Large HH. Prepyloric deformity. Biopsies antrum re: H.pylori. D--~1cm ulcer anterior wall bulb with neighboring stricture; able to pass into second portion with small caliber scope (Don't think ERCP scope would fit). IMP: DU HH REC: PPI daily. F/u biopsies. OK to feed. PE: GEN: NAD LUNGS: CTAB HEART: RRR ABD: soft, does not seem tender NEURO/PSYCH: A & O 3, forgetful A/P: Epigastric pain BLUE Large HH, DU w/ stricture (required small scope) ?choledocholithiasis - LFTs always WNL, would be unlikely to pass ERCP scope considering stricture -- Apparently tolerating diet. Pain seems improved. She's forgetful. Change from H2 deepthi to PPI - need Rx on DC. Discharge per primary. Discussed her request for tea and concern re: back itching w/ nurse. Justicifation of Admission Dx: Justifications for Admission: Justification of Admission Dx: Yes MELONIE CASTANO Dec 12, 2020 12:25
--- NOTE | 2020-12-12 12:30 | NUR ---
SW following. Discussed with RN, pt from home alone, does not use oxygen at home. OT recommending home health - PT unable to work with pt due to BP. SW to discuss home health with patient. SW will continue to follow.
[2020-12-12 15:00] VITALS: BP 100/52
--- NOTE | 2020-12-12 16:15 | PDOC ---
[employer] PROGRESS NOTE Date of Service DOS: DATE: 12/12/20 TIME: 16:13 Chief Complaint Chief Complaint Choledocholithiasis Acute abdominal pain History of fibromyalgia History of depression History of GERD and peptic ulcer disease Plan: Consultation placed to GI IV pain management Famotidine GI prophylaxis Resume home medications FEN - Cardiac diet PPX - Lovenox DNR Dispo - inpatient for above Advance Care Planning: Total time spent [id number] with patient 16 minutes in discussion with goals of care, comfort care, end-of-life care, pain management, code status; patient names her daughter (Carol Maya) as surrogate decision- maker. History of Present Illness History of Present Illness This is a 72-year-old female with past medical history of cholelithiasis, who presents to the ED with complaints of epigastric abdominal pain. She has a history of similar pain over the past months, recently been admitted on 11/27/2020 and again on 12/06/2020 for similar complaints. She was seen by GI at that time and recommended ERCP or EUS in the very near future. These have been arranged with Dr. Horowitz with GI. Pain acutely worsened last night, so she presented to the ED. Labs in the ED showed WBC 9.0, hemoglobin 10.2, hematocrit 31.0, albumin 2.4. Acute abdomen series showed constipation. Will admit patient for further medical management. 12/11/2020: Afebrile, no events overnight. Still with abdominal pain, but denies nausea or vomiting. LFTs largely within normal limits, certainly not significantly elevated like expected with choledocholithiasis. Per GI, EGD today to search for other causes of her epigastric pain; however ultimately may need ERCP. 12/12/2020: Afebrile. Patient reports some improvement in her abdominal pain. Discussed EGD results that show hiatal hernia, 1 cm duodenal ulcer; antral biopsies were taken. Discussed concerns for possible H. pylori with patient. Continue with PPIs daily and follow biopsy results. Vitals/I&O Vitals/I&O: Vital Signs Date Time Temp Pulse Resp B/P (MAP) Pulse Ox O2 Delivery O2 Flow Rate FiO2 12/12/20 12:42 93 Nasal Cannula 2.0 12/12/20 11:00 98.2 76 18 87/49 (62) 98.2 I & O 12/11/20 12/11/20 12/12/20 15:00 23:00 07:00 Intake Total 200 ml Balance 200 ml Physical Exam General: Alert, Oriented X3, Cooperative, mild distress Heart: Regular rate Lungs: Clear Abdomen: Soft, Other (Epigastric abdominal tenderness) Extremities: No clubbing, No cyanosis Skin: No rashes, No breakdown Assessment and Plan Assessmemt and Plan Problems Medical Problems: (1) Abdominal pain Status: Acute Comment Review of Relevant I have reviewed the following items anurag (where applicable) has been applied. Justifications for Admission Other Justification Cholelithiasis ROSS LIZARRAGA MD Dec 12, 2020 16:14
[2020-12-12] MEDS: DIPHENHYDRAMINE/ZINC ACETATE 2%/0.1% TOPICAL CREAM 28GM TUBE. TP PRN ×2 (17:13→20:52)
[2020-12-12 19:00] VITALS: BP 94/52
[2020-12-12] MEDS: traZODone 50 MG TABLET. PO SCH (20:51)
[2020-12-12] MEDS: HYDROcodone/APAP 5/325MG 1 TAB TABLET PO PRN (20:51)
[2020-12-12] MEDS: QUEtiapine 25 MG TABLET. PO SCH (20:51)
[2020-12-12] MEDS: ATORVASTATIN CALCIUM 10 MG TABLET. PO SCH (20:51)
[2020-12-12 23:00] VITALS: BP 112/61
[2020-12-13 03:00] VITALS: BP 116/63
[2020-12-13] MEDS: HYDROcodone/APAP 5/325MG 1 TAB TABLET PO PRN ×2 (05:20→23:41)
[2020-12-13] MEDS: SUCRALFATE 1 GM TABLET. PO SCH ×2 (06:39→18:01)
[2020-12-13] MEDS: PANTOPRAZOLE 40 MG TABLET.DR. PO SCH (06:39)
[2020-12-13 07:00] VITALS: BP 109/56
[2020-12-13] MEDS: CARVEDILOL 3.125 MG TABLET. PO SCH ×2 (08:00→17:00)
[2020-12-13] MEDS: LISINOPRIL 5 MG TABLET. PO SCH (09:00)
[2020-12-13] MEDS: POLYETHYLENE GLYCOL 3350 17 GM PACKET. PO SCH (09:00)
[2020-12-13] MEDS: DULoxetine HCL 30 MG CAPSULE.DR PO SCH ×2 (10:01→20:49)
[2020-12-13] MEDS: levETIRAcetam 500 MG TABLET PO SCH ×2 (10:01→20:48)
[2020-12-13] MEDS: CETIRIZINE HCL 10 MG TABLET. PO SCH (10:01)
[2020-12-13] MEDS: ENOXAPARIN 40 MG/0.4 ML SYRINGE. SQ SCH (10:04)
[2020-12-13] MEDS: DICLOFENAC SODIUM 1% TOPICAL GEL 100GM TUBE. TP SCH ×4 (10:05→20:49)
[2020-12-13] MEDS: DIPHENHYDRAMINE/ZINC ACETATE 2%/0.1% TOPICAL CREAM 28GM TUBE. TP PRN (10:05)
[2020-12-13 11:00] VITALS: BP 98/56
--- NOTE | 2020-12-13 13:29 | PDOC ---
[employer] PROGRESS NOTE Date of Service DOS: DATE: 12/13/20 TIME: 13:28 Chief Complaint Chief Complaint Choledocholithiasis Acute abdominal pain History of fibromyalgia History of depression History of GERD and peptic ulcer disease Plan: Consultation placed to GI IV pain management Famotidine GI prophylaxis Resume home medications FEN - Cardiac diet PPX - Lovenox DNR Dispo - inpatient for above Advance Care Planning: Total time spent [id number] with patient 16 minutes in discussion with goals of care, comfort care, end-of-life care, pain management, code status; patient names her daughter (Carol Maya) as surrogate decision- maker. History of Present Illness History of Present Illness This is a 72-year-old female with past medical history of cholelithiasis, who presents to the ED with complaints of epigastric abdominal pain. She has a history of similar pain over the past months, recently been admitted on 11/27/2020 and again on 12/06/2020 for similar complaints. She was seen by GI at that time and recommended ERCP or EUS in the very near future. These have been arranged with Dr. Horowitz with GI. Pain acutely worsened last night, so she presented to the ED. Labs in the ED showed WBC 9.0, hemoglobin 10.2, hematocrit 31.0, albumin 2.4. Acute abdomen series showed constipation. Will admit patient for further medical management. 12/11/2020: Afebrile, no events overnight. Still with abdominal pain, but denies nausea or vomiting. LFTs largely within normal limits, certainly not significantly elevated like expected with choledocholithiasis. Per GI, EGD today to search for other causes of her epigastric pain; however ultimately may need ERCP. 12/12/2020: Afebrile. Patient reports some improvement in her abdominal pain. Discussed EGD results that show hiatal hernia, 1 cm duodenal ulcer; antral biopsies were taken. Discussed concerns for possible H. pylori with patient. Continue with PPIs daily and follow biopsy results. 12/13/2020: No acute events overnight, afebrile. Pending results of antral biopsies. Continue PPI. Vitals/I&O Vitals/I&O: Vital Signs Date Time Temp Pulse Resp B/P (MAP) Pulse Ox O2 Delivery O2 Flow Rate FiO2 12/13/20 11:00 98.0 75 18 98/56 (70) 95 Nasal Cannula 2.0 98.0 I & O 12/12/20 12/12/20 12/13/20 15:00 23:00 07:00 Intake Total 220 ml 600 ml 50 ml Output Total 100 ml Balance 220 ml 500 ml 50 ml Physical Exam General: Alert, Oriented X3, Cooperative, No acute distress Heart: Regular rate Lungs: Clear Abdomen: Soft, Other (Epigastric abdominal tenderness) Extremities: No clubbing, No cyanosis Skin: No rashes, No breakdown Assessment and Plan Assessmemt and Plan Problems Medical Problems: (1) Abdominal pain Status: Acute Comment Review of Relevant I have reviewed the following items anurag (where applicable) has been applied. Medications: Current Medications Medications (Trade) Dose Ordered Sig/Lucas Route PRN Reason Start Time Stop Time Status Last Admin Dose Admin Sucralfate (Carafate) 1 gm BIDAC PO 12/12/20 16:30 12/13/20 06:39 Pantoprazole Sodium (Protonix) 40 mg DAILYAC PO 12/13/20 07:30 12/13/20 06:39 Zinc Acetate/ Diphenhydramine (Benadryl Topical) 1 jennifer PRN QID PRN TP itching 12/12/20 16:45 12/13/20 10:05 Justifications for Admission Other Justification Cholelithiasis ROSS LIZARRAGA MD Dec 13, 2020 13:29
--- NOTE | 2020-12-13 14:36 | PDOC ---
G I PROGRESS NOTE Subjective Denies GI complaints. Stomach feels "great". Objective Cleaned her lunch plate. Physical Exam Lungs clear. RRR Abdomen soft, not tender. Review of Relevant I have reviewed the following items anurag (where applicable) has been applied. Vitals/I & O Vital Sign - Last 24 Hours 12/12/20 12/12/20 12/12/20 12/12/20 15:00 16:22 19:00 19:45 Temp 98.0 98.3 98.0 98.3 Pulse 70 70 71 Resp 18 18 B/P (MAP) 100/52 (68) 100/52 94/52 (66) Pulse Ox 93 91 O2 Delivery Nasal Cannula Nasal Cannula Nasal Cannula O2 Flow Rate 2.0 2.0 2.0 12/12/20 12/12/20 12/12/20 12/13/20 20:51 21:21 23:00 03:00 Temp 97.9 98.0 97.9 98.0 Pulse 78 64 Resp 16 16 18 18 B/P (MAP) 112/61 (78) 116/63 (80) Pulse Ox 92 92 O2 Delivery Nasal Cannula Nasal Cannula Nasal Cannula Nasal Cannula O2 Flow Rate 2.0 2.0 2.0 2.0 12/13/20 12/13/20 12/13/20 12/13/20 05:20 05:50 07:00 08:00 Temp 97.6 97.6 Pulse 59 59 Resp 16 16 18 B/P (MAP) 109/56 (73) 109/56 Pulse Ox 92 O2 Delivery Room Air Nasal Cannula Nasal Cannula O2 Flow Rate 2.0 2.0 12/13/20 12/13/20 09:00 11:00 Temp 98.0 98.0 Pulse 59 75 Resp 18 B/P (MAP) 109/56 98/56 (70) Pulse Ox 95 O2 Delivery Nasal Cannula O2 Flow Rate 2.0 Intake and Output 12/12/20 12/12/20 12/13/20 15:00 23:00 07:00 Intake Total 220 ml 600 ml 50 ml Output Total 100 ml Balance 220 ml 500 ml 50 ml Problem List Problems Medical Problems: (1) Abdominal pain Status: Acute Assessment DU, cause of pain? Now pain-free. Duodenal stricture; would seem to preclude ERCP unless more evidence for issue with biliary system. Plan of Care Note Continue PPI. Await gastric biopsies. Available over the weekend prn. Justicifation of Admission Dx: Justifications for Admission: Justification of Admission Dx: Yes REGI FLORES MD Dec 13, 2020 14:35
[2020-12-13 15:00] VITALS: BP 103/60
--- NOTE | 2020-12-13 16:00 | NUR ---
SW following. Discussed with RN, therapy recommending home health. MARIAH met with pt, pt agreeable but understands it may not be feasible due to her insurance. Choice of vendor form completed. MARIAH faxed referral to [facility] (ph: [phone], fax: [phone]), awaiting acceptance decision. MARIAH will continue to follow.
[2020-12-13 19:00] VITALS: BP 122/81
[2020-12-13] MEDS: ATORVASTATIN CALCIUM 10 MG TABLET. PO SCH (20:48)
[2020-12-13] MEDS: traZODone 50 MG TABLET. PO SCH (20:48)
[2020-12-13] MEDS: QUEtiapine 25 MG TABLET. PO SCH (20:48)
[2020-12-13] MEDS ORDERED: IPRATRPIUM/ALBUTEROL 0.5/2.5MG 3 ML NEBU. NEB ONE (23:00)
[2020-12-13 23:03] VITALS: BP 143/70
[2020-12-14 03:22] VITALS: BP 104/57
[2020-12-14 07:00] VITALS: BP 131/65
[2020-12-14] MEDS: POLYETHYLENE GLYCOL 3350 17 GM PACKET. PO SCH (08:57)
[2020-12-14] MEDS: levETIRAcetam 500 MG TABLET PO SCH ×2 (09:00→20:24)
[2020-12-14] MEDS: ENOXAPARIN 40 MG/0.4 ML SYRINGE. SQ SCH (09:00)
[2020-12-14] MEDS: PANTOPRAZOLE 40 MG TABLET.DR. PO SCH (09:00)
[2020-12-14] MEDS: CETIRIZINE HCL 10 MG TABLET. PO SCH (09:01)
[2020-12-14] MEDS: SUCRALFATE 1 GM TABLET. PO SCH ×2 (09:01→16:30)
[2020-12-14] MEDS: CARVEDILOL 3.125 MG TABLET. PO SCH ×2 (09:01→16:30)
[2020-12-14] MEDS: LISINOPRIL 5 MG TABLET. PO SCH (09:01)
[2020-12-14] MEDS: DULoxetine HCL 30 MG CAPSULE.DR PO SCH ×2 (09:02→20:24)
[2020-12-14] MEDS: DICLOFENAC SODIUM 1% TOPICAL GEL 100GM TUBE. TP SCH ×4 (09:07→20:25)
--- NOTE | 2020-12-14 09:24 | PDOC ---
[employer] PROGRESS NOTE Date of Service DOS: DATE: 12/14/20 TIME: 09:23 Chief Complaint Chief Complaint Choledocholithiasis Acute abdominal pain History of fibromyalgia History of depression History of GERD and peptic ulcer disease Plan: Consultation placed to GI IV pain management Famotidine GI prophylaxis Resume home medications FEN - Cardiac diet PPX - Lovenox DNR Dispo - inpatient for above Advance Care Planning: Total time spent [id number] with patient 16 minutes in discussion with goals of care, comfort care, end-of-life care, pain management, code status; patient names her daughter (Carol Maya) as surrogate decision- maker. History of Present Illness History of Present Illness This is a 75-year-old female with past medical history of cholelithiasis, who presents to the ED with complaints of epigastric abdominal pain. She has a history of similar pain over the past months, recently been admitted on 11/27/2020 and again on 12/06/2020 for similar complaints. She was seen by GI at that time and recommended ERCP or EUS in the very near future. These have been arranged with Dr. Horowitz with GI. Pain acutely worsened last night, so she presented to the ED. Labs in the ED showed WBC 9.0, hemoglobin 10.2, hematocrit 31.0, albumin 2.4. Acute abdomen series showed constipation. Will admit patient for further medical management. 12/11/2020: Afebrile, no events overnight. Still with abdominal pain, but denies nausea or vomiting. LFTs largely within normal limits, certainly not significantly elevated like expected with choledocholithiasis. Per GI, EGD today to search for other causes of her epigastric pain; however ultimately may need ERCP. 12/12/2020: Afebrile. Patient reports some improvement in her abdominal pain. Discussed EGD results that show hiatal hernia, 1 cm duodenal ulcer; antral biopsies were taken. Discussed concerns for possible H. pylori with patient. Continue with PPIs daily and follow biopsy results. 12/13/2020: No acute events overnight, afebrile. Pending results of antral biopsies. Continue PPI. 12/14/2020: Afebrile. Some complaints of chest congestion with sputum production overnight. Will provide guaifenesin as needed. Denies abdominal pain. Awaiting gastric biopsy results. Will continue PPI. Vitals/I&O Vitals/I&O: Vital Signs Date Time Temp Pulse Resp B/P (MAP) Pulse Ox O2 Delivery O2 Flow Rate FiO2 12/14/20 09:01 67 131/65 12/14/20 07:35 Nasal Cannula 2.0 12/14/20 07:00 98.2 18 94 98.2 I & O 12/13/20 12/13/20 12/14/20 15:00 23:00 07:00 Output Total 0 ml Balance 0 ml Physical Exam General: Alert, Oriented X3, Cooperative, No acute distress Heart: Regular rate Lungs: Clear Abdomen: Soft, Other (Epigastric abdominal tenderness) Extremities: No clubbing, No cyanosis Skin: No rashes, No breakdown Assessment and Plan Assessmemt and Plan Problems Medical Problems: (1) Abdominal pain Status: Acute Comment Review of Relevant I have reviewed the following items anurag (where applicable) has been applied. Medications: Current Medications Medications (Trade) Dose Ordered Sig/Lucas Route PRN Reason Start Time Stop Time Status Last Admin Dose Admin Albuterol/ Ipratropium (Duoneb) 3 ml 1X ONCE NEB 12/13/20 23:00 12/13/20 23:01 DC 12/13/20 23:00 Justifications for Admission Other Justification Cholelithiasis ROSS LIZARRAGA MD Dec 14, 2020 09:24
[2020-12-14 11:29] VITALS: BP 113/62
[2020-12-14] MEDS ORDERED: guaiFENesin ORAL 200 MG/10 ML LIQUID. PO PRN (11:30)
[2020-12-14 15:00] VITALS: BP 124/66
[2020-12-14 19:00] VITALS: BP 139/64
[2020-12-14] MEDS: traZODone 50 MG TABLET. PO SCH (20:23)
[2020-12-14] MEDS: ATORVASTATIN CALCIUM 10 MG TABLET. PO SCH (20:24)
[2020-12-14] MEDS: QUEtiapine 25 MG TABLET. PO SCH (20:24)
[2020-12-14] MEDS: HYDROcodone/APAP 5/325MG 1 TAB TABLET PO PRN (20:25)
[2020-12-14 23:29] VITALS: BP 122/72
[2020-12-15 03:10] VITALS: BP 121/70
[2020-12-15] MEDS: SUCRALFATE 1 GM TABLET. PO SCH ×2 (05:49→17:30)
[2020-12-15 07:00] VITALS: BP 117/70
--- NOTE | 2020-12-15 09:16 | PDOC ---
[employer] PROGRESS NOTE Date of Service DOS: DATE: 12/15/20 TIME: 09:16 Chief Complaint Chief Complaint A/P: Choledocholithiasis Acute abdominal pain History of fibromyalgia History of depression History of GERD and peptic ulcer disease Hypoxia - now on O2 Plan: Consultation placed to GI IV pain management Famotidine GI prophylaxis Resume home medications FEN - Cardiac diet PPX - Lovenox DNR Dispo - inpatient for above Advance Care Planning: Total time spent [id number] with patient 16 minutes in discussion with goals of care, comfort care, end-of-life care, pain management, code status; patient names her daughter (Carol Maya) as surrogate decision- maker. History of Present Illness History of Present Illness Ms Orozco is a 75-year-old female with past medical history of cholelithiasis, who presents to the ED with complaints of epigastric abdominal pain. She has a history of similar pain over the past months, recently been admitted on 11/27/2020 and again on 12/06/2020 for similar complaints. She was seen by GI at that time and recommended ERCP or EUS in the very near future. These have been arranged with Dr. Horowitz with GI. Pain acutely worsened last night, so she presented to the ED. Labs in the ED showed WBC 9.0, hemoglobin 10.2, hematocrit 31.0, albumin 2.4. Acute abdomen series showed constipation. Will admit patient for further medical management. 12/11/2020: Afebrile, no events overnight. Still with abdominal pain, but denies nausea or vomiting. LFTs largely within normal limits, certainly not significantly elevated like expected with choledocholithiasis. Per GI, EGD today to search for other causes of her epigastric pain; however ultimately may need ERCP. 12/12/2020: Afebrile. Patient reports some improvement in her abdominal pain. Discussed EGD results that show hiatal hernia, 1 cm duodenal ulcer; antral biopsies were taken. Discussed concerns for possible H. pylori with patient. Continue with PPIs daily and follow biopsy results. 12/13/2020: No acute events overnight, afebrile. Pending results of antral biopsies. Continue PPI. 12/14/2020: Afebrile. Some complaints of chest congestion with sputum production overnight. Will provide guaifenesin as needed. Denies abdominal pain. Awaiting gastric biopsy results. Will continue PPI. Afebrile. Placed on O2 overnight with some congestion. She is complaining of constipation. No abdominal pain she is seen eating. Of great concern is she has been discharged 4 times in the hospital and returned within a day or 2 with similar symptoms. She is amenable to awaiting biopsy results in getting her constipation treated chest radiograph for her new hypoxia. Vitals/I&O Vitals/I&O: Vital Signs Date Time Temp Pulse Resp B/P (MAP) Pulse Ox O2 Delivery O2 Flow Rate FiO2 12/15/20 07:00 98.3 72 18 117/70 (86) 94 Room Air 98.3 12/14/20 20:55 2.0 I & O 12/14/20 12/14/20 12/15/20 15:00 23:00 07:00 Intake Total 300 ml 240 ml Balance 300 ml 240 ml Physical Exam General: Alert, Oriented X3, Cooperative, No acute distress Heart: Regular rate Lungs: Clear Abdomen: Soft, Other (Epigastric abdominal tenderness) Extremities: No clubbing, No cyanosis Skin: No rashes, No breakdown Assessment and Plan Assessmemt and Plan Problems Medical Problems: (1) Abdominal pain Status: Acute Comment Review of Relevant I have reviewed the following items anurag (where applicable) has been applied. Justifications for Admission Other Justification Cholelithiasis DENIA BRODY MD Dec 15, 2020 09:16
[2020-12-15] MEDS: POLYETHYLENE GLYCOL 3350 17 GM PACKET. PO SCH (09:33)
[2020-12-15] MEDS: DULoxetine HCL 30 MG CAPSULE.DR PO SCH ×2 (09:33→20:45)
[2020-12-15] MEDS: PANTOPRAZOLE 40 MG TABLET.DR. PO SCH (09:33)
[2020-12-15] MEDS: CARVEDILOL 3.125 MG TABLET. PO SCH ×2 (09:33→17:30)
[2020-12-15] MEDS: levETIRAcetam 500 MG TABLET PO SCH ×2 (09:34→20:45)
[2020-12-15] MEDS: LISINOPRIL 5 MG TABLET. PO SCH (09:34)
[2020-12-15] MEDS: ENOXAPARIN 40 MG/0.4 ML SYRINGE. SQ SCH (09:34)
[2020-12-15] MEDS: CETIRIZINE HCL 10 MG TABLET. PO SCH (09:34)
[2020-12-15] MEDS: DICLOFENAC SODIUM 1% TOPICAL GEL 100GM TUBE. TP SCH ×4 (09:39→20:50)
[2020-12-15 11:00] VITALS: BP 114/68
[2020-12-15] MEDS ORDERED: SENNOSIDES/DOCUSATE 8.6/50MG TABLET. PO PRN (14:00)
[2020-12-15] MEDS: HYDROcodone/APAP 5/325MG 1 TAB TABLET PO PRN (14:03)
[2020-12-15 15:00] VITALS: BP 124/74
--- NOTE | 2020-12-15 15:25 | RAD ---
Exam Date: 12/15/2020 2:01 PM XR CHEST 1V Indication: Reason: Hypoxia, cough / Spl. Instructions: / History: . Comparison: December 07, 2020 FINDINGS/ IMPRESSION: Lung volumes are low. Left basilar and perihilar subsegmental atelectasis is seen. Small right pleu ral effusion suspected. No pneumothorax. The cardiac silhouette and pulmonary vasculature are within normal limits. Electronically signed by: [place] Jc MD (12/15/2020 3:22 PM) [facility]
--- NOTE | 2020-12-15 17:00 | NUR ---
Pt instructed on IS, pt demonstrated understanding. and able to get it to 1000.
[2020-12-15 19:00] VITALS: BP 83/44
[2020-12-15] MEDS: PSYLLIUM HUSK (SUGAR FREE) 1 PKT PACKET PO SCH (20:45)
[2020-12-15] MEDS: QUEtiapine 25 MG TABLET. PO SCH (20:45)
[2020-12-15] MEDS: ATORVASTATIN CALCIUM 10 MG TABLET. PO SCH (20:45)
[2020-12-15] MEDS: traZODone 50 MG TABLET. PO SCH (20:45)
[2020-12-15] MEDS: DIPHENHYDRAMINE/ZINC ACETATE 2%/0.1% TOPICAL CREAM 28GM TUBE. TP PRN (20:51)
[2020-12-15] MEDS ORDERED: ALBUMIN HUMAN 5% 500 ML IV ONE (21:00)
[2020-12-15 23:00] VITALS: BP 111/63
[2020-12-16 03:00] VITALS: BP 130/76
[2020-12-16 05:43] LABS: BASO # 0.1 x10^3/uL (0.0-0.2); BASO % 1 % (0-3); EOS # 0.2 x10^3/uL (0.0-0.7); EOS % 4 % (0-3); HEMATOCRIT 31.5 % (36.0-47.0); LYMPH # 1.7 x10^3/uL (1.0-4.8); LYMPH % 24 % (24-48); MEAN CORPUSCULAR HEMOGLOBIN 27 pg (25-35); MEAN CORPUSCULAR HGB CONC 32 g/dL (31-37); MEAN CORPUSCULAR VOLUME 85 fL (79-100); MONO # 0.7 x10^3/uL (0.0-1.1); MONO % 10 % (0-9); NEUT # 4.4 x10^3/uL (1.8-7.7); NEUT % 62 % (31-73); PLATELET COUNT 328 x10^3/uL (140-400); RED BLOOD COUNT 3.72 x10^6/uL (3.50-5.40); RED CELL DISTRIBUTION WIDTH 16.6 % (11.5-14.5); WHITE BLOOD COUNT 7.1 x10^3/uL (4.0-11.0)
[2020-12-16] MEDS: SUCRALFATE 1 GM TABLET. PO SCH ×2 (05:43→16:39)
[2020-12-16 06:19] LABS: ALBUMIN 2.8 g/dL (3.4-5.0); ALBUMIN/GLOBULIN RATIO 0.9 (1.0-1.7); CREATININE 0.8 mg/dL (0.6-1.0); GFR 70.3; MAGNESIUM 2.1 mg/dL (1.8-2.4); POTASSIUM 4.3 mmol/L (3.5-5.1); TOTAL BILIRUBIN 0.2 mg/dL (0.2-1.0); TOTAL PROTEIN 5.9 g/dL (6.4-8.2)
[2020-12-16 07:00] VITALS: BP 142/79
[2020-12-16] MEDS: PANTOPRAZOLE 40 MG TABLET.DR. PO SCH (08:31)
[2020-12-16] MEDS: POLYETHYLENE GLYCOL 3350 17 GM PACKET. PO SCH (08:31)
[2020-12-16] MEDS: CARVEDILOL 3.125 MG TABLET. PO SCH ×2 (08:32→16:39)
[2020-12-16] MEDS: levETIRAcetam 500 MG TABLET PO SCH ×2 (08:32→20:09)
[2020-12-16] MEDS: CETIRIZINE HCL 10 MG TABLET. PO SCH (08:32)
[2020-12-16] MEDS: DULoxetine HCL 30 MG CAPSULE.DR PO SCH ×2 (08:32→20:09)
[2020-12-16] MEDS: LISINOPRIL 5 MG TABLET. PO SCH (08:32)
[2020-12-16] MEDS: ENOXAPARIN 40 MG/0.4 ML SYRINGE. SQ SCH (08:33)
[2020-12-16] MEDS: DICLOFENAC SODIUM 1% TOPICAL GEL 100GM TUBE. TP SCH ×4 (08:34→20:10)
--- NOTE | 2020-12-16 10:03 | PDOC ---
Date of Service: DATE: 12/16/20 TIME: 09:58 Subjective: Subjective: "Too tired" to eat this morning but says ate without issue yesterday. "A little" abdominal pain but getting better. Has stooled. Wants to go home. Doesn't have questions for me. Objective: Objective: Stool charted 12/16. D/w nurse - ?DC today - family c/o drowsiness. Vital Signs: Vital Signs Date Time Temp Pulse Resp B/P (MAP) Pulse Ox O2 Delivery O2 Flow Rate FiO2 12/16/20 08:32 63 142/79 12/16/20 07:00 97.8 16 93 Room Air 97.8 12/15/20 07:45 2.0 Labs: Laboratory Tests Test 12/16/20 04:58 White Blood Count 7.1 x10^3/uL Red Blood Count 3.72 x10^6/uL Hemoglobin 10.0 g/dL Hematocrit 31.5 % Mean Corpuscular Volume 85 fL Mean Corpuscular Hemoglobin 27 pg Mean Corpuscular Hemoglobin Concent 32 g/dL Red Cell Distribution Width 16.6 % Platelet Count 328 x10^3/uL Neutrophils (%) (Auto) 62 % Lymphocytes (%) (Auto) 24 % Monocytes (%) (Auto) 10 % Eosinophils (%) (Auto) 4 % Basophils (%) (Auto) 1 % Neutrophils # (Auto) 4.4 x10^3/uL Lymphocytes # (Auto) 1.7 x10^3/uL Monocytes # (Auto) 0.7 x10^3/uL Eosinophils # (Auto) 0.2 x10^3/uL Basophils # (Auto) 0.1 x10^3/uL Sodium Level 146 mmol/L Potassium Level 4.3 mmol/L Chloride Level 109 mmol/L Carbon Dioxide Level 28 mmol/L Anion Gap 9 Blood Urea Nitrogen 12 mg/dL Creatinine 0.8 mg/dL Estimated GFR (Cockcroft-Gault) 70.3 BUN/Creatinine Ratio 15 Glucose Level 84 mg/dL Calcium Level 9.0 mg/dL Magnesium Level 2.1 mg/dL Total Bilirubin 0.2 mg/dL Aspartate Amino Transf (AST/SGOT) 15 U/L Alanine Aminotransferase (ALT/SGPT) 6 U/L Alkaline Phosphatase 49 U/L Total Protein 5.9 g/dL Albumin 2.8 g/dL Albumin/Globulin Ratio 0.9 PE: GEN: NAD - was sleeping LUNGS: CTAB HEART: RRR ABD: NABS, S/ND/NT NEURO/PSYCH: lethargic A/P: Epigastric pain - improved BLUE - stable Large HH, DU w/ stricture (required small scope) - path still pending ?choledocholithiasis - LFTs never abnormal, ERCP probably not possible considering stricture ?dementia -- DC per primary on PPI. Justicifation of Admission Dx: Justifications for Admission: Justification of Admission Dx: Yes MELONIE CASTANO Dec 16, 2020 10:03
[2020-12-16 11:00] VITALS: BP 121/70
--- NOTE | 2020-12-16 13:21 | PDOC ---
[employer] PROGRESS NOTE Date of Service DOS: DATE: 12/16/20 TIME: 13:18 Chief Complaint Chief Complaint A/P: Choledocholithiasis Acute abdominal pain History of fibromyalgia History of depression History of GERD and peptic ulcer disease Hypoxia - now on O2 Plan: Consultation placed to GI IV pain management Famotidine GI prophylaxis Resume home medications FEN - Cardiac diet PPX - Lovenox DNR Dispo - inpatient for above Advance Care Planning: Total time spent [id number] with patient 16 minutes in discussion with goals of care, comfort care, end-of-life care, pain management, code status; patient names her daughter (Carol Maya) as surrogate decision- maker. History of Present Illness History of Present Illness Ms Orozco is a 75-year-old female with past medical history of cholelithiasis, who presents to the ED with complaints of epigastric abdominal pain. She has a history of similar pain over the past months, recently been admitted on 11/27/2020 and again on 12/06/2020 for similar complaints. She was seen by GI at that time and recommended ERCP or EUS in the very near future. These have been arranged with Dr. Horowitz with GI. Pain acutely worsened last night, so she presented to the ED. Labs in the ED showed WBC 9.0, hemoglobin 10.2, hematocrit 31.0, albumin 2.4. Acute abdomen series showed constipation. Will admit patient for further medical management. 12/11/2020: Afebrile, no events overnight. Still with abdominal pain, but denies nausea or vomiting. LFTs largely within normal limits, certainly not significantly elevated like expected with choledocholithiasis. Per GI, EGD today to search for other causes of her epigastric pain; however ultimately may need ERCP. 12/12/2020: Afebrile. Patient reports some improvement in her abdominal pain. Discussed EGD results that show hiatal hernia, 1 cm duodenal ulcer; antral biopsies were taken. Discussed concerns for possible H. pylori with patient. Continue with PPIs daily and follow biopsy results. 12/13/2020: No acute events overnight, afebrile. Pending results of antral biopsies. Continue PPI. 12/14/2020: Afebrile. Some complaints of chest congestion with sputum production overnight. Will provide guaifenesin as needed. Denies abdominal pain. Awaiting gastric biopsy results. Will continue PPI. 12/15/20 Afebrile. Placed on O2 overnight with some congestion. She is complaining of constipation. No abdominal pain she is seen eating. Of great concern is she has been discharged 4 times in the hospital and returned within a day or 2 with similar symptoms. She is amenable to awaiting biopsy results in getting her constipation treated chest radiograph for her new hypoxia. No acute events overnight. Patient seen and examined bedside. I have DC'd her trazodone for she does not take this as outpatient anymore. She is a bit weak and did not eat breakfast. For this reason, I will observe today and wait until she has an adequate BM before DC. We are also awaiting her H [place] Bx results in the meantime. > 50% time spent in patient chart, labs, and image review and discussion with RN and SW Vitals/I&O Vitals/I&O: Vital Signs Date Time Temp Pulse Resp B/P (MAP) Pulse Ox O2 Delivery O2 Flow Rate FiO2 12/16/20 11:00 97.7 68 15 121/70 (87) 91 Room Air 97.7 12/15/20 07:45 2.0 I & O 12/15/20 12/15/20 12/16/20 14:59 22:59 06:59 Intake Total 350 ml 700 ml Balance 350 ml 700 ml Physical Exam General: Alert, Oriented X3, Cooperative, No acute distress Heart: Regular rate Lungs: Clear Abdomen: Soft, Other (Epigastric abdominal tenderness) Extremities: No clubbing, No cyanosis Skin: No rashes, No breakdown Labs Labs: Laboratory Tests Test 12/16/20 04:58 White Blood Count 7.1 x10^3/uL (4.0-11.0) Red Blood Count 3.72 x10^6/uL (3.50-5.40) Hemoglobin 10.0 g/dL (12.0-15.5) Hematocrit 31.5 % (36.0-47.0) Mean Corpuscular Volume 85 fL (79-100) Mean Corpuscular Hemoglobin 27 pg (25-35) Mean Corpuscular Hemoglobin Concent 32 g/dL (31-37) Red Cell Distribution Width 16.6 % (11.5-14.5) Platelet Count 328 x10^3/uL (140-400) Neutrophils (%) (Auto) 62 % (31-73) Lymphocytes (%) (Auto) 24 % (24-48) Monocytes (%) (Auto) 10 % (0-9) Eosinophils (%) (Auto) 4 % (0-3) Basophils (%) (Auto) 1 % (0-3) Neutrophils # (Auto) 4.4 x10^3/uL (1.8-7.7) Lymphocytes # (Auto) 1.7 x10^3/uL (1.0-4.8) Monocytes # (Auto) 0.7 x10^3/uL (0.0-1.1) Eosinophils # (Auto) 0.2 x10^3/uL (0.0-0.7) Basophils # (Auto) 0.1 x10^3/uL (0.0-0.2) Sodium Level 146 mmol/L (136-145) Potassium Level 4.3 mmol/L (3.5-5.1) Chloride Level 109 mmol/L (98-107) Carbon Dioxide Level 28 mmol/L (21-32) Anion Gap 9 (6-14) Blood Urea Nitrogen 12 mg/dL (7-20) Creatinine 0.8 mg/dL (0.6-1.0) Estimated GFR (Cockcroft-Gault) 70.3 BUN/Creatinine Ratio 15 (6-20) Glucose Level 84 mg/dL (70-99) Calcium Level 9.0 mg/dL (8.5-10.1) Magnesium Level 2.1 mg/dL (1.8-2.4) Total Bilirubin 0.2 mg/dL (0.2-1.0) Aspartate Amino Transf (AST/SGOT) 15 U/L (15-37) Alanine Aminotransferase (ALT/SGPT) 6 U/L (14-59) Alkaline Phosphatase 49 U/L (46-116) Total Protein 5.9 g/dL (6.4-8.2) Albumin 2.8 g/dL (3.4-5.0) Albumin/Globulin Ratio 0.9 (1.0-1.7) Assessment and Plan Assessmemt and Plan Problems Medical Problems: (1) Abdominal pain Status: Acute Comment Review of Relevant I have reviewed the following items anurag (where applicable) has been applied. Medications: Current Medications Medications (Trade) Dose Ordered Sig/Lucas Route PRN Reason Start Time Stop Time Status Last Admin Dose Admin Senna/Docusate Sodium (Senna Plus) 2 tab PRN BID PRN PO CONSTIPATION 12/15/20 14:00 12/15/20 17:32 Psyllium Hydrophilic Mucilloid (Metamucil Fiber Packet) 1 pkt QHS PO 12/15/20 21:00 12/15/20 20:45 Albumin Human 500 ml @ 125 mls/hr 1X ONCE IV 12/15/20 21:00 12/16/20 00:59 DC 12/15/20 20:49 Justifications for Admission Other Justification Cholelithiasis ALLA MCGEE MD Dec 16, 2020 13:21
--- NOTE | 2020-12-16 14:39 | NUR ---
MARIAH following. Discussed with RN, fax did not go through to [facility] on Wednesday. MARIAH refaxed home health referral - awaiting acceptance decision. MARIAH will continue to follow. Addendum: 12/16/20 at 1607 by ADILSON LEMUS Pt accepted with [facility]. RN notified.
[2020-12-16 15:32] VITALS: BP 107/69
--- NOTE | 2020-12-16 17:07 | PATHOLOGY ---
[facility] Accession Number: [id number] . 01 Material submitted: . stomach - ANTRAL BIOPSY. Modifiers: ANTRAL . 01 Clinical history: . ABDOMINAL PAIN EGD . 02 Diagnosis: Gastric biopsy, antrum: - Chronic gastritis, mild. LBQ 12/16/2020 1048 Local . 02 Comment: Sections of the gastric antral biopsy show congestion and mild chronic inflammation. A properly controlled immunoperoxidase stain for Helicobacter is negative for Helicobacter organisms. There is no evidence of malignancy. (JPM/db; 12/16/2020) . Special stain performed: Immunoperoxidase stain for Helicobacter on A1 . 02 Electronically signed: . Raj Talley MD, Pathologist NPI- [id number] . 01 Gross description: . Received in formalin labeled "Anisha Orozco, antral biopsy" are multiple elmore-brown soft tissue fragments measuring in aggregate 0.7 x 0.4 x 0.2 cm. The specimen is submitted entirely in A1. ([facility]; 12/13/2020) GZA/GZA 12/13/2020 1253 Local . 02 Pathologist provided ICD-10: K29.50 . 02 CPT . 831612, [id number] Specimen Comment: A courtesy copy of this report has been sent to [phone], [phone] Specimen Comment: [phone], , Specimen Comment: Report sent to ,DR ARMAS,DR BRODY,DR RODGERS / Specimen Comment: DR STAUFFER Performed at: [address], [place], [place] [id number] MD Emmett Kang MD Phone: [phone] Performed at: 02 [facility] [address], [place] [id number] MD Raj Talley MD Phone: [phone]
[2020-12-16 19:00] VITALS: BP 106/68
[2020-12-16] MEDS: ATORVASTATIN CALCIUM 10 MG TABLET. PO SCH (20:09)
[2020-12-16] MEDS: PSYLLIUM HUSK (SUGAR FREE) 1 PKT PACKET PO SCH (20:09)
[2020-12-16] MEDS: QUEtiapine 25 MG TABLET. PO SCH (20:09)
[2020-12-16] MEDS: DIPHENHYDRAMINE/ZINC ACETATE 2%/0.1% TOPICAL CREAM 28GM TUBE. TP PRN (20:10)
[2020-12-16 23:00] VITALS: BP 117/69
[2020-12-17 07:00] VITALS: BP 118/52
[2020-12-17] MEDS: levETIRAcetam 500 MG TABLET PO SCH (08:44)
[2020-12-17] MEDS: LISINOPRIL 5 MG TABLET. PO SCH (08:44)
[2020-12-17] MEDS: ENOXAPARIN 40 MG/0.4 ML SYRINGE. SQ SCH (08:44)
[2020-12-17] MEDS: CARVEDILOL 3.125 MG TABLET. PO SCH (08:45)
[2020-12-17] MEDS: PANTOPRAZOLE 40 MG TABLET.DR. PO SCH (08:45)
[2020-12-17] MEDS: CETIRIZINE HCL 10 MG TABLET. PO SCH (08:45)
[2020-12-17] MEDS: DULoxetine HCL 30 MG CAPSULE.DR PO SCH (08:45)
[2020-12-17] MEDS: SUCRALFATE 1 GM TABLET. PO SCH (08:45)
[2020-12-17] MEDS: DICLOFENAC SODIUM 1% TOPICAL GEL 100GM TUBE. TP SCH ×2 (08:46→13:00)
[2020-12-17] MEDS: POLYETHYLENE GLYCOL 3350 17 GM PACKET. PO SCH (08:46)
--- NOTE | 2020-12-17 09:36 | PDOC ---
Date of Service: DATE: 12/17/20 TIME: 09:34 Subjective: Subjective: No complaints. Eating without issue, stooled last night. Wants to go home. Objective: Vital Signs: Vital Signs Date Time Temp Pulse Resp B/P (MAP) Pulse Ox O2 Delivery O2 Flow Rate FiO2 12/17/20 08:45 80 117/69 12/17/20 07:00 97.9 18 92 Room Air 97.9 Labs: Material submitted: . stomach - ANTRAL BIOPSY. Modifiers: ANTRAL . 01 Clinical history: . ABDOMINAL PAIN EGD Diagnosis: Gastric biopsy, antrum: - Chronic gastritis, mild. Comment: Sections of the gastric antral biopsy show congestion and mild chronic inflammation. A properly controlled immunoperoxidase stain for Helicobacter is negative for Helicobacter organisms. There is no evidence of malignancy. PE: GEN: NAD - eating pancakes LUNGS: CTAB HEART: RRR ABD: NABS, S/ND/NT NEURO/PSYCH: A & O 3 A/P: Epigastric pain - resolving BLUE - stable Large HH, DU w/ stricture (required small scope) - path benign as above ?choledocholithiasis - LFTs never abnormal, ERCP probably not possible -- DC per primary on PPI. Justicifation of Admission Dx: Justifications for Admission: Justification of Admission Dx: Yes MELONIE CASTANO Dec 17, 2020 09:36
[2020-12-17 11:00] VITALS: BP 85/50
[2020-12-17] MEDS ORDERED: HYDR-2761 PO (11:25)
--- NOTE | 2020-12-17 11:28 | SNU/HH DC ---
DISCHARGE WITH HOME HEALTH DISCHARGE INFORMATION: Final Diagnosis: Problems Medical Problems: (1) Abdominal pain Status: Acute Condition on Discharge: Stable CODE STATUS: Code Status: Full HOME HEALTH: Face to Face: I certify this patient is under my care and that I, or a nurse practitioner or physician's pharmacy affairs assistant working with me, had a face to face encounter that meets the physician face to face encounter requirements with this patient on []. Medical Complications: Other (Abdominal pain) Halfway For: Assess & Educate Safety RN For Eval/Treatment: Yes Physical Therapy For: Evalulation/Treatment Occupational Therapy For: Evaluation/Treatment Home Health Aide For: Self-care INDUSTRIAL AUTOMATION SPECIALIST For: Community Resources Pt Meets Homebound Status: Unsteady balance w/ amb, POST DISCHARGE ORDERS: Activity Instructions for Disc: Activity as tolerated Weight Bearing Status after Di: As tolerated DIET AFTER DISCHARGE: Cardiac CHECKS AFTER DISCHARGE: Checks after discharge: Check blood press - daily CERTIFICATION STATEMENT: Certification Statement: Certification Statement: Based on the above finding, I certify that this patient is confined to the home and needs intermittent detention care, physical therapy and/or speech therapy, or continues to need occupational therapy.~ This patient is under my care, and I have initiated the establishment of the plan of care.~ This patient will be followed by myself or a community physician who will periodically review the plan of care. Home Meds Active Scripts Hydrocodone Bit/Acetaminophen (HYDROCODONE-APAP 5-325 ) 1 Tab Tablet, 1 TAB PO PRN Q4HRS PRN for MILD PAIN 1-3 for 10 Days, #30 TAB Prov:CASTLE,NIAL K III DO 12/17/20 Reported Medications Albuterol Sulfate (Proair Respiclick) 90 Mcg Aer.pow.ba, 2 PUFF IH PRN Q4-6HRS PRN for shortness of breath, #1 INHALER 0 Refills 11/28/20 Fluticasone Propionate (Flonase Allergy Relief) 9.9 Ml [place].susp, 2 SPRAYS NS DAILY for allergies, ML 11/28/20 Lisinopril (LISINOPRIL) 2.5 Mg Tablet, 1 TAB PO DAILY for BP, #30 TAB 5 Refills 11/28/20 Carvedilol (CARVEDILOL) 25 Mg Tablet, 3.125 MG PO BIDWMEALS for CARDIAC, TAB 11/28/20 Pravastatin Sodium (PRAVASTATIN SODIUM) 40 Mg Tablet, 1 TAB PO QHS for na, #90 TAB 3 Refills 11/28/20 Quetiapine Fumarate (SEROQUEL) 50 Mg Tablet, 50 MG PO HS for na, TAB 11/28/20 Famotidine (FAMOTIDINE) 40 Mg Tablet, 40 MG PO HS for na, TAB 11/28/20 Diclofenac Sodium (Voltaren Arthritis Pain) 20 Gm Gel..gram., 20 GM TP QID for na, EACH 11/28/20 Sucralfate (SUCRALFATE) 1 Gm Tablet, 1 TAB PO QID for na, #120 TAB 3 Refills 11/28/20 Montelukast Sodium (SINGULAIR TABLET ) 10 Mg Tablet, 10 MG PO HS for FOR ASTHMA, TAB 0 Refills 11/28/20 Levetiracetam (LEVETIRACETAM) 500 Mg Tablet, 1 TAB PO BID for na, #180 TAB 3 Refills 11/28/20 Duloxetine Hcl (CYMBALTA) 60 Mg Capsule.dr, 1 CAP PO BID for na, #90 CAP 3 Refills 11/28/20 Cetirizine Hcl (ZYRTEC) 10 Mg Tablet, 1 TAB PO DAILY for na, #30 TAB 2 Refills 11/28/20 Ondansetron Hcl (ZOFRAN) 4 Mg Tablet, 1 TAB PO Q6HRS for nausea, #20 TAB 11/28/20 Trazodone Hcl (TRAZODONE HCL) 50 Mg Tablet, 1 TAB PO QHS for sleep, #30 TAB 1 Refill 11/28/20 MARIAH WARD III DO Dec 17, 2020 11:28
--- NOTE | 2020-12-17 12:17 | PDOC ---
[employer] PROGRESS NOTE Date of Service DOS: DATE: 12/17/20 TIME: 12:12 Chief Complaint Chief Complaint CC: Epigastric pain Choledocholithiasis Acute abdominal pain History of fibromyalgia History of depression History of GERD and peptic ulcer disease Hypoxia - now on O2 History of Present Illness History of Present Illness 12/17 Pt seen and examined. SARI RN and DW case management. Pt is still having epigastric pain, but it has improved and she is ready to go home. HPI: Ms Orozco is a 75-year-old female with past medical history of cholelithiasis, who presents to the ED with complaints of epigastric abdominal pain. She has a history of similar pain over the past months, recently been admitted on 11/27/2020 and again on 12/06/2020 for similar complaints. She was seen by GI at that time and recommended ERCP or EUS in the very near future. These have been arranged with Dr. Horowitz with GI. Pain acutely worsened last night, so she presented to the ED. Labs in the ED showed WBC 9.0, hemoglobin 10.2, hematocrit 31.0, albumin 2.4. Acute abdomen series showed constipation. Will admit patient for further medical management. 12/11/2020: Afebrile, no events overnight. Still with abdominal pain, but denies nausea or vomiting. LFTs largely within normal limits, certainly not significantly elevated like expected with choledocholithiasis. Per GI, EGD today to search for other causes of her epigastric pain; however ultimately may need ERCP. 12/12/2020: Afebrile. Patient reports some improvement in her abdominal pain. Discussed EGD results that show hiatal hernia, 1 cm duodenal ulcer; antral biopsies were taken. Discussed concerns for possible H. pylori with patient. Continue with PPIs daily and follow biopsy results. 12/13/2020: No acute events overnight, afebrile. Pending results of antral biopsies. Continue PPI. 12/14/2020: Afebrile. Some complaints of chest congestion with sputum production overnight. Will provide guaifenesin as needed. Denies abdominal pain. Awaiting gastric biopsy results. Will continue PPI. 12/15/20 Afebrile. Placed on O2 overnight with some congestion. She is complaining of constipation. No abdominal pain she is seen eating. Of great concern is she has been discharged 4 times in the hospital and returned within a day or 2 with similar symptoms. She is amenable to awaiting biopsy results in getting her constipation treated chest radiograph for her new hypoxia. 71/ No acute events overnight. Patient seen and examined bedside. I have DC'd her trazodone for she does not take this as outpatient anymore. She is a bit weak and did not eat breakfast. For this reason, I will observe today and wait until she has an adequate BM before DC. We are also awaiting her [facility] [place] Bx results in the meantime. > 50% time spent in patient chart, labs, and image review and discussion with RN and SW Vitals/I&O Vitals/I&O: Vital Signs Date Time Temp Pulse Resp B/P (MAP) Pulse Ox O2 Delivery O2 Flow Rate FiO2 12/17/20 11:00 97.8 79 18 85/50 (62) 95 Room Air 97.8 I & O 12/16/20 12/16/20 12/17/20 15:00 23:00 07:00 Intake Total 540 ml 100 ml Output Total 525 ml Balance 15 ml 100 ml Physical Exam General: Alert, Oriented X3, Cooperative, No acute distress Heart: Regular rate, Normal S1, Normal S2, No murmurs Lungs: Clear Abdomen: Soft, Other (Epigastric abdominal tenderness) Extremities: No clubbing, No cyanosis, Normal pulses Skin: No rashes, No breakdown, No significant lesion Review of Systems Review of Systems: Denies SOA. Denies Chest pain. Assessment and Plan Assessmemt and Plan Problems Medical Problems: (1) Abdominal pain Status: Acute CC: Epigastric pain Choledocholithiasis Acute abdominal pain History of fibromyalgia History of depression History of GERD and peptic ulcer disease Hypoxia - now on O2 Plan: Consultation placed to GI IV pain management PT/OT Resume home medications Cardiac diet DVT prophylaxis DNR Discharge today with home health Comment Review of Relevant I have reviewed the following items anurag (where applicable) has been applied. Justifications for Admission Other Justification Cholelithiasis MARIAH WARD III DO Dec 17, 2020 12:17
--- NOTE | 2020-12-17 12:28 | NUR ---
SW following. Discussed with RN, discharge orders faxed to [facility]. No further SW needs.
--- NOTE | 2020-12-17 12:51 | DS ---
DATE OF DISCHARGE: 12/17/2020 ADMITTING DIAGNOSES: Abdominal pain. DISCHARGE DIAGNOSES: Resolving abdominal pain. PROCEDURES: EGD, which showed duodenal ulcer and hiatal hernia. HOSPITAL COURSE: The patient is a pleasant, middle-aged female who presented with abdominal pain. She was admitted. We gave her IV fluids, p.r.n. pain meds, Protonix and we consulted GI. She was taken for an EGD, which did show an ulcer and a hiatal hernia. Today, I saw and examined. She is at her baseline. She wants to go. We plan to discharge to home with home health. DISPOSITION: Home with home health. ACTIVITY: As tolerated. DIET: Low sodium. DISCHARGE MEDICATIONS: Please see the MRAD. 1. Albuterol. 2. P.r.n. hydrocodone 5 mg q.4 hours. 3. Carvedilol 3.125 b.i.d. 4. Cetirizine 10 a day. 5. Diclofenac 20 q.i.d. 6. Cymbalta 60 mg b.i.d. 7. Famotidine 40 a day. 8. Fluticasone nasal spray. 9. Keppra 500 b.i.d. 10. Lisinopril 2.5 a day. 11. Singulair 10 a day. 12. Zofran 10 q.6 hours. 13. Pravastatin 40 a day. 14. Seroquel 50 a day. 15. Carafate 1 gram q.i.d. 16. Trazodone 50 at bedtime. TOTAL TIME: [address]: Rosana TID: [id number]
== END 2020-12-17 13:10 | disposition home health service (06) | DRG 384 ==
LOC: ER 03:21 → 4 NORTH 04:45
PROVIDERS: ADMIT Internal Medicine; ATTEND Internal Medicine
PROC: 0DB68ZX Excision of Stomach, Via Natural or Artificial Opening Endoscopic, Diagnostic (ICD-10-PCS; principal; 2020-12-11 12:30)
DX: K26.9 Duodenal ulcer, unspecified as acute or chronic, without hemorrhage or perforation (principal); K80.61 Calculus of gallbladder and bile duct with cholecystitis, unspecified, with obstruction; E44.0 Moderate protein-calorie malnutrition; R64 Cachexia; K31.5 Obstruction of duodenum; K44.9 Diaphragmatic hernia without obstruction or gangrene; Z68.33 Body mass index [BMI] 33.0-33.9, adult; F32.9 Major depressive disorder, single episode, unspecified; K21.9 Gastro-esophageal reflux disease without esophagitis; K29.50 Unspecified chronic gastritis without bleeding; K76.0 Fatty (change of) liver, not elsewhere classified; M79.7 Fibromyalgia; Z90.710 Acquired absence of both cervix and uterus; Z90.49 Acquired absence of other specified parts of digestive tract
CPT/HCPCS: 36415; 43239; 71045; 74022; 80053; 83690; 83735; 84484; 85025; 88305; 88342; 93005; 94640; 96361; 96374; 96375; C9113; G0238; J1650; J2270; J2405; J2704; J7030; J7120; P9045; 97110-GP; 97116-GP; 97530-GO; 97535-GO; 99285-25; G0378

== ENCOUNTER 2020-12-30 23:40 | Observation (INO) | payer MEDICAID ==
[~2020-12-30] VITALS: Ht 165.1 cm; Wt 90.3 kg
[~2020-12-30 23:40] MED LIST changes: +HYDR-2761 PO; -LISI2.5T PO; +LISI2.5T12 PO
[2020-12-31] VITALS (12 sets, daily range): BP systolic 96–113; BP diastolic 50–66
[2020-12-31 00:01] LABS: BASO # 0.1 x10^3/uL (0.0-0.2); BASO % 1 % (0-3); EOS # 0.2 x10^3/uL (0.0-0.7); EOS % 1 % (0-3); HEMATOCRIT 35.8 % (36.0-47.0); HEMOGLOBIN 11.6 g/dL (12.0-15.5); LYMPH # 2.1 x10^3/uL (1.0-4.8); LYMPH % 18 % (24-48); MEAN CORPUSCULAR HEMOGLOBIN 27 pg (25-35); MEAN CORPUSCULAR HGB CONC 32 g/dL (31-37); MEAN CORPUSCULAR VOLUME 83 fL (79-100); MONO # 1.2 x10^3/uL (0.0-1.1); MONO % 11 % (0-9); NEUT # 8.1 x10^3/uL (1.8-7.7); NEUT % 70 % (31-73); PLATELET COUNT 461 x10^3/uL (140-400); RED BLOOD COUNT 4.34 x10^6/uL (3.50-5.40); WHITE BLOOD COUNT 11.6 x10^3/uL (4.0-11.0)
[2020-12-31 00:08] LABS: CALCIUM 9.4 mg/dL (8.5-10.1); GFR 54.3
[2020-12-31 00:14] LABS: ALBUMIN 3.5 g/dL (3.4-5.0); ALBUMIN/GLOBULIN RATIO 0.9 (1.0-1.7); TOTAL BILIRUBIN 0.4 mg/dL (0.2-1.0); TOTAL PROTEIN 7.3 g/dL (6.4-8.2)
[2020-12-31] MEDS ORDERED: IOHEXOL 300 MG/ML 100ML VIAL. IV ONE (00:30)
[2020-12-31] MEDS ORDERED: CONTRAST GIVEN. MC PRN (00:30)
--- NOTE | 2020-12-31 00:40 | PHYS DOC ---
Past Medical History Past Medical History: Other Additional Past Medical Histor: gallstones, lower back pain,ERCP,PUD,FIBROMYALGIA Past Surgical History: Cholecystectomy, Hysterectomy, Other Additional Past Surgical Histo: bilat ankles. Smoking Status: Never Smoker Alcohol Use: None General Adult EDM: Chief Complaint: ABDOMINAL PAIN HPI: HPI: 75-year-old female past medical history of peptic ulcer disease and fibromyalgia, presents the ED with complaints of " abdominal pain right here," and points to her epigastric region that started around 6 PM after patient ate hashbrowns and eggs. Patient states she was seen by Dr. Barrera her GI physician yesterday and has a scheduled EGD and colonoscopy on January 13. Has been told she has ulcers that are the sites of canker sores. No history of GI bleed or blood transfusions. Is vaccinated against for Covid. States her symptoms are similar to prior peptic ulcer disease symptoms and has admitted for this in the past year. LBM was yesterday, yellow in color. Review of Systems: Review of Systems: Constitutional: Denies fever or chills. [] Eyes: Denies change in visual acuity. [] HENT: Denies nasal congestion or sore throat. [] Respiratory: Denies cough or shortness of breath. [] Cardiovascular: Denies chest pain or edema. [] GI: Denies nausea, vomiting, melena or hematochezia : Denies dysuria or hematuria Musculoskeletal: Denies back pain or joint pain. [] Integument: Denies rash or diaphoresis Neurologic: Denies headache, focal weakness or sensory changes. [] Endocrine: Denies polyuria or polydipsia. [] Lymphatic: Denies swollen glands. [] Psychiatric: Denies depression or anxiety. [] Heart Score: C/O Chest Pain: No Risk Factors: Risk Factors: DM, Current or recent (<one month) smoker, HTN, HLP, family history of CAD, obesity. Risk Scores: Score 0 - 3: 2.5% MACE over next 6 weeks - Discharge Home Score 4 - 6: 20.3% MACE over next 6 weeks - Admit for Clinical Observation Score 7 - 10: 72.7% MACE over next 6 weeks - Early Invasive Strategies Current Medications: Current Medications Medications (Trade) Dose Ordered Sig/Lucas Start Time Stop Time Status Last Admin Dose Admin Info (CONTRAST GIVEN -- Rx MONITORING) 1 each PRN DAILY PRN 12/31/20 00:30 01/02/21 00:29 Iohexol (Omnipaque 300 Mg/ml) 60 ml 1X ONCE 12/31/20 00:30 12/31/20 00:31 DC 12/31/20 00:34 60 ML Allergies: Allergies: Allergies Coded Allergies Type Severity Reaction Last Updated Verified No Known Drug Allergies 12/11/20 No Physical Exam: PE: Constitutional: Well developed, well nourished, no acute distress, non-toxic appearance. HENT: Normocephalic, atraumatic, Eyes: EOMI, conjunctiva normal, no discharge. Neck: Normal range of motion, supple, Cardiovascular: S1/2 present, regular rhythm Lungs & Thorax: Speaking in full sentences, bilateral equal chest rise, no tachypnea or increased work of breathing Abdomen: soft/obese, epigastric abdominal tenderness, no rigidity or guarding Skin: Warm, dry, no erythema, no rash. [] Back: No tenderness, no CVA tenderness. [] Extremities: No tenderness, no cyanosis, Neurologic: Alert and oriented X 3, normal motor function, normal sensory function, no focal deficits noted. [] Psychologic: Affect normal, judgement normal, mood normal. [] Current Patient Data: Labs: Laboratory Tests Test 12/30/20 23:52 White Blood Count 11.6 x10^3/uL (4.0-11.0) H Red Blood Count 4.34 x10^6/uL (3.50-5.40) Hemoglobin 11.6 g/dL (12.0-15.5) L Hematocrit 35.8 % (36.0-47.0) L Mean Corpuscular Volume 83 fL (79-100) Mean Corpuscular Hemoglobin 27 pg (25-35) Mean Corpuscular Hemoglobin Concent 32 g/dL (31-37) Red Cell Distribution Width 16.0 % (11.5-14.5) H Platelet Count 461 x10^3/uL (140-400) H Neutrophils (%) (Auto) 70 % (31-73) Lymphocytes (%) (Auto) 18 % (24-48) L Monocytes (%) (Auto) 11 % (0-9) H Eosinophils (%) (Auto) 1 % (0-3) Basophils (%) (Auto) 1 % (0-3) Neutrophils # (Auto) 8.1 x10^3/uL (1.8-7.7) H Lymphocytes # (Auto) 2.1 x10^3/uL (1.0-4.8) Monocytes # (Auto) 1.2 x10^3/uL (0.0-1.1) H Eosinophils # (Auto) 0.2 x10^3/uL (0.0-0.7) Basophils # (Auto) 0.1 x10^3/uL (0.0-0.2) Sodium Level 139 mmol/L (136-145) Potassium Level 4.0 mmol/L (3.5-5.1) Chloride Level 102 mmol/L (98-107) Carbon Dioxide Level 24 mmol/L (21-32) Anion Gap 13 (6-14) Blood Urea Nitrogen 15 mg/dL (7-20) Creatinine 1.0 mg/dL (0.6-1.0) Estimated GFR (Cockcroft-Gault) 54.3 BUN/Creatinine Ratio 15 (6-20) Glucose Level 121 mg/dL (70-99) H Calcium Level 9.4 mg/dL (8.5-10.1) Total Bilirubin 0.4 mg/dL (0.2-1.0) Aspartate Amino Transferase (AST) 16 U/L (15-37) Alanine Aminotransferase (ALT) 18 U/L (14-59) Alkaline Phosphatase 78 U/L (46-116) Creatine Kinase 46 U/L (26-192) Troponin I Quantitative < 0.017 ng/mL (0.000-0.055) Total Protein 7.3 g/dL (6.4-8.2) Albumin 3.5 g/dL (3.4-5.0) Albumin/Globulin Ratio 0.9 (1.0-1.7) L Lipase 84 U/L (73-393) Laboratory Tests 12/30/20 23:52 Laboratory Tests 12/30/20 23:52 Vital Signs: Vital Signs Date Time Temp Pulse Resp B/P (MAP) Pulse Ox O2 Delivery O2 Flow Rate FiO2 12/30/20 23:41 98.3 85 18 111/71 (62) 94 Room Air 98.3 EKG: EKG: Sinus rhythm at 70 bpm, left axis deviation, normal intervals, no T wave inversions, no ST lesions or ST depressions Radiology/Procedures: Radiology/Procedures: [] IMAGING REPORT Signed PATIENT: JAMAR TAVARES ACCOUNT: [id number] : 1945 LOCATION: ER AGE: 75 SEX: F EXAM STATUS: REG ER ORD. PHYSICIAN: ARNAV JIMÉNEZ DO REASON: abd pain PROCEDURE: CT ABD PELV W/ IV CONTRST ONLY EXAMINATION: CT abdomen and pelvis with IV contrast. INDICATION:75 years, Female, abdominal pain. TECHNIQUE: Axial CT images of the abdomen and pelvis were obtained. Coronal and sagittal reformatted performed. COMPARISON: None. Exposure: One or more of the following individualized dose reduction techniques were utilized for this examination: 1. Automated exposure control 2. Adjustment of the mA and/or kV according to patient size 3. Use of iterative reconstruction technique. FINDINGS: LOWER CHEST: Unremarkable ABDOMEN/PELVIS: Liver, spleen and adrenals are unremarkable. Cholecystectomy. No biliary ductal dilation. Mildly atrophic pancreas with fat infiltration. No hydronephrosis or nephrolithiasis in either kidney. Multifocal right renal cortical scarring. Moderate size hiatal hernia. No bowel obstruction. Thickened appendix with appendicolith and periappendiceal fat stranding. No pneumoperitoneum to suggest perforation. Sigmoid diverticulosis without diverticulitis. Patent abdominal vasculatures. No ascites. No loculated fluid collection to suggest abscess. No lymphadenopathy in the abdomen or pelvis by size criteria. Underdistended urinary bladder which limits evaluation. Hysterectomy. No suspicious pelvic masses. MUSCULOSKELETAL: No acute osseous process. Multilevel degenerative changes in the spine. IMPRESSION: 1. Acute uncomplicated appendicitis with appendicolith. 2. Other chronic/incidental findings, as described above. Electronically signed by: Kamaljit Nuñez MD (12/31/2020 1:15 AM) [facility] DICTATED and SIGNED BY: KAMALJIT NUÑEZ MD DATE: 12/31/20 [id number] 0 Course & Med Decision Making: Course & Med Decision Making Pertinent Labs and Imaging studies reviewed. (See chart for details) Concern for acute, uncomplicated appendicitis with appendicolith, wbc 11.6. Abel l start on antibiotics, admit for further medical management with surgery consultation. I have spoken with the patient and/or caregivers. I have explained the patient's condition, diagnosis and treatment plan based on the information available to me at this time. I have answered the patient's and/or caregivers questions and answered any concerns. The patient and/or caregivers have as good an understanding of the patient's diagnosis, condition and treatment plan as can be expected at this point. The patient has been stabilized within the capability of the emergency department. The patient will be transported for further care and management or will be moved to an observation or inpatient service. I have communicated with the staff or medical practitioner taking over this patient's care. Dragon Disclaimer: Dragon Disclaimer: This electronic medical record was generated, in whole or in part, using a voice recognition dictation system. Departure Departure Impression: Primary Impression: Acute appendicitis Disposition: ADMITTED INPATIENT Admitting Physician: STEPHY (Dr. Moore) Condition: STABLE Referrals: SHARON STAUFFER MD (PCP) ARNAV JIMÉNEZ DO Dec 31, 2020 00:40
[2020-12-31] MEDS ORDERED: FAMOTIDINE 20 MG/2 ML VIAL IVP ONE (00:45)
[2020-12-31] MEDS ORDERED: METOCLOPRAMIDE HCL 10 MG/2 ML VIAL. IVP ONE (00:45)
--- NOTE | 2020-12-31 01:17 | RAD ---
EXAMINATION: CT abdomen and pelvis with IV contrast. INDICATION:75 years, Female, abdominal pain. TECHNIQUE: Axial CT images of the abdomen and pelvis were obtained. Coronal and sagittal reformatted performed. COMPARISON: None. Exposure: One or more of the following individualized dose reduction techniques were utilized for thi s examination: 1. Automated exposure control 2. Adjustment of the mA and/or kV according to patient size 3. Use of iterative reconstruction technique. FINDINGS: LOWER CHEST: Unremarkable ABDOMEN/PELVIS: Liver, spleen and adrenals are unremarkable. Cholecystectomy. No biliary ductal dilation. Mildly atro phic pancreas with fat infiltration. No hydronephrosis or nephrolithiasis in either kidney. Multifoca l right renal cortical scarring. Moderate size hiatal hernia. No bowel obstruction. Thickened appendi x with appendicolith and periappendiceal fat stranding. No pneumoperitoneum to suggest perforation. S igmoid diverticulosis without diverticulitis. Patent abdominal vasculatures. No ascites. No loculated fluid collection to suggest abscess. No lymphadenopathy in the abdomen or pelvis by size criteria. U nderdistended urinary bladder which limits evaluation. Hysterectomy. No suspicious pelvic masses. MUSCULOSKELETAL: No acute osseous process. Multilevel degenerative changes in the spine. IMPRESSION: 1. Acute uncomplicated appendicitis with appendicolith. 2. Other chronic/incidental findings, as described above. Electronically signed by: Hector Nuñez MD (12/31/2020 1:15 AM) [facility]
--- NOTE | 2020-12-31 01:41 | EKG ---
[facility] [address] [place] [address] Test Date: 2020-12-31 Test Time: 00:48:10 Pat Name: JAMAR TAVARES Department: Room: Gender: F [employer] Plant [employer]: : 1945 Requested By: ARNAV JIMÉNEZ Order Number: [id number] Reading MD: Measurements Intervals [place]dwell Rate: 79 P: 11 IN: 158 QRS: -39 QRSD: 114 T: 60 QT: 388 QTc: 446 Interpretive Statements SINUS RHYTHM ABNORMAL LEFT AXIS DEVIATION R-S TRANSITION ZONE IN V LEADS DISPLACED TO THE LEFT LEFT ANTERIOR FASCICULAR BLOCK T ABNORMALITY IN HIGH LATERAL LEADS ABNORMAL ECG RI6.01 No previous ECG available for comparison
[2020-12-31 02:22] LABS: BILIRUBIN,URINE NEGATIVE (NEG); CLARITY,URINE CLEAR; COLOR,URINE YELLOW; NITRITE,URINE NEGATIVE (NEG); PH,URINE 5.5 (<5.0-8.0); PROTEIN,URINE NEGATIVE (NEG-TRACE); UROBILINOGEN,URINE 0.2 mg/dL (0.2 mg/dL)
[2020-12-31] MEDS ORDERED: ONDANSETRON PF 4 MG/2 ML VIAL. IV PRN (02:45)
[2020-12-31] MEDS ORDERED: fentaNYL PF VIAL 100 MCG/2 ML VIAL IV PRN (02:45)
[2020-12-31 02:57] LABS: BACTERIA,URINE 0 /HPF (0-FEW); HYALINE CASTS, URINE FEW /HPF; RBC,URINE 0 /HPF (0-2); WBC,URINE OCC /HPF (0-4)
--- NOTE | 2020-12-31 03:12 | RAD ---
EXAMINATION: Chest radiograph. VIEWS: Single view COMPARISON: 12/15/2020 INDICATION:75 years, Female, abdomen pain. FINDINGS: Normal cardiomediastinal silhouette. No focal consolidation. No pleural effusion or pneumothorax. No acute osseous process. IMPRESSION: No acute cardiopulmonary process. Electronically signed by: Hector Nuñez MD (12/31/2020 3:10 AM) [facility]
[2020-12-31] MEDS: IV NORMAL SALINE 1000ML BAG 1,000 ML IV SCH ×2 (03:37→22:33)
[2020-12-31] MEDS: cefOXitin SODIUM IV Push 2 GM VIAL. IVP SCH ×4 (04:23→22:32)
[2020-12-31] MEDS ORDERED: IOHEXOL 300 MG/ML 100ML VIAL. ONE (05:14)
[2020-12-31] MEDS ORDERED: C.DIFF MED SCREEN BY RX. MC ONE (05:45)
[2020-12-31] MEDS ORDERED: IV RINGERS,LACTATED 1000ML 1,000 ML IV SCH (08:00)
[2020-12-31] MEDS ORDERED: PROCHLORPERAZINE 10 MG/2 ML VIAL. IVP PRN (08:00)
[2020-12-31] MEDS ORDERED: fentaNYL PF VIAL 100 MCG/2 ML VIAL IVP PRN ×2 (08:00)
--- NOTE | 2020-12-31 08:28 | PDOC1 ---
History and Physical Date of Service: DOS: DATE: 12/31/20 TIME: 08:26 Chief Complaint: Chief Complain: ABD pain History of Present Illness: HPI: Seven 35-year-old with past medical history of peptic ulcer disease and fibromyalgia who comes in with complaints of abdominal pain in the epigastric region last night after eating hashbrowns. Patient actually had a scheduled EGD and colonoscopy on January [address] Barrera. Patient does not have any history of GI bleeds or blood transfusions. Denies fevers, chills, chest pain, nausea vomiting, diarrhea, bloody stools or dysuria. Past Medical/Surgical History: PMH/PSH: Past Medical History: gallstones, lower back pain,ERCP,PUD,FIBROMYALGIA Past Surgical History: Cholecystectomy, Hysterectomy, Allergies: Allergies: Coded Allergies: No Known Drug Allergies (Unverified , 12/11/20) Family History: Family History: Reviewed with no relevant findings Social History: Social History: Smoking Status: Never Smoker Alcohol Use: None Current Medications: Current Medications Current Medications Iohexol (Omnipaque 300 Mg/ml) 60 ml 1X ONCE IV Last administered on 12/31/20at 00:34; Start 12/31/20 at 00:30; Stop 12/31/20 at 00:31; Status DC Info (CONTRAST GIVEN -- Rx MONITORING) 1 each PRN DAILY PRN MC SEE COMMENTS; Start 12/31/20 at 00:30; Stop 01/02/21 at 00:29 Famotidine (Pepcid Vial) 20 mg 1X ONCE IVP Last administered on 12/31/20at 03:37; Start 12/31/20 at 00:45; Stop 12/31/20 at 00:46; Status DC Metoclopramide HCl (Reglan Vial) 10 mg 1X ONCE IVP Last administered on 12/31/20at 03:39; Start 12/31/20 at 00:45; Stop 12/31/20 at 00:46; Status DC Ondansetron HCl (Zofran) 4 mg PRN Q8HRS PRN IV NAUSEA/VOMITING Last administered on 12/31/20at 03:38; Start 12/31/20 at 02:45; Stop 01/01/21 at 02:44 Fentanyl Citrate (Fentanyl 2ml Vial) 50 mcg PRN Q1HR PRN IV PAIN Last administered on 12/31/20at 03:41; Start 12/31/20 at 02:45; Stop 01/01/21 at 02:44 Sodium Chloride 1,000 ml @ 75 mls/hr [id number] IV Last administered on 12/31/20at 03:37; Start 12/31/20 at 02:45; Stop 01/01/21 at 02:44 Cefoxitin Sodium (Mefoxin) 2 gm Q8HRS IVP Last administered on 12/31/20at 04:23; Start 12/31/20 at 03:00 Iohexol (Omnipaque 300 Mg/ml) 100 ml STK-MED ONCE .ROUTE ; Start 12/31/20 at 05:14; Stop 12/31/20 at 05:14; Status DC Pharmacy Consult (C.diff Med Screen By Rx) 1 each 1X ONCE MC ; Start 12/31/20 at 05:45; Stop 12/31/20 at 05:46; Status DC Fentanyl Citrate (Fentanyl 2ml Vial) 25 mcg PRN Q5MIN PRN IVP MILD PAIN 1-3; Start 12/31/20 at 08:00; Stop 01/01/21 at 07:59 Fentanyl Citrate (Fentanyl 2ml Vial) 50 mcg PRN Q5MIN PRN IVP MODERATE PAIN 4- 6; Start 12/31/20 at 08:00; Stop 01/01/21 at 07:59 Morphine Sulfate (Morphine Sulfate) 1 mg PRN Q10MIN PRN IVP SEVERE PAIN 7-10; Start 12/31/20 at 08:00; Stop 01/01/21 at 07:59 Ringer's Solution 1,000 ml @ 30 mls/hr Q24H IV ; Start 12/31/20 at 08:00; Stop 12/31/20 at 19:59 Hydromorphone HCl (Dilaudid) 0.5 mg PRN Q10MIN PRN IVP SEVERE PAIN 7-10, 2nd CHOICE; Start 12/31/20 at 08:00; Stop 01/01/21 at 07:59 Prochlorperazine Edisylate (Compazine) 5 mg PACU PRN PRN IVP NAUSEA, MRX1; Start 12/31/20 at 08:00; Stop 01/01/21 at 07:59 Active Scripts Active Hydrocodone-Apap 5-325 (Hydrocodone Bit/Acetaminophen) 1 Tab Tablet 1 Tab PO PRN Q4HRS PRN 10 Days Reported Proair Respiclick (Albuterol Sulfate) 90 Mcg Aer.pow.ba 2 Puff IH PRN Q4-6HRS PRN Flonase Allergy Relief (Fluticasone Propionate) 9.9 Ml [place].susp 2 Sprays NS DAILY Lisinopril 2.5 Mg Tablet 1 Tab PO DAILY Carvedilol 25 Mg Tablet 3.125 Mg PO BIDWMEALS Pravastatin Sodium 40 Mg Tablet 1 Tab PO QHS Seroquel (Quetiapine Fumarate) 50 Mg Tablet 50 Mg PO HS Famotidine 40 Mg Tablet 40 Mg PO HS Voltaren Arthritis Pain (Diclofenac Sodium) 20 Gm Gel..gram. 20 Gm TP QID Sucralfate 1 Gm Tablet 1 Tab PO QID Singulair Tablet (Montelukast Sodium) 10 Mg Tablet 10 Mg PO HS Levetiracetam 500 Mg Tablet 1 Tab PO BID Cymbalta (Duloxetine Hcl) 60 Mg Capsule.dr 1 Cap PO BID Zyrtec (Cetirizine Hcl) 10 Mg Tablet 1 Tab PO DAILY Zofran (Ondansetron Hcl) 4 Mg Tablet 1 Tab PO Q6HRS Trazodone Hcl 50 Mg Tablet 1 Tab PO QHS ROS: Review of Systems Review of System REVIEW OF SYSTEMS: GENERAL: Denies weakness SKIN: No bruising, hair changes or rashes. EYES: No blurred, double or loss of vision. NOSE AND THROAT: No history of nosebleeds, hoarseness or sore throat. HEART: No history of palpitations, chest pain or shortness of breath on exertion. LUNGS: Denies cough, hemoptysis, wheezing or shortness of breath. GASTROINTESTINAL: Denies changes in appetite, nausea, vomiting, diarrhea or constipation. GENITOURINARY: No history of frequency, urgency, hesitancy or nocturia. NEUROLOGIC: Denies history of numbness, tingling, or tremor. PSYCHIATRIC: No history of panic, anxiety or depression. ENDOCRINE: No history of heat or cold intolerance, polyuria or polydipsia. EXTREMITIES: Denies joint pain, pain on walking or stiffness. Physical Exam: Vital Signs: Vital Signs Date Time Temp Pulse Resp B/P (MAP) Pulse Ox O2 Delivery O2 Flow Rate FiO2 12/31/20 05:00 Room Air 12/31/20 05:00 97.9 82 17 112/62 (79 95 97.9 Physcial Exam: General: Well developed, well nourished, no acute distress, well appearing HEENT: Pupils equally round and reactive to light, EOMI, no discharge, normal conjunctiva Neck: Supple, no nuchal rigidity, no JVD, trachea midline, no tenderness Cardiac: RRR, no murmurs, no gallops, no rubs Chest/Lungs: CTAB, no wheeze, no rhonchi, no crackles Abdomen: soft, non-distended, no guarding, no peritoneal signs, non-tender Back: No tenderness Extremities: no edema, pulses intact, non-tender,capillary refill <3 sec bilateral upper and lower extremities, Neuro: Alert and oriented x 4, no focal deficits, normal speech Labs: Labs: Laboratory Tests Test 12/30/20 23:52 12/31/20 02:15 12/31/20 03:25 White Blood Count 11.6 x10^3/uL (4.0-11.0) Red Blood Count 4.34 x10^6/uL (3.50-5.40) Hemoglobin 11.6 g/dL (12.0-15.5) Hematocrit 35.8 % (36.0-47.0) Mean Corpuscular Volume 83 fL (79-100) Mean Corpuscular Hemoglobin 27 pg (25-35) Mean Corpuscular Hemoglobin Concent 32 g/dL (31-37) Red Cell Distribution Width 16.0 % (11.5-14.5) Platelet Count 461 x10^3/uL (140-400) Neutrophils (%) (Auto) 70 % (31-73) Lymphocytes (%) (Auto) 18 % (24-48) Monocytes (%) (Auto) 11 % (0-9) Eosinophils (%) (Auto) 1 % (0-3) Basophils (%) (Auto) 1 % (0-3) Neutrophils # (Auto) 8.1 x10^3/uL (1.8-7.7) Lymphocytes # (Auto) 2.1 x10^3/uL (1.0-4.8) Monocytes # (Auto) 1.2 x10^3/uL (0.0-1.1) Eosinophils # (Auto) 0.2 x10^3/uL (0.0-0.7) Basophils # (Auto) 0.1 x10^3/uL (0.0-0.2) Sodium Level 139 mmol/L (136-145) Potassium Level 4.0 mmol/L (3.5-5.1) Chloride Level 102 mmol/L (98-107) Carbon Dioxide Level 24 mmol/L (21-32) Anion Gap 13 (6-14) Blood Urea Nitrogen 15 mg/dL (7-20) Creatinine 1.0 mg/dL (0.6-1.0) Estimated GFR (Cockcroft-Gault) 54.3 BUN/Creatinine Ratio 15 (6-20) Glucose Level 121 mg/dL (70-99) Calcium Level 9.4 mg/dL (8.5-10.1) Total Bilirubin 0.4 mg/dL (0.2-1.0) Aspartate Amino Transf (AST/SGOT) 16 U/L (15-37) Alanine Aminotransferase (ALT/SGPT) 18 U/L (14-59) Alkaline Phosphatase 78 U/L (46-116) Creatine Kinase 46 U/L (26-192) Troponin I Quantitative < 0.017 ng/mL (0.000-0.055) Total Protein 7.3 g/dL (6.4-8.2) Albumin 3.5 g/dL (3.4-5.0) Albumin/Globulin Ratio 0.9 (1.0-1.7) Lipase 84 U/L (73-393) Urine Collection Type Unknown Urine Color Yellow Urine Clarity Clear Urine pH 5.5 (<5.0-8.0) Urine Specific [place] >=1.030 (1.000-1.030) Urine Protein Negative mg/dL (NEG-TRACE) Urine Glucose (UA) Negative mg/dL (NEG) Urine Ketones (Stick) Negative mg/dL (NEG) Urine Blood Negative (NEG) Urine Nitrite Negative (NEG) Urine Bilirubin Negative (NEG) Urine Urobilinogen Dipstick 0.2 mg/dL (0.2 mg/dL) Urine Leukocyte Esterase Negative (NEG) Urine RBC 0 /HPF (0-2) Urine WBC Occ /HPF (0-4) Urine Squamous Epithelial Cells Mod /LPF Urine Bacteria 0 /HPF (0-FEW) Urine Hyaline Casts Few /HPF Urine Mucus Slight /LPF SARS-CoV-2 Antigen (Rapid) Negative (NEGATIVE) Laboratory Tests Test 12/30/20 23:52 12/31/20 02:15 12/31/20 03:25 White Blood Count 11.6 x10^3/uL (4.0-11.0) Red Blood Count 4.34 x10^6/uL (3.50-5.40) Hemoglobin 11.6 g/dL (12.0-15.5) Hematocrit 35.8 % (36.0-47.0) Mean Corpuscular Volume 83 fL (79-100) Mean Corpuscular Hemoglobin 27 pg (25-35) Mean Corpuscular Hemoglobin Concent 32 g/dL (31-37) Red Cell Distribution Width 16.0 % (11.5-14.5) Platelet Count 461 x10^3/uL (140-400) Neutrophils (%) (Auto) 70 % (31-73) Lymphocytes (%) (Auto) 18 % (24-48) Monocytes (%) (Auto) 11 % (0-9) Eosinophils (%) (Auto) 1 % (0-3) Basophils (%) (Auto) 1 % (0-3) Neutrophils # (Auto) 8.1 x10^3/uL (1.8-7.7) Lymphocytes # (Auto) 2.1 x10^3/uL (1.0-4.8) Monocytes # (Auto) 1.2 x10^3/uL (0.0-1.1) Eosinophils # (Auto) 0.2 x10^3/uL (0.0-0.7) Basophils # (Auto) 0.1 x10^3/uL (0.0-0.2) Sodium Level 139 mmol/L (136-145) Potassium Level 4.0 mmol/L (3.5-5.1) Chloride Level 102 mmol/L (98-107) Carbon Dioxide Level 24 mmol/L (21-32) Anion Gap 13 (6-14) Blood Urea Nitrogen 15 mg/dL (7-20) Creatinine 1.0 mg/dL (0.6-1.0) Estimated GFR (Cockcroft-Gault) 54.3 BUN/Creatinine Ratio 15 (6-20) Glucose Level 121 mg/dL (70-99) Calcium Level 9.4 mg/dL (8.5-10.1) Total Bilirubin 0.4 mg/dL (0.2-1.0) Aspartate Amino Transf (AST/SGOT) 16 U/L (15-37) Alanine Aminotransferase (ALT/SGPT) 18 U/L (14-59) Alkaline Phosphatase 78 U/L (46-116) Creatine Kinase 46 U/L (26-192) Troponin I Quantitative < 0.017 ng/mL (0.000-0.055) Total Protein 7.3 g/dL (6.4-8.2) Albumin 3.5 g/dL (3.4-5.0) Albumin/Globulin Ratio 0.9 (1.0-1.7) Lipase 84 U/L (73-393) Urine Collection Type Unknown Urine Color Yellow Urine Clarity Clear Urine pH 5.5 (<5.0-8.0) Urine Specific [place] >=1.030 (1.000-1.030) Urine Protein Negative mg/dL (NEG-TRACE) Urine Glucose (UA) Negative mg/dL (NEG) Urine Ketones (Stick) Negative mg/dL (NEG) Urine Blood Negative (NEG) Urine Nitrite Negative (NEG) Urine Bilirubin Negative (NEG) Urine Urobilinogen Dipstick 0.2 mg/dL (0.2 mg/dL) Urine Leukocyte Esterase Negative (NEG) Urine RBC 0 /HPF (0-2) Urine WBC Occ /HPF (0-4) Urine Squamous Epithelial Cells Mod /LPF Urine Bacteria 0 /HPF (0-FEW) Urine Hyaline Casts Few /HPF Urine Mucus Slight /LPF SARS-CoV-2 Antigen (Rapid) Negative (NEGATIVE) Images: Images PROCEDURE: CT ABD PELV W/ IV CONTRST ONLY EXAMINATION: CT abdomen and pelvis with IV contrast. INDICATION:75 years, Female, abdominal pain. TECHNIQUE: Axial CT images of the abdomen and pelvis were obtained. Coronal and sagittal reformatted performed. COMPARISON: None. Exposure: One or more of the following individualized dose reduction techniques were utilized for this examination: 1. Automated exposure control 2. Adjustment of the mA and/or kV according to patient size 3. Use of iterative reconstruction technique. FINDINGS: LOWER CHEST: Unremarkable ABDOMEN/PELVIS: Liver, spleen and adrenals are unremarkable. Cholecystectomy. No biliary ductal dilation. Mildly atrophic pancreas with fat infiltration. No hydronephrosis or nephrolithiasis in either kidney. Multifocal right renal cortical scarring. Moderate size hiatal hernia. No bowel obstruction. Thickened appendix with appendicolith and periappendiceal fat stranding. No pneumoperitoneum to suggest perforation. Sigmoid diverticulosis without diverticulitis. Patent abdominal vasculatures. No ascites. No loculated fluid collection to suggest abscess. No lymphadenopathy in the abdomen or pelvis by size criteria. Underdistended urinary bladder which limits evaluation. Hysterectomy. No suspicious pelvic masses. MUSCULOSKELETAL: No acute osseous process. Multilevel degenerative changes in the spine. IMPRESSION: 1. Acute uncomplicated appendicitis with appendicolith. 2. Other chronic/incidental findings, as described above. Assessment/Plan Assessment/Plan Acute abdominal pain due to acute appendicitis Reactive leukocytosis Admit to hospital service for further management General surgery consult for appendectomy N.p.o. Continue IV fluids Continue empiric IV antibiotics SCD for DVT prophylaxis Tonic GI prophylaxis ADA diet Full code Discussed with RN and SW Disposition on-call to the OR Surrogate decision maker is daughter Justifications for Admission Other Justification Cholelithiasis ALLA MCGEE MD Dec 31, 2020 08:28
--- NOTE | 2020-12-31 08:43 | PDOC2 ---
RAQUEL [facility]ANIE[facility] [employer] 12/31/20 0843: CONSULT Date of Consult Date of Consult DATE: 12/31/20 TIME: 08:34 Reason for Consult Reason for Consult: appendicitis Referring Physician Referring Physician: ER Identification/Chief Complaint Chief Complaint abdominal pain Source Source: Chart review, Patient History of Present Illness Reason for Visit: Has been admitted 3 times since November. Epigastric abdominal pain, concern for choledocholithiasis(LFTS have been normal). underwent EGD earlier this month with findings of DU w/ stricture. Had been on PPI and watching what she was eating. Yesterday developed epigastric pain after eating. Did not improve, concern for ulcer prompted ER evaluation. Past Medical History CENTRAL NERVOUS SYSTEM: Seizure GI: GERD, Peptic Ulcer disease Psych: Depression Past Surgical History Past Surgical History: Cholecystectomy, Hysterectomy Family History Family History: Family History Unknown Social History No ALCOHOL: rare Drugs: None Current Problem List Problem List Problems Medical Problems: (1) Acute appendicitis Status: Acute Current Medications Current Medications Current Medications Iohexol (Omnipaque 300 Mg/ml) 60 ml 1X ONCE IV Last administered on 12/31/20at 00:34; Start 12/31/20 at 00:30; Stop 12/31/20 at 00:31; Status DC Info (CONTRAST GIVEN -- Rx MONITORING) 1 each PRN DAILY PRN MC SEE COMMENTS; Start 12/31/20 at 00:30; Stop 01/02/21 at 00:29 Famotidine (Pepcid Vial) 20 mg 1X ONCE IVP Last administered on 12/31/20at 03:37; Start 12/31/20 at 00:45; Stop 12/31/20 at 00:46; Status DC Metoclopramide HCl (Reglan Vial) 10 mg 1X ONCE IVP Last administered on 12/31/20at 03:39; Start 12/31/20 at 00:45; Stop 12/31/20 at 00:46; Status DC Ondansetron HCl (Zofran) 4 mg PRN Q8HRS PRN IV NAUSEA/VOMITING Last administered on 12/31/20at 03:38; Start 12/31/20 at 02:45; Stop 01/01/21 at 02:44 Fentanyl Citrate (Fentanyl 2ml Vial) 50 mcg PRN Q1HR PRN IV PAIN Last administered on 12/31/20at 03:41; Start 12/31/20 at 02:45; Stop 01/01/21 at 02:44 Sodium Chloride 1,000 ml @ 75 mls/hr [id number] IV Last administered on 12/31/20at 03:37; Start 12/31/20 at 02:45; Stop 01/01/21 at 02:44 Cefoxitin Sodium (Mefoxin) 2 gm Q8HRS IVP Last administered on 12/31/20at 04:23; Start 12/31/20 at 03:00 Iohexol (Omnipaque 300 Mg/ml) 100 ml STK-MED ONCE .ROUTE ; Start 12/31/20 at 05:14; Stop 12/31/20 at 05:14; Status DC Pharmacy Consult (C.diff Med Screen By Rx) 1 each 1X ONCE MC ; Start 12/31/20 at 05:45; Stop 12/31/20 at 05:46; Status DC Fentanyl Citrate (Fentanyl 2ml Vial) 25 mcg PRN Q5MIN PRN IVP MILD PAIN 1-3; Start 12/31/20 at 08:00; Stop 01/01/21 at 07:59 Fentanyl Citrate (Fentanyl 2ml Vial) 50 mcg PRN Q5MIN PRN IVP MODERATE PAIN 4- 6; Start 12/31/20 at 08:00; Stop 01/01/21 at 07:59 Morphine Sulfate (Morphine Sulfate) 1 mg PRN Q10MIN PRN IVP SEVERE PAIN 7-10; Start 12/31/20 at 08:00; Stop 01/01/21 at 07:59 Ringer's Solution 1,000 ml @ 30 mls/hr Q24H IV ; Start 12/31/20 at 08:00; Stop 12/31/20 at 19:59 Hydromorphone HCl (Dilaudid) 0.5 mg PRN Q10MIN PRN IVP SEVERE PAIN 7-10, 2nd CHOICE; Start 12/31/20 at 08:00; Stop 01/01/21 at 07:59 Prochlorperazine Edisylate (Compazine) 5 mg PACU PRN PRN IVP NAUSEA, MRX1; Start 12/31/20 at 08:00; Stop 01/01/21 at 07:59 Active Scripts Active Hydrocodone-Apap 5-325 (Hydrocodone Bit/Acetaminophen) 1 Tab Tablet 1 Tab PO PRN Q4HRS PRN 10 Days Reported Proair Respiclick (Albuterol Sulfate) 90 Mcg Aer.pow.ba 2 Puff IH PRN Q4-6HRS PRN Flonase Allergy Relief (Fluticasone Propionate) 9.9 Ml [place].susp 2 Sprays NS DAILY Lisinopril 2.5 Mg Tablet 1 Tab PO DAILY Carvedilol 25 Mg Tablet 3.125 Mg PO BIDWMEALS Pravastatin Sodium 40 Mg Tablet 1 Tab PO QHS Seroquel (Quetiapine Fumarate) 50 Mg Tablet 50 Mg PO HS Famotidine 40 Mg Tablet 40 Mg PO HS Voltaren Arthritis Pain (Diclofenac Sodium) 20 Gm Gel..gram. 20 Gm TP QID Sucralfate 1 Gm Tablet 1 Tab PO QID Singulair Tablet (Montelukast Sodium) 10 Mg Tablet 10 Mg PO HS Levetiracetam 500 Mg Tablet 1 Tab PO BID Cymbalta (Duloxetine Hcl) 60 Mg Capsule.dr 1 Cap PO BID Zyrtec (Cetirizine Hcl) 10 Mg Tablet 1 Tab PO DAILY Zofran (Ondansetron Hcl) 4 Mg Tablet 1 Tab PO Q6HRS Trazodone Hcl 50 Mg Tablet 1 Tab PO QHS Allergies Allergies: Coded Allergies: No Known Drug Allergies (Unverified , 12/11/20) ROS General: No: Chills, Other (fevers ) PSYCHOLOGICAL ROS: No: Anxiety, Depression Eyes: No Blurry vision, No Double vision HEENT: No: Heacaches, Sore Throat Hematological and Lymphatic: No: Bleeding Problems, Blood Clots Respiratory: No: Cough, Shortness of breath Cardiovascular: No Chest Pain, No Palpitations Gastrointestinal: Yes Other (see hpi) Genitourinary: No Dysuria, No Hematuria Musculoskeletal: No Joint Pain, No Muscle Pain Neurological: No Impaired Coord/balance, No Numbness/Tingling Skin: No Pruritus, No Rash Physical Exam General: Alert, Oriented X3, Cooperative HEENT: Atraumatic, PERRLA Lungs: Clear to auscultation, Normal air movement Heart: Regular rate, Normal S1, Normal S2 Abdomen: Soft, Other (TTP RLQ no guarding ) Extremities: No clubbing, No cyanosis Skin: No rashes, No breakdown Neuro: Normal gait, Normal speech Psych/Mental Status: Mental status NL, Mood NL MUSCULOSKELETAL: No deformity, No swelling Vitals VITALS Vital Signs Date Time Temp Pulse Resp B/P (MAP) Pulse Ox O2 Delivery O2 Flow Rate FiO2 12/31/20 05:00 Room Air 12/31/20 05:00 97.9 82 17 112/62 (79) 95 97.9 Labs Labs Laboratory Tests Test 12/30/20 23:52 12/31/20 02:15 12/31/20 03:25 White Blood Count 11.6 x10^3/uL (4.0-11.0) Red Blood Count 4.34 x10^6/uL (3.50-5.40) Hemoglobin 11.6 g/dL (12.0-15.5) Hematocrit 35.8 % (36.0-47.0) Mean Corpuscular Volume 83 fL (79-100) Mean Corpuscular Hemoglobin 27 pg (25-35) Mean Corpuscular Hemoglobin Concent 32 g/dL (31-37) Red Cell Distribution Width 16.0 % (11.5-14.5) Platelet Count 461 x10^3/uL (140-400) Neutrophils (%) (Auto) 70 % (31-73) Lymphocytes (%) (Auto) 18 % (24-48) Monocytes (%) (Auto) 11 % (0-9) Eosinophils (%) (Auto) 1 % (0-3) Basophils (%) (Auto) 1 % (0-3) Neutrophils # (Auto) 8.1 x10^3/uL (1.8-7.7) Lymphocytes # (Auto) 2.1 x10^3/uL (1.0-4.8) Monocytes # (Auto) 1.2 x10^3/uL (0.0-1.1) Eosinophils # (Auto) 0.2 x10^3/uL (0.0-0.7) Basophils # (Auto) 0.1 x10^3/uL (0.0-0.2) Sodium Level 139 mmol/L (136-145) Potassium Level 4.0 mmol/L (3.5-5.1) Chloride Level 102 mmol/L (98-107) Carbon Dioxide Level 24 mmol/L (21-32) Anion Gap 13 (6-14) Blood Urea Nitrogen 15 mg/dL (7-20) Creatinine 1.0 mg/dL (0.6-1.0) Estimated GFR (Cockcroft-Gault) 54.3 BUN/Creatinine Ratio 15 (6-20) Glucose Level 121 mg/dL (70-99) Calcium Level 9.4 mg/dL (8.5-10.1) Total Bilirubin 0.4 mg/dL (0.2-1.0) Aspartate Amino Transf (AST/SGOT) 16 U/L (15-37) Alanine Aminotransferase (ALT/SGPT) 18 U/L (14-59) Alkaline Phosphatase 78 U/L (46-116) Creatine Kinase 46 U/L (26-192) Troponin I Quantitative < 0.017 ng/mL (0.000-0.055) Total Protein 7.3 g/dL (6.4-8.2) Albumin 3.5 g/dL (3.4-5.0) Albumin/Globulin Ratio 0.9 (1.0-1.7) Lipase 84 U/L (73-393) Urine Collection Type Unknown Urine Color Yellow Urine Clarity Clear Urine pH 5.5 (<5.0-8.0) Urine Specific [place] >=1.030 (1.000-1.030) Urine Protein Negative mg/dL (NEG-TRACE) Urine Glucose (UA) Negative mg/dL (NEG) Urine Ketones (Stick) Negative mg/dL (NEG) Urine Blood Negative (NEG) Urine Nitrite Negative (NEG) Urine Bilirubin Negative (NEG) Urine Urobilinogen Dipstick 0.2 mg/dL (0.2 mg/dL) Urine Leukocyte Esterase Negative (NEG) Urine RBC 0 /HPF (0-2) Urine WBC Occ /HPF (0-4) Urine Squamous Epithelial Cells Mod /LPF Urine Bacteria 0 /HPF (0-FEW) Urine Hyaline Casts Few /HPF Urine Mucus Slight /LPF SARS-CoV-2 Antigen (Rapid) Negative (NEGATIVE) Laboratory Tests Test 12/30/20 23:52 12/31/20 02:15 12/31/20 03:25 White Blood Count 11.6 x10^3/uL (4.0-11.0) Red Blood Count 4.34 x10^6/uL (3.50-5.40) Hemoglobin 11.6 g/dL (12.0-15.5) Hematocrit 35.8 % (36.0-47.0) Mean Corpuscular Volume 83 fL (79-100) Mean Corpuscular Hemoglobin 27 pg (25-35) Mean Corpuscular Hemoglobin Concent 32 g/dL (31-37) Red Cell Distribution Width 16.0 % (11.5-14.5) Platelet Count 461 x10^3/uL (140-400) Neutrophils (%) (Auto) 70 % (31-73) Lymphocytes (%) (Auto) 18 % (24-48) Monocytes (%) (Auto) 11 % (0-9) Eosinophils (%) (Auto) 1 % (0-3) Basophils (%) (Auto) 1 % (0-3) Neutrophils # (Auto) 8.1 x10^3/uL (1.8-7.7) Lymphocytes # (Auto) 2.1 x10^3/uL (1.0-4.8) Monocytes # (Auto) 1.2 x10^3/uL (0.0-1.1) Eosinophils # (Auto) 0.2 x10^3/uL (0.0-0.7) Basophils # (Auto) 0.1 x10^3/uL (0.0-0.2) Sodium Level 139 mmol/L (136-145) Potassium Level 4.0 mmol/L (3.5-5.1) Chloride Level 102 mmol/L (98-107) Carbon Dioxide Level 24 mmol/L (21-32) Anion Gap 13 (6-14) Blood Urea Nitrogen 15 mg/dL (7-20) Creatinine 1.0 mg/dL (0.6-1.0) Estimated GFR (Cockcroft-Gault) 54.3 BUN/Creatinine Ratio 15 (6-20) Glucose Level 121 mg/dL (70-99) Calcium Level 9.4 mg/dL (8.5-10.1) Total Bilirubin 0.4 mg/dL (0.2-1.0) Aspartate Amino Transf (AST/SGOT) 16 U/L (15-37) Alanine Aminotransferase (ALT/SGPT) 18 U/L (14-59) Alkaline Phosphatase 78 U/L (46-116) Creatine Kinase 46 U/L (26-192) Troponin I Quantitative < 0.017 ng/mL (0.000-0.055) Total Protein 7.3 g/dL (6.4-8.2) Albumin 3.5 g/dL (3.4-5.0) Albumin/Globulin Ratio 0.9 (1.0-1.7) Lipase 84 U/L (73-393) Urine Collection Type Unknown Urine Color Yellow Urine Clarity Clear Urine pH 5.5 (<5.0-8.0) Urine Specific [place] >=1.030 (1.000-1.030) Urine Protein Negative mg/dL (NEG-TRACE) Urine Glucose (UA) Negative mg/dL (NEG) Urine Ketones (Stick) Negative mg/dL (NEG) Urine Blood Negative (NEG) Urine Nitrite Negative (NEG) Urine Bilirubin Negative (NEG) Urine Urobilinogen Dipstick 0.2 mg/dL (0.2 mg/dL) Urine Leukocyte Esterase Negative (NEG) Urine RBC 0 /HPF (0-2) Urine WBC Occ /HPF (0-4) Urine Squamous Epithelial Cells Mod /LPF Urine Bacteria 0 /HPF (0-FEW) Urine Hyaline Casts Few /HPF Urine Mucus Slight /LPF SARS-CoV-2 Antigen (Rapid) Negative (NEGATIVE) Assessment/Plan Assessment/Plan acute appendicitis plan for lap appy today GINA FORTE MD 12/31/20 1245: CONSULT Assessment/Plan Assessment/Plan Pt seen and examined; 75 year old female who reported to the ER with abdominal pain. She describes it as "all over" but points to the right side. She states that she has been having problems with abdominal pain for months and has been seeing Dr Rankin. No clear etiology has been given. PMH/PSH/ROS/SH as above; exam: alert, oriented, no distress, no icterus, lungs clear, heart RR and R, abdomen soft, obese, tender with palpation in R side, ext neg for edema; labs and xrays reviewed. A/P) Abdominal pain, suspect acute appendicitis, plan to OR. The details and risks of surgery were discussed with the patient. She understands and would like to proceed. RAQUEL SAMANIEGO APRN Dec 31, 2020 08:43 GINA FORTE MD Dec 31, 2020 12:45
[2020-12-31] MEDS ORDERED: BUPIVACAINE-EPI 0.5%-1:200000 MPF 30 ML VIAL. ONE (10:54)
--- NOTE | 2020-12-31 11:54 | NUR ---
SW following. Discussed with RN, pt from home alone, room air, NPO, rapid COVID-19 negative. Surgery following - pt having an appy today. Per RN, pt gets around fine. RN advised no SW needs at this time. SW will continue to follow.
[2020-12-31] MEDS ORDERED: PROPOFOL 10 MG/ML (20ML) VIAL. IV ONE (12:11)
[2020-12-31] MEDS ORDERED: LIDOCAINE 2% PF 5 ML VIAL. ONE (12:11)
[2020-12-31] MEDS ORDERED: MIDAZOLAM HCL/PF 2 MG/2 ML VIAL. ONE (12:12)
[2020-12-31] MEDS ORDERED: fentaNYL PF VIAL 250 MCG/5 ML VIAL ONE (12:12)
[2020-12-31] MEDS ORDERED: ROCURONIUM 50 MG/5 ML VIAL. ONE (12:12)
[2020-12-31] MEDS ORDERED: ONDANSETRON PF 4 MG/2 ML VIAL. ONE (12:17)
[2020-12-31] MEDS ORDERED: NEOSTIGMINE METHYLSULFATE 5 MG/5 ML SYRINGE. ONE (12:17)
[2020-12-31] MEDS ORDERED: DEXAMETHASONE SOD PHOS 4 MG/ML VIAL ONE (12:17)
[2020-12-31] MEDS ORDERED: GLYCOPYRROLATE 1 MG/5 ML VIAL. ONE (12:17)
[2020-12-31] MEDS ORDERED: PROCHLORPERAZINE 10 MG/2 ML VIAL. ONE (13:58)
[2020-12-31] MEDS ORDERED: MORPHINE SULFATE 2 MG/ML INJ. ONE (13:58)
[2020-12-31] MEDS ORDERED: SEVOFLURANE 61 TO 120 MINUTES. IH ONE (14:00)
[2020-12-31] MEDS: MORPHINE SULFATE 2 MG/ML INJ. IVP PRN ×2 (14:02→14:12)
[2020-12-31] MEDS ORDERED: HYDROmorphone 2 MG/ML VIAL ONE (14:10)
[2020-12-31] MEDS: HYDROmorphone 2 MG/ML VIAL IVP PRN ×2 (14:23→14:33)
--- NOTE | 2020-12-31 15:14 | PDOC4 ---
Operative Note Operative Note Preoperative Diagnosis: Acute Appendicitis Postoperative Diagnosis: Same Procedure: Laparoscopic appendectomy Surgeon: Parish Anesthesia: Gen. EBL: 10 mL Specimen: Appendix to pathology Drains: None Complications: None Indication: The patient is a 75-year-old female who reported to the emergency department with abdominal pain. The evaluation is consistent with acute appendicitis. The patient was offered surgical treatment with a laparoscopic appendectomy. The risks of surgery were discussed which include bleeding, infection, visceral injury, pain, anesthetic risk, potential need for additional surgery or procedure. The patient understands and would like to proceed. Description: The patient was taken to the operating room and placed supine on the operating table. Gen. anesthesia was performed. The abdomen was prepped with ChloraPrep and draped in a standard surgical manner. A supraumbilical incision was made through which a veress needle was inserted and a pneumoperitoneum was created. A visualized 5 mm trocar was inserted and the laparoscope was intr oduced. In the left lower quadrant a 5 mm trocar was inserted. In the suprapubic region a 12 mm trocar was inserted. The appendix was identified and appeared inflamed consistent with acute appendicitis. There was no clear evidence of perforation or periappendiceal abscess. The mesoappendix was bluntly from the appendix. The mesoappendix was controlled using several clips and it was divided. The appendix was then amputated off the cecum using an Endo BEN 45 stapling device. The appendix was then placed in an endoscopic bag and extracted at the suprapubic incision site. The fascia there was closed with 0 Vicryl and infiltrated with half percent Marcaine with epinephrine. The RLQ was visualized and the staple line appeared well intact and hemostasis was good. No other abnormalities were identified grossly. The remaining ports were removed and the pneumoperitoneum was relieved. The skin at all incision sites was closed with 4-0 Monocryl. Steri-Strips and dressings were applied. The patient tolerated the procedure well and was sent to the recovery room in stable condition. At the end of the case all counts were correct. GINA FORTE MD Dec 31, 2020 15:14
[2020-12-31] MEDS: HYDROcodone/APAP 5/325MG 1 TAB TABLET PO PRN (22:53)
[2021-01-01 04:30] VITALS: BP 107/67
[2021-01-01] MEDS: cefOXitin SODIUM IV Push 2 GM VIAL. IVP SCH (06:34)
[2021-01-01 09:00] VITALS: BP 99/62
[2021-01-01] MEDS: HYDROcodone/APAP 5/325MG 1 TAB TABLET PO PRN ×4 (09:14→14:41)
--- NOTE | 2021-01-01 10:38 | PDOC ---
PROGRESS NOTES Date of Service DATE: 01/01/21 TIME: 10:36 Subjective Subjective states she is sore Objective Objective Vital Signs Date Time Temp Pulse Resp B/P (MAP) Pulse Ox O2 Delivery O2 Flow Rate FiO2 01/01/21 09:15 98 Nasal Cannula 2.0 01/01/21 09:14 20 01/01/21 09:00 97.9 89 99/62 (74) 97.9 Intake and Output 01/01/21 07:00 Intake Total 1220 ml Output Total 100 ml Balance 1120 ml Intake Oral 820 ml IV Total 400 ml Output Estimated Blood Loss 100 ml # Voids 5 Physical Exam Abdomen: Soft Assessment Assessment Problems Medical Problems: (1) Acute appendicitis Status: Acute Plan Plan of Care POD 1 lap appy; stable from surgery standpoint; can discharge when ok with Primary service Comment Review of Relevant I have reviewed the following items anurag (where applicable) has been applied. Labs Laboratory Tests Test 12/30/20 23:52 12/31/20 02:15 12/31/20 03:25 White Blood Count 11.6 x10^3/uL (4.0-11.0) Red Blood Count 4.34 x10^6/uL (3.50-5.40) Hemoglobin 11.6 g/dL (12.0-15.5) Hematocrit 35.8 % (36.0-47.0) Mean Corpuscular Volume 83 fL (79-100) Mean Corpuscular Hemoglobin 27 pg (25-35) Mean Corpuscular Hemoglobin Concent 32 g/dL (31-37) Red Cell Distribution Width 16.0 % (11.5-14.5) Platelet Count 461 x10^3/uL (140-400) Neutrophils (%) (Auto) 70 % (31-73) Lymphocytes (%) (Auto) 18 % (24-48) Monocytes (%) (Auto) 11 % (0-9) Eosinophils (%) (Auto) 1 % (0-3) Basophils (%) (Auto) 1 % (0-3) Neutrophils # (Auto) 8.1 x10^3/uL (1.8-7.7) Lymphocytes # (Auto) 2.1 x10^3/uL (1.0-4.8) Monocytes # (Auto) 1.2 x10^3/uL (0.0-1.1) Eosinophils # (Auto) 0.2 x10^3/uL (0.0-0.7) Basophils # (Auto) 0.1 x10^3/uL (0.0-0.2) Sodium Level 139 mmol/L (136-145) Potassium Level 4.0 mmol/L (3.5-5.1) Chloride Level 102 mmol/L (98-107) Carbon Dioxide Level 24 mmol/L (21-32) Anion Gap 13 (6-14) Blood Urea Nitrogen 15 mg/dL (7-20) Creatinine 1.0 mg/dL (0.6-1.0) Estimated GFR (Cockcroft-Gault) 54.3 BUN/Creatinine Ratio 15 (6-20) Glucose Level 121 mg/dL (70-99) Calcium Level 9.4 mg/dL (8.5-10.1) Total Bilirubin 0.4 mg/dL (0.2-1.0) Aspartate Amino Transf (AST/SGOT) 16 U/L (15-37) Alanine Aminotransferase (ALT/SGPT) 18 U/L (14-59) Alkaline Phosphatase 78 U/L (46-116) Creatine Kinase 46 U/L (26-192) Troponin I Quantitative < 0.017 ng/mL (0.000-0.055) Total Protein 7.3 g/dL (6.4-8.2) Albumin 3.5 g/dL (3.4-5.0) Albumin/Globulin Ratio 0.9 (1.0-1.7) Lipase 84 U/L (73-393) Urine Collection Type Unknown Urine Color Yellow Urine Clarity Clear Urine pH 5.5 (<5.0-8.0) Urine Specific [place] >=1.030 (1.000-1.030) Urine Protein Negative mg/dL (NEG-TRACE) Urine Glucose (UA) Negative mg/dL (NEG) Urine Ketones (Stick) Negative mg/dL (NEG) Urine Blood Negative (NEG) Urine Nitrite Negative (NEG) Urine Bilirubin Negative (NEG) Urine Urobilinogen Dipstick 0.2 mg/dL (0.2 mg/dL) Urine Leukocyte Esterase Negative (NEG) Urine RBC 0 /HPF (0-2) Urine WBC Occ /HPF (0-4) Urine Squamous Epithelial Cells Mod /LPF Urine Bacteria 0 /HPF (0-FEW) Urine Hyaline Casts Few /HPF Urine Mucus Slight /LPF Coronavirus (COVID-19)(PCR) Negative (NEGATIVE) SARS-CoV-2 RNA (CLARE) Invalid (Negative) SARS-CoV-2 Antigen (Rapid) Negative (NEGATIVE) Medications Current Medications Iohexol (Omnipaque 300 Mg/ml) 60 ml 1X ONCE IV Last administered on 12/31/20at 00:34; Start 12/31/20 at 00:30; Stop 12/31/20 at 00:31; Status DC Info (CONTRAST GIVEN -- Rx MONITORING) 1 each PRN DAILY PRN MC SEE COMMENTS; Start 12/31/20 at 00:30; Stop 01/02/21 at 00:29 Famotidine (Pepcid Vial) 20 mg 1X ONCE IVP Last administered on 12/31/20at 03:37; Start 12/31/20 at 00:45; Stop 12/31/20 at 00:46; Status DC Metoclopramide HCl (Reglan Vial) 10 mg 1X ONCE IVP Last administered on 12/31/20at 03:39; Start 12/31/20 at 00:45; Stop 12/31/20 at 00:46; Status DC Ondansetron HCl (Zofran) 4 mg PRN Q8HRS PRN IV NAUSEA/VOMITING Last administered on 12/31/20at 03:38; Start 12/31/20 at 02:45; Stop 01/01/21 at 05:24; Status DC Fentanyl Citrate (Fentanyl 2ml Vial) 50 mcg PRN Q1HR PRN IV PAIN Last administered on 12/31/20at 03:41; Start 12/31/20 at 02:45; Stop 01/01/21 at 05:24; Status DC Sodium Chloride 1,000 ml @ 75 mls/hr [id number] IV Last administered on 12/31/20at 22:33; Start 12/31/20 at 02:45; Stop 01/01/21 at 05:24; Status DC Cefoxitin Sodium (Mefoxin) 2 gm Q8HRS IVP Last administered on 01/01/21at 06:34; Start 12/31/20 at 03:00 Iohexol (Omnipaque 300 Mg/ml) 100 ml STK-MED ONCE .ROUTE ; Start 12/31/20 at 05:14; Stop 12/31/20 at 05:14; Status DC Pharmacy Consult (C.diff Med Screen By Rx) 1 each 1X ONCE MC Last administered on 12/31/20at 12:31; Start 12/31/20 at 05:45; Stop 12/31/20 at 05:46; Status DC Fentanyl Citrate (Fentanyl 2ml Vial) 25 mcg PRN Q5MIN PRN IVP MILD PAIN 1-3; Start 12/31/20 at 08:00; Stop 01/01/21 at 07:59; Status DC Fentanyl Citrate (Fentanyl 2ml Vial) 50 mcg PRN Q5MIN PRN IVP MODERATE PAIN 4- 6; Start 12/31/20 at 08:00; Stop 01/01/21 at 07:59; Status DC Morphine Sulfate (Morphine Sulfate) 1 mg PRN Q10MIN PRN IVP SEVERE PAIN 7-10 Last administered on 12/31/20at 14:12; Start 12/31/20 at 08:00; Stop 01/01/21 at 07:59; Status DC Ringer's Solution 1,000 ml @ 30 mls/hr Q24H IV ; Start 12/31/20 at 08:00; Stop 12/31/20 at 19:59; Status DC Hydromorphone HCl (Dilaudid) 0.5 mg PRN Q10MIN PRN IVP SEVERE PAIN 7-10, 2nd CHOICE Last administered on 12/31/20at 14:33; Start 12/31/20 at 08:00; Stop 01/01/21 at 07:59; Status DC Prochlorperazine Edisylate (Compazine) 5 mg PACU PRN PRN IVP NAUSEA, MRX1 Last administered on 12/31/20at 14:02; Start 12/31/20 at 08:00; Stop 01/01/21 at 07:59; Status DC Bupivacaine HCl/ Epinephrine Bitart (Sensorcain-Epi 0.5%-1:194751 Mpf) 30 ml STK-MED ONCE .ROUTE Last administered on 12/31/20at 13:07; Start 12/31/20 at 10:54; Stop 12/31/20 at 10:54; Status DC Propofol (Diprivan) 200 mg STK-MED ONCE IV ; Start 12/31/20 at 12:11; Stop 12/31/20 at 12:12; Status DC Lidocaine HCl (Lidocaine Pf 2% Vial) 5 ml STK-MED ONCE .ROUTE ; Start 12/31/20 at 12:11; Stop 12/31/20 at 12:12; Status DC Rocuronium [place] (Zemuron) 50 mg STK-MED ONCE .ROUTE ; Start 12/31/20 at 12:12; Stop 12/31/20 at 12:12; Status DC Midazolam HCl (Versed) 2 mg STK-MED ONCE .ROUTE ; Start 12/31/20 at 12:12; Stop 12/31/20 at 12:12; Status DC Fentanyl Citrate (Fentanyl 5ml Vial) 250 mcg STK-MED ONCE .ROUTE ; Start 12/31/20 at 12:12; Stop 12/31/20 at 12:12; Status DC Dexamethasone Sodium Phosphate (Decadron) 4 mg STK-MED ONCE .ROUTE ; Start 12/31/20 at 12:17; Stop 12/31/20 at 12:17; Status DC Ondansetron HCl (Zofran) 4 mg STK-MED ONCE .ROUTE ; Start 12/31/20 at 12:17; Stop 12/31/20 at 12:17; Status DC Neostigmine [place] (Neostigmine Methylsulfate) 5 mg STK-MED ONCE .ROUTE ; Start 12/31/20 at 12:17; Stop 12/31/20 at 12:17; Status DC Glycopyrrolate (Robinul) 1 mg STK-MED ONCE .ROUTE ; Start 12/31/20 at 12:17; Stop 12/31/20 at 12:17; Status DC Morphine Sulfate (Morphine Sulfate) 2 mg STK-MED ONCE .ROUTE ; Start 12/31/20 at 13:58; Stop 12/31/20 at 13:59; Status DC Prochlorperazine Edisylate (Compazine) 10 mg STK-MED ONCE .ROUTE ; Start 12/31/20 at 13:58; Stop 12/31/20 at 13:59; Status DC Sevoflurane (Ultane) 60 ml STK-MED ONCE IH ; Start 12/31/20 at 14:00; Stop 12/31/20 at 14:01; Status DC Hydromorphone HCl (Dilaudid) 2 mg STK-MED ONCE .ROUTE ; Start 12/31/20 at 14:10; Stop 12/31/20 at 14:10; Status DC Acetaminophen/ Hydrocodone Bitart (Lortab 5/325) 1 tab PRN Q4HRS PRN PO MILD PAIN 1-3 Last administered on 01/01/21at 09:15; Start 12/31/20 at 15:15 Acetaminophen/ Hydrocodone Bitart (Lortab 5/325) 2 tab PRN Q4HRS PRN PO MODERATE PAIN, SEVERE PAIN Last administered on 12/31/20at 22:53; Start 12/31/20 at 15:30 Active Scripts Active Hydrocodone-Apap 5-325 (Hydrocodone Bit/Acetaminophen) 1 Tab Tablet 1 Tab PO PRN Q4HRS PRN 10 Days Reported Proair Respiclick (Albuterol Sulfate) 90 Mcg Aer.pow.ba 2 Puff IH PRN Q4-6HRS PRN Flonase Allergy Relief (Fluticasone Propionate) 9.9 Ml [place].susp 2 Sprays NS DAILY Lisinopril 2.5 Mg Tablet 1 Tab PO DAILY Carvedilol 25 Mg Tablet 3.125 Mg PO BIDWMEALS Pravastatin Sodium 40 Mg Tablet 1 Tab PO QHS Seroquel (Quetiapine Fumarate) 50 Mg Tablet 50 Mg PO HS Famotidine 40 Mg Tablet 40 Mg PO HS Voltaren Arthritis Pain (Diclofenac Sodium) 20 Gm Gel..gram. 20 Gm TP QID Sucralfate 1 Gm Tablet 1 Tab PO QID Singulair Tablet (Montelukast Sodium) 10 Mg Tablet 10 Mg PO HS Levetiracetam 500 Mg Tablet 1 Tab PO BID Cymbalta (Duloxetine Hcl) 60 Mg Capsule.dr 1 Cap PO BID Zyrtec (Cetirizine Hcl) 10 Mg Tablet 1 Tab PO DAILY Zofran (Ondansetron Hcl) 4 Mg Tablet 1 Tab PO Q6HRS Trazodone Hcl 50 Mg Tablet 1 Tab PO QHS Vitals/I & O Vital Sign - Last 24 Hours 12/31/20 12/31/20 12/31/20 12/31/20 11:00 11:58 13:56 14:02 Temp 97.6 97.2 97.2 97.6 97.2 97.2 Pulse 70 76 91 Resp 18 16 16 16 B/P (MAP) 101/61 (74) 120/64 140/71 Pulse Ox 91 93 100 100 O2 Delivery Room Air Room Air Room Air Simple Mask O2 Flow Rate 10.0 12/31/20 12/31/20 12/31/20 12/31/20 14:12 14:21 14:23 14:33 Pulse 92 Resp 16 16 16 16 B/P (MAP) 100/49 Pulse Ox 100 100 100 100 O2 Delivery Simple Mask Room Air Room Air Room Air O2 Flow Rate 10.0 10. 10.0 10.0 12/31/20 12/31/20 12/31/20 12/31/20 15:00 15:00 15:00 15:15 Temp 97.7 97.7 Pulse 88 88 Resp 18 18 18 B/P (MAP) 103/55 (71) 97/52 (67) Pulse Ox 98 95 O2 Delivery Nasal Cannula Nasal Cannula Nasal Cannula Nasal Cannula O2 Flow Rate 2.0 2.0 2.0 12/31/20 12/31/20 12/31/20 12/31/20 15:30 15:45 16:15 16:45 Pulse 87 82 88 83 Resp 18 18 18 18 B/P (MAP) 96/50 (65) 98/55 (69) 96/52 (67) 96/55 (69) Pulse Ox 96 95 96 96 O2 Delivery Nasal Cannula Nasal Cannula Nasal Cannula Nasal Cannula O2 Flow Rate 2.0 2.0 2.0 2.0 12/31/20 12/31/20 12/31/20 12/31/20 17:45 18:45 22:33 22:53 Temp 98.3 98.3 Pulse 80 73 74 Resp 18 18 18 B/P (MAP) 96/56 (69) 98/55 (69) 106/63 (77) Pulse Ox 96 96 96 96 O2 Delivery Nasal Cannula Nasal Cannula Nasal Cannula Nasal Cannula O2 Flow Rate 2.0 2.0 2.0 2.0 12/31/20 01/01/21 01/01/21 01/01/21 23:05 04:30 09:00 09:00 Temp 98.3 97.9 98.3 97.9 Pulse 77 89 Resp 12 20 B/P (MAP) 107/67 (80) 99/62 (74) Pulse Ox 98 97 O2 Delivery Nasal Cannula Nasal Cannula Nasal Cannula Nasal Cannula O2 Flow Rate 2.0 2.0 2.0 01/01/21 01/01/21 09:14 09:15 Resp 20 Pulse Ox 98 O2 Delivery Nasal Cannula O2 Flow Rate 2.0 Intake and Output 12/31/20 12/31/20 01/01/21 15:00 23:00 07:00 Intake Total 400 ml 420 ml 400 ml Output Total 100 ml Balance 300 ml 420 ml 400 ml Justifications for Admission Other Justification Cholelithiasis GINA FORTE MD Jan 01, 2021 10:38
[2021-01-01] MEDS ORDERED: HYDR-2761 PO (12:46)
[2021-01-01] MEDS ORDERED: SENN1TAB99 PO (12:47)
--- NOTE | 2021-01-01 12:49 | DISCH ---
DISCHARGE INSTRUCTIONS Condition on Discharge Condition on Discharge: Stable Activity After Discharge Activity Instructions for Disc: Activity as tolerated Lifting Instructions after Dis: No heavy lifting, Do not lift >10 pounds Exercise Instruction after Dis: Walk 15 min, 3 x per day Weight Bearing Status after Di: As tolerated Diet after Discharge Diet after Discharge: Diabetic No Calorie Level Checks after Discharge Checks after discharge: Check blood press - daily Contacting the DR. after DC Call your doctor for: If your condition worsens Follow-Up Follow up with: PCP within 2 weeks of discharge Follow Up With: General surgery for postoperative wound check ALLA MCGEE MD Jan 01, 2021 12:49
[2021-01-01 15:18] VITALS: BP 115/55
[2021-01-01 17:00] VITALS: BP 103/79
--- NOTE | 2021-01-01 17:05 | NUR ---
to awaiting cab by w/c accompanied by rn
--- NOTE | 2021-01-04 18:07 | PDOC3 ---
[facility]-Discharge Summary Date of Admission: Date of Admission: Dec 31, 2020 Date of Discharge: Date of Discharge: Jan 01, 2021 Discharge Diagnosis: Discharge Diagnosis: Acute abdominal pain due to acute appendicitis Reactive leukocytosis Hospital Course: Hospital Course: 75-year-old with past medical history of peptic ulcer disease and fibromyalgia who comes in with complaints of abdominal pain in the epigastric region last night after eating hashbrowns. Patient actually had a scheduled EGD and colonoscopy on January [address] Barrera. Patient does not have any history of GI bleeds or blood transfusions. Denies fevers, chills, chest pain, nausea vomiting, diarrhea, bloody stools or dysuria. Taken to OR for laparoscopic appendectomy. Tolerated procedure well without any postoperative complications. Ambulating, pain was well controlled, and tolerating diet. The rest of the hospital course was uneventful. Disposition: Disposition/Orders: D/C to Home Activity: Activity: Resume previous activity Diet: Diet: Cardiac Medications: Home Meds Active Scripts Sennosides/Docusate Sodium (Senna-Docusate Sodium Tablet) 1 Each Tablet, 1 TAB PO DAILY PRN for CONSTIPATION for 20 Days, #20 TAB 0 Refills Prov:ALLA MCGEE MD 01/01/21 Hydrocodone Bit/Acetaminophen (HYDROCODONE-APAP 5-325 ) 1 Tab Tablet, 1 TAB PO PRN Q6-8HRS PRN for MILD PAIN 1-3 for 3 Days, #12 TAB Prov:ALLA MCGEE MD 01/01/21 Reported Medications Albuterol Sulfate (Proair Respiclick) 90 Mcg Aer.pow.ba, 2 PUFF IH PRN Q4-6HRS PRN for shortness of breath, #1 INHALER 0 Refills 11/28/20 Fluticasone Propionate (Flonase Allergy Relief) 9.9 Ml [place].susp, 2 SPRAYS NS DAILY for allergies, ML 11/28/20 Lisinopril (LISINOPRIL) 2.5 Mg Tablet, 1 TAB PO DAILY for BP, #30 TAB 5 Refills 11/28/20 Carvedilol (CARVEDILOL) 25 Mg Tablet, 3.125 MG PO BIDWMEALS for CARDIAC, TAB 11/28/20 Pravastatin Sodium (PRAVASTATIN SODIUM) 40 Mg Tablet, 1 TAB PO QHS for na, #90 TAB 3 Refills 11/28/20 Quetiapine Fumarate (SEROQUEL) 50 Mg Tablet, 50 MG PO HS for na, TAB 11/28/20 Famotidine (FAMOTIDINE) 40 Mg Tablet, 40 MG PO HS for na, TAB 11/28/20 Diclofenac Sodium (Voltaren Arthritis Pain) 20 Gm Gel..gram., 20 GM TP QID for na, EACH 11/28/20 Sucralfate (SUCRALFATE) 1 Gm Tablet, 1 TAB PO QID for na, #120 TAB 3 Refills 11/28/20 Montelukast Sodium (SINGULAIR TABLET ) 10 Mg Tablet, 10 MG PO HS for FOR ASTHMA, TAB 0 Refills 11/28/20 Levetiracetam (LEVETIRACETAM) 500 Mg Tablet, 1 TAB PO BID for na, #180 TAB 3 Refills 11/28/20 Duloxetine Hcl (CYMBALTA) 60 Mg Capsule.dr, 1 CAP PO BID for na, #90 CAP 3 Refills 11/28/20 Cetirizine Hcl (ZYRTEC) 10 Mg Tablet, 1 TAB PO DAILY for na, #30 TAB 2 Refills 11/28/20 Ondansetron Hcl (ZOFRAN) 4 Mg Tablet, 1 TAB PO Q6HRS for nausea, #20 TAB 11/28/20 Trazodone Hcl (TRAZODONE HCL) 50 Mg Tablet, 1 TAB PO QHS for sleep, #30 TAB 1 Refill 11/28/20 Scheduled Carvedilol (Carvedilol), 3.125 MG PO BIDWMEALS, (Reported) Cetirizine Hcl (Zyrtec), 1 TAB PO DAILY, (Reported) Diclofenac Sodium (Voltaren Arthritis Pain), 20 GM TP QID, (Reported) Duloxetine Hcl (Cymbalta), 1 CAP PO BID, (Reported) Famotidine (Famotidine), 40 MG PO HS, (Reported) Fluticasone Propionate (Flonase Allergy Relief), 2 SPRAYS NS DAILY, (Reported) Levetiracetam (Levetiracetam), 1 TAB PO BID, (Reported) Lisinopril (Lisinopril), 1 TAB PO DAILY, (Reported) Montelukast Sodium (Singulair Tablet ), 10 MG PO HS, (Reported) Ondansetron Hcl (Zofran), 1 TAB PO Q6HRS, (Reported) Pravastatin Sodium (Pravastatin Sodium), 1 TAB PO QHS, (Reported) Quetiapine Fumarate (Seroquel), 50 MG PO HS, (Reported) Sucralfate (Sucralfate), 1 TAB PO QID, (Reported) Trazodone Hcl (Trazodone Hcl), 1 TAB PO QHS, (Reported) Scheduled PRN Albuterol Sulfate (Proair Respiclick), 2 PUFF IH PRN Q4-6HRS PRN for shortness of breath, (Reported) Hydrocodone Bit/Acetaminophen (Hydrocodone-Apap 5-325 ), 1 TAB PO PRN Q6-8HRS PRN for MILD PAIN 1-3 Sennosides/Docusate Sodium (Senna-Docusate Sodium Tablet), 1 TAB PO DAILY PRN for CONSTIPATION Total Time: Total Time: Total time spent was 34 minutes in preparing scripts, discharge planning with SW and RN, and preparing this discharge summary. Patient seen and examined on day of discharge. Justicifation of Admission Dx: Justifications for Admission: Justification of Admission Dx: Yes ALLA MCGEE MD Jan 04, 2021 18:07
--- NOTE | 2021-01-15 10:44 | NUR ---
Late entry - NS infusion started on 12/31/20 at 0337 was stopped at 12/31/20 at 1657. NS infusion started on 12/31/20 at 2233 stopped at 01/01/21 at 1153.
== END 2021-01-01 17:05 | disposition still patient (30) ==
LOC: ER 23:40 → INTOOBSV 12-31 04:38 → 4 NORTH 12-31 04:38 → 3 NORTH 12-31 15:25
PROVIDERS: ADMIT Internal Medicine; ATTEND Internal Medicine
DX: K35.80 Unspecified acute appendicitis (principal); K38.1 Appendicular concretions; D72.828 Other elevated white blood cell count; K12.0 Recurrent oral aphthae; K80.20 Calculus of gallbladder without cholecystitis without obstruction; Z20.822 Contact with and (suspected) exposure to COVID-19; M79.7 Fibromyalgia; Z87.11 Personal history of peptic ulcer disease; Z90.710 Acquired absence of both cervix and uterus; Z79.899 Other long term (current) drug therapy
CPT/HCPCS: 36415; 44970; 71045; 74177; 80053; 81001; 82550; 83690; 84484; 85025; 87426; 88304; 93005; 96361; 96374; 96375; 96376; 99285; A4314; A4364; A4930; A6219; G0378; J0694; J0780; J1100; J1170; J2250; J2270; J2405; J2704; J2710; J2765; J3010; J3490; J7030; Q9967; U0003; U0005; A4452; G0379